=== PATIENT | female | born 1975 | race Caucasian/White ===

== ENCOUNTER 2021-08-07 01:18 | Day surgery (SDC) | payer OTHER, SELFPAY ==
[2021-07-30 14:00] VITALS: BMI 32.3
[2021-08-07 11:19] VITALS: BP 159/108; PULSE 106; RESP 18; TEMP 36.6; O2SAT 100
[2021-08-07] MEDS: LACTATED RINGERS 1,000 ML 150 ML IV CONT (11:25)
--- NOTE | 2021-08-07 12:04 | WPDANESEPPF ---
Anes - Initial Pre Proc Eval Procedure: Operation Date: 08/07/21 12:30 Proposed Procedures p Esophagogastroduodenoscopy & Colonoscopy - Ezekiel Castro MD Date/Time: 08/07/21 12:04 Surgeon: Ezekiel Castro MD Pre Op Diagnosis: abdominal pain Patient Data Age: 46 Gender: F Height: 1.65 m Weight: 85.1 kg Last Vital Signs Temp 36.6 C 08/07/21 11:19 Pulse 106 H 08/07/21 11:19 Resp 18 08/07/21 11:19 BP 159/108 H 08/07/21 11:19 Pulse Ox 100 08/07/21 11:19 Allergies Allergy/AdvReac Type Severity Reaction Status Date / Time No Known Allergies Allergy Verified 08/07/21 11:18 Home Medications Medication Instructions Recorded Confirmed Type cholecalciferol (vitamin D3) 125 125 mcg PO DAILY #30 cap 06/21/21 07/30/21 Rx mcg (5,000 unit) capsule clonidine HCl 0.3 mg tablet 0.3 mg PO DAILY #30 tablet 06/21/21 07/30/21 Rx mupirocin 2 % topical ointment 1 applic TOPICAL TID #22 g 06/21/21 07/30/21 Rx ondansetron HCl 4 mg tablet 4 mg PO Q8H PRN #30 tablet 06/21/21 07/30/21 Rx propranolol 80 mg tablet 80 mg PO Q12H #60 tablet 06/21/21 07/30/21 Rx venlafaxine 37.5 mg 37.5 mg PO DAILY #30 cap 06/21/21 07/30/21 Rx capsule,extended release 24 hr pantoprazole [Protonix] 40 mg PO QAM 07/30/21 07/30/21 History Patient hx anesthesia problems: none Family hx anesthesia problems: none Results Review: All pre-operative results and documents have been reviewed as part of the pre-operative evaluation. [facility] Past Medical History Medical History Bipolar 2 disorder BMI 31.0-31.9,adult Diffuse abdominal pain Hot flashes Hypertension Insomnia Low vitamin D level Schizophrenia Tremors of nervous system Surgical History Surgical History History of History of hysterectomy Family History Family History Other ADHD Alcohol abuse Allergies Anxiety Diabetes mellitus Hyperlipidemia Hypertension Liver disease Lung cancer Social History Social History Smoking packs per day: 1 Smoking cigarettes per day: 20.0 Smoking status: Current every day smoker Tobacco type: cigarettes Alcohol intake: former Substance use: current Substance use type: marijuana Anes - Eval Final PreProcedure Day of Procedure 08/07/21 12:04 Patient weight: obese Heart: regular rate and rhythm Lungs: decreased breath sounds Airway: Mallampati scale class II Neurological: alert and oriented Last oral intake: >/= 8 hours ASA classification: III Emergent: no Anesthetic plan: proceed Anesthesia type and monitoring: general GIVS and standard monitoring Results Review: All pre-operative results and documents have been reviewed as part of the pre-operative evaluation. Informed Consent: The patient's anesthetic plan and its attendant risks and benefits were discussed with the patient/family/POA. Questions were solicited and answers provided to the satisfaction of the patient/family/POA.
--- NOTE | 2021-08-07 12:28 | PM.HPGS ---
History of Present Illness History of Present Illness Consent: Risks, benefits, and alternatives have been discussed and questions answered. Patient agrees to proceed with procedure. Chief complaint: abdominal pain Narrative: Jose Rafael Barnes is a 46 year old female with intermittent abdominal pain, cholecystectomy did not make a difference. She had colonoscopy but over 10 years ago. Review of Systems Constitutional: Constitutional: Denies headache(s) and Denies weakness Eyes: Eyes: Denies blurry vision ENT: Reports Normal hearing present, Denies headache(s) and Denies neck pain Cardiovascular: Cardiovascular: Denies chest pain and Denies dyspnea Respiratory: Respiratory: Denies dyspnea Gastrointestinal: Gastrointestinal: Reports no additional gastrointestinal complaints Genitourinary: Genitourinary: Denies dysuria Musculoskeletal: Musculoskeletal: Denies neck pain Integumentary/Breasts: Skin/Breast: Denies dry skin Neurologic: Reports Normal hearing present, Denies headache(s) and Denies weakness Psychiatric: Psychiatric: Denies anxiety Endocrine: Endocrine: Denies change in body appearance Hematologic/Lymphatic: Hematologic/Lymphatic: Denies easy bleeding Allergic/Immunologic: Allergic/Immunologic: Denies urticaria PMFSH Past Medical History Medical History (Updated 08/07/21 @ 12:28 by Ezekiel Castro MD) Bipolar 2 disorder BMI 31.0-31.9,adult Colon cancer screening Diffuse abdominal pain Hot flashes Hypertension Insomnia Low vitamin D level Schizophrenia Tremors of nervous system Surgical History Surgical History History of History of hysterectomy Family History Family History Other ADHD Alcohol abuse Allergies Anxiety Diabetes mellitus Hyperlipidemia Hypertension Liver disease Lung cancer Social History Social History Smoking packs per day: 1 Smoking cigarettes per day: 20.0 Smoking status: Current every day smoker Tobacco type: cigarettes Alcohol intake: former Substance use: current Substance use type: marijuana Meds Home Medications and Allergies Home Medications Medication Instructions Recorded Confirmed Type cholecalciferol (vitamin D3) 125 125 mcg PO DAILY #30 cap 06/21/21 07/30/21 Rx mcg (5,000 unit) capsule clonidine HCl 0.3 mg tablet 0.3 mg PO DAILY #30 tablet 06/21/21 07/30/21 Rx mupirocin 2 % topical ointment 1 applic TOPICAL TID #22 g 06/21/21 07/30/21 Rx ondansetron HCl 4 mg tablet 4 mg PO Q8H PRN #30 tablet 06/21/21 07/30/21 Rx propranolol 80 mg tablet 80 mg PO Q12H #60 tablet 06/21/21 07/30/21 Rx venlafaxine 37.5 mg 37.5 mg PO DAILY #30 cap 06/21/21 07/30/21 Rx capsule,extended release 24 hr pantoprazole [Protonix] 40 mg PO QAM 07/30/21 07/30/21 History Allergies Allergy/AdvReac Type Severity Reaction Status Date / Time No Known Allergies Allergy Verified 08/07/21 11:18 Vital Signs Vital Signs - 24 hr 08/07/21 11:19 Temperature 97.9 F Pulse Rate 106 H Respiratory Rate 18 Blood Pressure 159/108 H Pulse Oximetry 100 Exam Const: General: comfortable and no acute distress HENMT: General nose exam: Normal nares present Eyes: General: appearance normal, both eyes and all related structures Neck: Neck: no JVD Resp: Auscultation: clear to auscultation bilaterally Cardio: Rate: regular rate Rhythm: regular rhythm GI: Inspection: non-distended GI Palp: Yes Soft to palpation Skin: General skin exam: normal color Neuro: General: gait normal Speech: normal speech Extrem: General: normal to inspection Psych: Mental Status: mental status grossly normal Assessment and Plan Assessment and plan (1) Diffuse abdominal pain: Code(s): R10.84 - Generalized abdominal pain Status: Acute
--- NOTE | 2021-08-07 13:01 | SUR.OPER ---
EGD started at 1231 and ended at 1236. Colonoscopy started at 1241 and ended at 1258.
[2021-08-07 13:02] VITALS: BP 119/77; PULSE 98; RESP 18; O2SAT 100
[2021-08-07 13:12] VITALS: BP 143/90; PULSE 85; RESP 19; O2SAT 100
[2021-08-07 13:22] VITALS: BP 154/79; PULSE 78; RESP 18; O2SAT 100
== END 2021-08-07 13:33 | disposition home or self-care (01) ==
PROVIDERS: PCP Family Medicine; Visit Provider Internal Medicine Gastroenterology
PROC: 0DJ08ZZ Inspection of Upper Intestinal Tract, Via Natural or Artificial Opening Endoscopic (ICD-10-PCS; CPT 43235; principal; 2021-08-07 12:30)
DX: Z12.11 Encounter for screening for malignant neoplasm of colon (principal); R10.84 Generalized abdominal pain; D12.5 Benign neoplasm of sigmoid colon; D12.2 Benign neoplasm of ascending colon; D17.5 Benign lipomatous neoplasm of intra-abdominal organs; D12.3 Benign neoplasm of transverse colon; K29.50 Unspecified chronic gastritis without bleeding; B96.81 Helicobacter pylori [H. pylori] as the cause of diseases classified elsewhere; K64.8 Other hemorrhoids; I10 Essential (primary) hypertension; E55.9 Vitamin D deficiency, unspecified; G47.00 Insomnia, unspecified; F31.9 Bipolar disorder, unspecified; F20.9 Schizophrenia, unspecified; F17.210 Nicotine dependence, cigarettes, uncomplicated
CPT/HCPCS: 45385; 43239; 88305; 88342; J2704; J7120

== ENCOUNTER 2021-08-26 18:34 | Emergency (ER) | payer OTHER, SELFPAY ==
[2021-08-26 19:05] VITALS: BP 151/100; PULSE 75; RESP 16; TEMP 35.9; O2SAT 100
== END 2021-08-26 19:30 | disposition left against medical advice (07) ==
LOC: ANHED 19:54
PROVIDERS: PCP Family Medicine
DX: R29.6 Repeated falls (principal)
CPT/HCPCS: 99199

== ENCOUNTER 2021-09-09 13:19 | Outpatient (CLI) | payer OTHER, SELFPAY ==
--- NOTE | ~2021-09-09 | MR_ITS ---
EXAMINATION: MR brain/brain stem wo con DATE: 09/09/2021 13:58 INDICATION: Frequent falls. Unspecified injury of the head. TECHNIQUE: Magnetic resonance imaging (MRI) of the brain and brainstem was performed without intraven ous contrast. Sequences included sagittal and axial T1-weighted SE, axial diffusion-weighted FS SE, a xial T2*-weighted GRE, axial T2-weighted FLAIR, and axial T2-weighted FSE. Apparent diffusion coeffic ient (ADC) maps were created. COMPARISON: None. FINDINGS: There are no areas of restricted diffusion to suggest acute infarction. No intracranial hemorrhage or abnormal intracranial mass lesion. A couple tiny foci of nonspecific increased white matter T2 signa l in the bilateral frontal lobes which is within normal limits for age. There are no intraparenchymal signal abnormalities seen on the other pulse sequences. The ventricles are symmetric and normal in s ize. There are no abnormal extra-axial fluid collections. Flow voids are seen in the cerebral arterie s on the T2-weighted sequences consistent with their expected patency. Mucous retention cyst and othe rwise mild mucosal thickening in the right maxillary sinus. Additional mild mucosal thickening the bi lateral frontal sinuses and more prominent mucosal thickening the bilateral ethmoid sinuses. Visualiz ed orbits and soft tissues are unremarkable. IMPRESSION: 1. A couple tiny foci of nonspecific white matter T2 hyperintensity which is within normal limits for age. Otherwise normal brain. 2. Prominent sinus disease. Reviewed, dictated and finalized at location A. IMPRESSION: 1. A couple tiny foci of nonspecific white matter T2 hyperintensity which is wi thin normal limits for age. Otherwise normal brain. 2. Prominent sinus disease.
== END 2021-09-09 13:20 | disposition home or self-care (01) ==
PROVIDERS: PCP Family Medicine; Visit Provider Family Medicine
DX: S09.90XA Unspecified injury of head, initial encounter (principal); X58.XXXA Exposure to other specified factors, initial encounter; R93.0 Abnormal findings on diagnostic imaging of skull and head, not elsewhere classified
CPT/HCPCS: 70551

== ENCOUNTER 2021-12-31 14:00 | Outpatient (CLI) | payer BC, SELFPAY ==
--- NOTE | ~2021-12-31 | CT_ITS ---
EXAMINATION: CT sinus wo con DATE: 12/31/2021 14:19 INDICATION: Chronic sinusitis TECHNIQUE: Computed tomography (CT) of the paranasal sinuses was performed without contrast. Iterativ e reconstruction technique was employed. Exam dose: 352.32 mGy-cm total exam DLP. COMPARISON: None FINDINGS: There is mild leftward bowing of the nasal septum. Mild intralamellar cell of right middle nasal turbinate. More prominent interlamellar cell of left mi ddle nasal turbinate. Bilateral nasal antral windows with resection of the uncinate processes. There is a polyp or mucous retention cyst in the lower aspect of each maxillary sinus, larger on the right, measuring up 1.5 cm. Minimal focal mucosal periosteal thickening of the maxillary sinuses. There is patchy opacification of the ethmoid air cells. The frontal and sphenoid sinuses are well-dev eloped and aerated. The mastoid air cells are normally developed and aerated bilaterally. Minimal and inner ear apparatus appear normal bilaterally. IMPRESSION: Mild leftward bowing of nasal septum Interlamellar cell of middle nasal turbinates, more prominent on the left Status post bilateral nasal antral windows Polyp or mucous retention cyst at lower maxillary sinuses, larger on right Patchy opacification of ethmoid air cells Reviewed, dictated and finalized at Location [facility]. Reviewed, dictated and finalized at location B.
== END 2021-12-31 14:01 | disposition home or self-care (01) ==
PROVIDERS: PCP Family Medicine; Visit Provider Otolaryngology
DX: J32.9 Chronic sinusitis, unspecified (principal); J34.2 Deviated nasal septum; J34.3 Hypertrophy of nasal turbinates; R09.81 Nasal congestion; R09.82 Postnasal drip; R44.8 Other symptoms and signs involving general sensations and perceptions; R51.9 Headache, unspecified
CPT/HCPCS: 70486

== ENCOUNTER 2022-01-29 14:22 | Outpatient (CLI) | payer BC, SELFPAY ==
--- NOTE | 2022-01-29 14:30 | ECG_ITS ---
Measurements Intervals [place] Rate: 91 P: 59 NM: 140 QRS: 42 QRSD: 86 T: 26 QT: 354 QTc: 437 Interpretive Statements SINUS RHYTHM RSR' IN V1 OR V2, PROBABLY NORMAL VARIANT BASELINE ARTIFACT- I, II, III, AVR, AVL, AVF BORDERLINE ECG NO PREVIOUS ECG AVAILABLE FOR COMPARISON Electronically Signed On 01-29-2022 15:01:37 CDT by Abe Ewing D.O.
== END 2022-01-29 14:23 | disposition home or self-care (01) ==
LOC: ANHSURGERY 14:25
PROVIDERS: PCP Family Medicine; Visit Provider Otolaryngology
DX: F17.200 Nicotine dependence, unspecified, uncomplicated (principal); Z01.818 Encounter for other preprocedural examination; R94.31 Abnormal electrocardiogram [ECG] [EKG]
CPT/HCPCS: 93005

== ENCOUNTER 2022-01-31 01:49 | Day surgery (SDC) | payer BC, SELFPAY ==
[2022-01-28 14:43] VITALS: BMI 32.8
--- NOTE | 2022-01-28 14:45 | SUR.PREOP ---
Report to the Outpatient Waiting Room, entrance under the green pavilion located off [facility], at time 0630_on date 01/31/22_. OR Time: __0830_. Time changes happen often and if your time is changed the preop area will call you the afternoon before. - You and your visitor will be asked to self-screen and do not enter if you have any COVID symptoms. - Only one visitor and NO children visitors are allowed at this time. - The patient visitor is requested to leave or wait in car when not with patient due to restrictions. - A mask is required within the hospital. Patients may have clear liquids (water, carbonated beverages, clear teas, apple juice) until 3 hours prior to surgery with a maximum of 20 ounces. - No food from midnight until time of surgery - Infants may have breast milk until 4 hours before surgery, infant formula 6 hours prior to surgery. - Children will be allowed to drink immediately following surgery. If applicable, please bring a bottle or sippy cup to assist with drinking. Juice, water, soda, and popsicles are readily available. For infants on formula, please bring formula the day of surgery. Pacifiers are allowed. Take the following medications with a SIP of water the morning of surgery: _propanolol Medications to discontinue per physician __vitamin Date to take last dose___01/28/22 Please no make-up, nail divehi, hairspray, perfume, deodorant, or body powder the day of surgery. No jewelry (including any body piercings) or valuables the day of surgery, leave them at home. Please take a shower or bath the night before, or the morning of, surgery with an antibacterial soap. Wear comfortable, loose fitting clothing. Children are encouraged to wear pajamas. - Jewelry must be removed prior to entering the operating room. Rings and piercings that are not removed may be cut off. - The hospital will not accept responsibility for valuables. - Please leave all valuables, including medications, at home the day of surgery. If you are going home after surgery, a licensed class a truck driver must drive you home. - NO public transportation without another adult. - We recommend that an adult stay with you for 24 hours following discharge. - We also recommend that you do not drive, make important decision, drink alcoholic beverages, or take any drugs that were not prescribed by your health care provider for at least 24 hours after your discharge time. For Pediatric surgeries, we recommend two adults accompany the child home (only one inside the building at this time). Follow any additional instructions given to you from your surgeon. If you or anyone in your household have experienced Covid symptoms in the past week, please notify your surgeon or the nurse liaison at the phone number below for possible testing. Telephone instructions given to _nicho euceda and asked if any additional questions and then verbalized understanding. Patient advised to call surgeon office or pre surgery nurse liaison [phone] if any additional questions.
--- NOTE | 2022-01-30 08:00 | PM.IMHP ---
H&P: HPI History of Present Illness Date/Time: 01/30/22 08:00 Chief Complaint: nasal obstruction nasal congestion turbinate hypertrophy septal deviation panda bullosa chronic sinusitis recurrent sinusitis Narrative: planned surgical procedure Review of Systems Review of Systems: All systems reviewed & are unremarkable except as noted in HPI and below [facility] Past Medical History Medical History (Updated 01/30/22 @ 08:02 by Herminio Calderon MD) Bipolar 2 disorder BMI 31.0-31.9,adult BMI 32.0-32.9,adult BMI greater than 30 Changing skin lesion Colon cancer screening Diffuse abdominal pain Head trauma Helicobacter positive gastritis Hot flashes Hypertension Insomnia Irritable bowel syndrome with constipation Low vitamin D level Open comedone Right shoulder pain Schizophrenia Tremors of nervous system Surgical History Surgical History History of History of hysterectomy Family History Family History Grandparent Alcohol abuse Father Cancer Mother Diabetes mellitus Hypertension Depression Thyroid disorder Daughter Thyroid disorder Other ADHD Allergies Anxiety Hyperlipidemia Liver disease Lung cancer Social History Social History Smoking packs per day: 1 Smoking cigarettes per day: 20.0 Smoking status: Current some day smoker Tobacco type: cigarettes Additional smoking assessment comments: 1 ppd x 30 years Alcohol intake: former Substance use: current Substance use type: marijuana Other substance usage details: smoking 2x daily Spiritual care concerns: No Meds Home Medications and Allergies Home Medications Medication Instructions Recorded Confirmed Type pantoprazole 40 mg tablet,delayed 40 mg PO QAM #90 tabs 10/30/21 01/28/22 Rx release (Protonix) cholecalciferol (vitamin D3) 125 125 mcg PO DAILY #30 caps 12/30/21 01/28/22 Rx mcg (5,000 unit) capsule olanzapine 5 mg tablet 5 mg PO QHS #30 tabs 12/30/21 01/28/22 Rx ondansetron HCl 4 mg tablet 4 mg PO Q8H PRN nausea and 12/30/21 01/28/22 Rx vomiting #30 tabs propranolol 80 mg tablet 80 mg PO Q12H #60 tabs 12/30/21 01/28/22 Rx zaleplon 10 mg capsule 20 mg PO QHS PRN sleep #60 caps 12/30/21 01/28/22 Rx linaclotide 72 mcg capsule 72 mcg PO DAILY #30 caps 01/02/22 01/28/22 Rx (Linzess) Allergies Allergy/AdvReac Type Severity Reaction Status Date / Time No Known Allergies Allergy Verified 01/28/22 14:20 Exam Narrative: septal deviation turbinate I Assessment and Plan Assessment and plan (1) Nasal congestion: Code(s): R09.81 - Nasal congestion Status: Acute Assessment and Plan: OR for image guided endoscopic bilateral maxillary antrostomies without tissue removal, total ethmoidectomies, sphenoidotomies, left panda bullosa resection, endoscopic assisted septoplasty, inferior turbinate submucosal reduction outfracture, risks discussed including blindness change in vision CSF leak brain damage brain septal perforation failure to resolve symptoms bleeding need for splint placement need for postoperative pain medication antibiotics constipation damage to any structure involvement surgery damage to any structure involved during the induction and or maintenance of anesthesia. Patient voiced understanding of these risks and agreed. (2) Chronic sinusitis: Qualifiers: Sinusitis location: unspecified location Qualified Code(s): J32.9 - Chronic sinusitis, unspecified Code(s): J32.9 - Chronic sinusitis, unspecified Status: Acute (3) Facial pressure: Code(s): R44.8 - Other symptoms and signs involving general sensations and perceptions Status: Acute (4) Facial pain: Code(s): R51.9 - Headache, unspecified Status: Acute (5) Ear pre
[2022-01-31] VITALS (12 sets, daily range): BP systolic 107–143; BP diastolic 67–96; PULSE 70–88; RESP 13–20; TEMP 36.7; O2SAT 93–100
--- NOTE | 2022-01-31 07:12 | WPDHPUPDATE1 ---
History and Physical Update Update Date/Time: 01/31/22 07:12 History and Physical has been reviewed, including an updated exam of the patient. There are NO changes in the patient's condition. Risks, benefits, and alternatives have been discussed and questions answered. Patient agrees to proceed with procedure.
--- NOTE | 2022-01-31 07:12 | WPDANESEPPF ---
Anes - Initial Pre Proc Eval Procedure: Operation Date: 01/31/22 08:30 Proposed Procedures p Image Guided Bilateral Maxillary Antrostomy without Tissue Removal, Total Ethmoidectomy, Bilateral Sphenoidotomies, Left Resection Latha Bullosa, Bilateral Inferior Turbinectomy with Outfracture - Herminio Calderon MD s Endoscopic Septoplasty - Herminio Calderon MD Date/Time: 01/31/22 07:12 Surgeon: Herminio Calderon MD Pre Op Diagnosis: Chronic Sinusitis Patient Data Age: 46 Gender: F Height: 1.65 m Weight: 89.54 kg Allergies Allergy/AdvReac Type Severity Reaction Status Date / Time No Known Allergies Allergy Verified 01/30/22 14:50 Home Medications Medication Instructions Recorded Confirmed Type cholecalciferol (vitamin D3) 125 125 mcg PO DAILY #30 caps 12/30/21 01/30/22 Rx mcg (5,000 unit) capsule olanzapine 5 mg tablet 5 mg PO QHS #30 tabs 12/30/21 01/30/22 Rx ondansetron HCl 4 mg tablet 4 mg PO Q8H PRN nausea and 12/30/21 01/30/22 Rx vomiting #30 tabs propranolol 80 mg tablet 80 mg PO Q12H #60 tabs 12/30/21 01/30/22 Rx zaleplon 10 mg capsule 20 mg PO QHS PRN sleep #60 caps 12/30/21 01/30/22 Rx pantoprazole 40 mg tablet,delayed 40 mg PO QAM #90 tabs 01/30/22 01/30/22 Rx release (Protonix) Patient hx anesthesia problems: none Family hx anesthesia problems: none Results Review: All pre-operative results and documents have been reviewed as part of the pre-operative evaluation. [facility] Past Medical History Medical History Bipolar 2 disorder BMI 31.0-31.9,adult BMI 32.0-32.9,adult BMI greater than 30 Changing skin lesion Colon cancer screening Diffuse abdominal pain Head trauma Helicobacter positive gastritis Hot flashes Hypertension Insomnia Irritable bowel syndrome with constipation Low vitamin D level Open comedone Right shoulder pain Schizophrenia Tremors of nervous system Surgical History Surgical History History of History of hysterectomy Family History Family History Grandparent Alcohol abuse Father Cancer Mother Diabetes mellitus Hypertension Depression Thyroid disorder Daughter Thyroid disorder Other ADHD Allergies Anxiety Hyperlipidemia Liver disease Lung cancer Social History Social History Smoking packs per day: 1 Smoking cigarettes per day: 20.0 Smoking status: Current some day smoker Tobacco type: cigarettes Additional smoking assessment comments: 1 ppd x 30 years Alcohol intake: former Substance use: current Substance use type: marijuana Other substance usage details: smoking 2x daily Living arrangements: with family Spiritual care concerns: No Anes - Eval Final PreProcedure Day of Procedure 01/31/22 07:12 Patient weight: obese Heart: regular rate and rhythm Lungs: decreased breath sounds Airway: Mallampati scale class III Neurological: alert and oriented Last oral intake: >/= 8 hours ASA classification: III Anesthetic plan: proceed Anesthesia type and monitoring: general ETT and standard monitoring Results Review: All pre-operative results and documents have been reviewed as part of the pre-operative evaluation. Informed Consent: The patient's anesthetic plan and its attendant risks and benefits were discussed with the patient/family/POA. Questions were solicited and answers provided to the satisfaction of the patient/family/POA.
[2022-01-31] MEDS: LACTATED RINGERS 1,000 ML 30 ML IV CONT ×2 (07:30→10:59)
[2022-01-31] MEDS: ACETAMINOPHEN 500 MG TABLET 1000 MG PO (07:30)
[2022-01-31] MEDS: OXYMETAZOLINE HCL 0.05% NAS 15 ML BTL (*BKC) 1 SPRAY NASAL (07:30)
[2022-01-31] MEDS: ceFAZolin 2 GM/D5W 50 ML 2 GM/50 ML BAG IVPB (08:22)
[2022-01-31] MEDS: LIDO 1%/EPINEPHRINE 1:100,000 10 ML VIAL 2 ML INFILTRATE (08:35)
[2022-01-31] MEDS: fentaNYL CITRATE INJ (*CRX) 100 MCG/2 ML VIAL 25 MCG IV PUSH ×6 (11:25→12:19)
--- NOTE | 2022-01-31 11:46 | W.PM.PROC2 ---
Procedure Note - Detailed Date of Procedure 01/31/22 Pre-op Diagnosis Chronic Sinusitis, nasal polyps, panda bullosa, nasal obstruction, nasal congestion, turbinate hypertrophy Post-op Diagnosis Same Procedure Performed Bilateral image guided endoscopic total ethmoidectomies revision maxillary antrostomies sphenoidotomies all without tissue removal left panda bullosa resection endoscopic assisted septoplasty inferior turbinate reduction with outfracture Surgeon Herminio Calderon MD Anesthesia General Indications See above Findings Left caudal septal deviation corrected turbinate hypertrophy well reduced no perforations of polypoid disease tissue within all of the aforementioned sinuses maxillary antrostomies widened total ethmoids taken to skull base orbit septum no CSF leak no orbital injury sphenoid opened all the way down to their dependent areas overall excellent surgery minimal blood loss 40-50 cc Description of Procedure Patient identified consent verified. Patient brought operating. Time-out performed. General anesthesia induced endotracheal tube secured. Image guidance initiated confirmed. Patient prepped draped Afrin-soaked pledgets placed allowed to sit for 5 minutes then removed. Second time-out performed. 50 cc 1% local 1 100,000 parts epinephrine injected to the left panda the septum inferior turbinates. Inferior turbinates reduced submucosally with 2 mm turbinate blade bilaterally and then outfractured. [place] incision made anterior left septum left nasal septal flap elevated with 7 [place] suction crossed over the osteotome osteotome utilized to remove the bent septum septum was closed with [place] incision closed with 5 0 fast gut. Since the septal dissection was minimal was sutured with a quilting 4-0 fast or 4-0 plain gut suture. At this point the turbinates were done bilaterally the septum was done. Left panda incised inferiorly with a sickle blade deviated panda excess panda with microdebrider is straight through cut lateral aspect. Straight through cut utilized to widen the maxillary antrostomies double ball tip probe utilized to connect the natural os is. Microdebrider and Kerr[place] utilized to perform total ethmoidectomies bilaterally. Sphenoid was located with image guidance, to that point, image guidance utilized throughout the case for the sphenoid for the sinus portion. Micro debrider Kerr[place] utilized performed total ethmoidectomies all the way to skull base all the way to the back of the orbit lateral to the orbit medial to the septum. Sphenoid located with image guidance widened using 1 Kerrison 3 Kerrison and sphenoid punch. At this point the frontal outflow readily visible maxillary antrostomies were wide open ethmoid air cells were now. Afrin-soaked pledgets were placed for 5 minutes to sit. There was no active bleeding. No pack was placed bilaterally to stent the middle turbinates which were somewhat destabilized. I performed all dictated portions of procedure. Blood loss 50 cc. No complications. Care the patient given Anesthesiology Estimated Blood Loss -50.0 Drains No Packing Yes (Deandre) Pathology None sent Complications No immediate complications Condition Stable Disposition PACU
[2022-01-31] MEDS: oxyCODONE HCL (*CRX) 5 MG TAB IR PO (12:42)
== END 2022-01-31 13:20 | disposition home or self-care (01) ==
PROVIDERS: PCP Family Medicine; Visit Provider Otolaryngology
PROC: (CPT 31256; principal; 2022-01-31 08:30)
PROC: (CPT 30520; 2022-01-31 08:30)
DX: J32.9 Chronic sinusitis, unspecified (principal); R09.81 Nasal congestion; R44.8 Other symptoms and signs involving general sensations and perceptions; R51.9 Headache, unspecified; H93.8X9 Other specified disorders of ear, unspecified ear; R09.82 Postnasal drip; J34.3 Hypertrophy of nasal turbinates; J34.2 Deviated nasal septum; J34.89 Other specified disorders of nose and nasal sinuses; F17.210 Nicotine dependence, cigarettes, uncomplicated
CPT/HCPCS: 31256; 30520; 30140; 31257; 31240; 61782; A9270; J0330; J0690; J1100; J2250; J2370; J2405; J2704; J3010; J7120

== ENCOUNTER 2022-07-23 18:45 | Emergency (ER) | payer BC, SELFPAY ==
--- NOTE | ~2022-07-23 | CT_ITS ---
EXAMINATION: CT abdomen pelvis wo con DATE: 07/24/2022 00:11 INDICATION: left flank pain TECHNIQUE: Computed tomography (CT) of the abdomen and pelvis was performed without intravenous contr ast. Automated exposure control and iterative reconstruction technique were employed. The dose-length product was 524.65 mGy-cm. COMPARISON: CT renal 09/27/2005. FINDINGS: Lower thorax: Minimal bibasilar atelectasis. Liver: Normal. Biliary/Gallbladder: Gallbladder is absent. No bile duct dilation. Pancreas: No mass or duct dilation. Spleen: Normal. Adrenals:No mass. Kidneys: Punctate left midpole nonobstructing calcification. No suspicious mass. No hydronephrosis. GI tract: No small or large bowel dilation. Normal appendix. Mesentery/Peritoneum: No ascites, mass, or free air. Retroperitoneum: No mass. Atherosclerotic abdominal aortic and/or arterial calcifications. Pelvis: Moderately distended urinary bladder. Punctate calcification in the dependent urinary bladder , may represent a recently passed stone. No wall thickening. Surgically absent uterus. Normal bilater al ovaries.. Soft Tissues: Small uncomplicated fat-containing umbilical and infraumbilical ventral abdominal wall hernias Bones: No acute osseous finding. IMPRESSION: Punctate calcification in the dependent bladder lumen, may represent a recently passed stone. No acut e abdominopelvic process detected. Specifically there is no CT evidence of obstructive uropathy or di verticulitis. Reviewed, dictated and finalized at location K. IMPRESSION: Punctate calcification in the dependent bladder lumen, may represent a recently passed stone. No acute abdominopelvic process detected. Specifically there is no CT evidence of obstructive uropathy or diverticulitis.
[2022-07-23 19:31] VITALS: BP 168/96; PULSE 96; RESP 18; TEMP 36.9; O2SAT 99
[2022-07-23 19:36] VITALS: BP 135/91; PULSE 86; RESP 20; O2SAT 97
[2022-07-23 20:21] LABS: Appearance Urine Cloudy (Clear); Bacteria Urine 4+ /hpf; Bilirubin Urine Negative (Negative); Blood Urine Negative (Negative); Color Urine Yellow (Yellow); Glucose Urine UA Negative (Negative); Hyaline Casts Urine Present /lpf; Ketones Urine Negative (Negative); Leukocyte Esterase Ur Trace LEU/UL (Negative); Nitrate Urine Positive (Negative); Non Pathogenic Casts 0-2; Protein Urine Negative (Negative); Specific Grav Ur 1.006 (1.001-1.035); Squamous Epithelial Cell Urine Moderate /hpf (Few); Urobilinogen Urine 0.2 mg/dL (<2.0); pH Urine 7.5 (5.0-9.0)
[2022-07-23 20:26] LABS: Add Urine Microscopic? YES
[2022-07-23 21:19] LABS: Basophils Percent Auto 0.3 % (0.2-1.2); Eosinophils Absolute Auto 0.1 K/mm3 (0-0.3); Eosinophils Percent Auto 0.9 % (0-4.4); Hematocrit 45.3 % (37.0-47.0); Hemoglobin 15.1 g/dL (12.0-15.0); Immature Granulocyte Absolute 0.05 K/mm3 (0.00-0.031); Immature Granulocyte Percent A 0.5 % (0-0.5); Lymphocytes Absolute Auto 4.24 K/mm3 (0.9-3.2); Mean Corpuscular HGB Conc 33.3 g/dl (32-36); Mean Corpuscular Hemoglobin 31.1 pg (26-34); Mean Corpuscular Volume 93.2 fl (80-100); Mean Platelet Volume 9.4 fl (7.4-10.4); Monocytes Absolute Auto 0.6 K/mm3 (0.1-0.6); Monocytes Percent Auto 5.5 % (2.6-8.5); Neutrophils Absolute Auto 5.6 K/mm3 (1.3-6.7); Neutrophils Percent Auto 52.8 % (45.5-73.1); Platelet Count Result 299 k/mm3 (150-375); Red Blood Count 4.86 M/mm3 (4.2-5.4); Red Cell Distribution Width 12.6 % (11.5-14.5); White Blood Count 10.6 K/mm3 (4.5-10.0)
[2022-07-23 21:29] LABS: Alanine Aminotransferase 29 U/L (6-35); Albumin Level 4.7 g/dL (3.5-5.1); Alkaline Phosphatase 95 U/L (38-126); Anion Gap 6 mmol/L (8-16); Aspartate Amino Transferase 26 U/L (14-36); Bilirubin,Total 0.5 mg/dL (0.2-1.3); Blood Urea Nitrogen 8 mg/dL (7-17); Carbon Dioxide 32 mmol/L (22-30); Chloride 103 mmol/L (98-107); Estimated CRCL calculation 100 ml/min; Estimated Glomerular Filt Rate > 60; Glucose 98 mg/dL (65-110); Potassium 3.7 mmol/L (3.4-5.0); Sodium 141 mmol/L (137-145)
--- NOTE | 2022-07-23 23:29 | ED.ABDPAIN ---
HPI - Abdominal Pain General Chief Complaint: Abdominal Pain <JAMESON Shelton Last Filed: 07/24/22 03:34> Stated Complaint: left kidney pain - hx of stones <JAMESON Shelton Last Filed: 07/24/22 03:34> Time Seen by Provider: 07/23/22 22:44 <Elias Trinidad PA-C - Last Filed: 07/24/22 03:34> Source: patient <JAMESON Shelton Last Filed: 07/24/22 03:34> Mode of arrival: ambulatory <JAMESON Shelton Last Filed: 07/24/22 03:34> Limitations: no limitations <JAMESON Shelton Last Filed: 07/24/22 03:34> History of Present Illness HPI narrative: This is a 47-year-old female who presents with left flank pain starting this morning. She has a long history of kidney stones and feels like her symptoms are similar today. She reports the pain is mainly in the left flank and radiates down into the left side of the abdomen and into the groin. Does report nausea. Denies vomiting. She reports urinary frequency but unable to urinate a full stream. Denies hematuria. <JAMESON Shelton Last Filed: 07/24/22 03:34> Related Data Allergies/Adverse Reactions: Allergies Allergy/AdvReac Type Severity Reaction Status Date / Time No Known Allergies Allergy Verified 07/23/22 18:46 <JAMESON Shelton Last Filed: 07/24/22 03:34> Review of Systems Review of Systems: CONSTITUTIONAL: Denies fever, chills, or sweats. EYES: Denies visual changes, redness, or discharge. ENT: Denies rhinorrhea, congestion, sore throat, or otalgia. CARDIOVASCULAR: Denies chest pain, palpitations, or edema. RESPIRATORY: Denies cough or dyspnea. GASTROINTESTINAL: Endorses left flank pain radiating into the left abdomen. Endorses nausea denies other abdominal pain, vomiting, or diarrhea. GENITOURINARY: Denies dysuria or hematuria. SKIN: Denies rash or itching. MUSCULOSKELETAL: Denies back pain, joint pain, or myalgia. NEUROLOGIC: Denies headache, numbness, dizziness, or weakness. PSYCHIATRIC: Denies anxiety or depression. <Elias Trinidad PA-C - Last Filed: 07/24/22 03:34> [facility] Past Medical History Medical History: Medical History Bipolar 2 disorder BMI 31.0-31.9,adult BMI 32.0-32.9,adult BMI 34.0-34.9,adult BMI greater than 30 Bronchitis Changing skin lesion Colon cancer screening Diffuse abdominal pain Head trauma Helicobacter positive gastritis Hot flashes Hypertension Insomnia Irritable bowel syndrome with constipation Low vitamin D level Open comedone Right shoulder pain Schizophrenia Tremors of nervous system <JAMESON Shelton Last Filed: 07/24/22 03:34> Surgical History Surgical History: Surgical History History of History of hysterectomy <Elias Trinidad PA-C - Last Filed: 07/24/22 03:34> Family History Family History: Family History Grandparent Alcohol abuse Father Cancer Mother Diabetes mellitus Hypertension Depression Thyroid disorder Daughter Thyroid disorder Other ADHD Allergies Anxiety Hyperlipidemia Liver disease Lung cancer <JAMESON Sehlton Last Filed: 07/24/22 03:34> Social History Social History: Social History (Updated 07/16/22 @ 11:40 by LOI Cabrera) Smoking packs per day: 1 Smoking cigarettes per day: 20.0 Smoking status: Current some day smoker Tobacco type: cigarettes Additional smoking assessment comments: 1 ppd x 30 years Alcohol intake: former Substance use: current Substance use type: marijuana Other substance usage details: smoking 2x daily Lack of Transportation: No Lack of Food: Never True Current Housing: I Have Housing Concerned About Future Housing: No Difficulty Paying Gas/Electric Bills: No Difficulty Paying for Meds: YES Currently Unemployed: No Education: High Scho
[2022-07-23] MEDS: fentaNYL CITRATE INJ (*CRX) 100 MCG/2 ML VIAL 50 MCG IV PUSH (23:42)
[2022-07-23] MEDS: ONDANSETRON INJ 4 MG/2 ML VIAL IV PUSH (23:43)
[2022-07-23] MEDS: SODIUM CHLORIDE 0.9% IV 1,000 ML 999 ML IV CONT (23:43)
[2022-07-24] MEDS: fentaNYL CITRATE INJ (*CRX) 100 MCG/2 ML VIAL 50 MCG IV PUSH (00:52)
[2022-07-24 01:35] VITALS: BP 127/85; PULSE 76; RESP 17; O2SAT 98
== END 2022-07-24 01:48 | disposition home or self-care (01) ==
PROVIDERS: Preventive Medicine Aerospace Medicine; Emergency Provider Physician Assistant; PCP Family Medicine
DX: N20.0 Calculus of kidney (principal); F17.210 Nicotine dependence, cigarettes, uncomplicated; F31.81 Bipolar II disorder; I10 Essential (primary) hypertension; F20.9 Schizophrenia, unspecified
CPT/HCPCS: 36415; 74176; 80053; 81001; 85025; 87077; 87086; 87186; 96361; 96374; 96375; 96376; 99284; J2405; J3010; J7030

== ENCOUNTER 2022-08-26 12:33 | Outpatient (CLI) | payer BC, SELFPAY ==
--- NOTE | ~2022-08-26 | XR_ITS ---
EXAMINATION: XR abdomen/kub 1V INDICATION: Microscopic hematuria TECHNIQUE: Supine views of the abdomen were obtained on 2 radiographs. COMPARISON: CT, 07/23/2022 FINDINGS: No urolithiasis is identified. The known left kidney stone is obscured by bowel contents. T here are phleboliths of the pelvis. The visualized lung bases are clear. Cholecystectomy clips are no manju. There is mild osteoarthritis of the hips. IMPRESSION: 1. No urolithiasis identified. Reviewed, dictated and finalized at location L.
== END 2022-08-26 12:34 | disposition home or self-care (01) ==
PROVIDERS: PCP Family Medicine; Visit Provider Physician Assistant Medical
DX: R31.21 Asymptomatic microscopic hematuria (principal); Z87.442 Personal history of urinary calculi
CPT/HCPCS: 74018

== ENCOUNTER 2023-01-27 14:11 | Outpatient (CLI) | payer BC, SELFPAY ==
--- NOTE | ~2023-01-27 | CT_ITS ---
EXAMINATION: CT abdomen pelvis wo/w con DATE: 01/27/2023 14:59 INDICATION: Gross hematuria TECHNIQUE: Computed tomography (CT) of the abdomen and pelvis was performed without and with 1 30 cc Omnipaque 350 intravenous contrast. The dose-length product was 2871.10 mGy-cm. Automated exposure co ntrol and iterative reconstruction technique were employed. COMPARISON: CT dated 07/23/2022. FINDINGS: There are fissural nodules on the right, largest measuring 9 x 6 mm. There is emphysema. Th ere is dependent atelectasis. No endobronchial lesions aren't size is normal. No significant pleural or pericardial effusion. There is a 3 mm nonobstructing left renal stone. There is a subcutaneous cys t measuring 2.2 cm in the left gluteal region, likely sebaceous cysts. Fatty infiltration of the liver. The spleen, pancreas, adrenal glands and kidneys are unremarkable. N onobstructive bowel pattern. No significant vascular abnormality. No lymphadenopathy. Ureters are nor mal in course and caliber. Bladder is unremarkable. Moderate lumbar spondylosis. IMPRESSION: 1. Nonobstructing 3 mm left renal stone. 2: Right fissural nodules measuring up to 8 mm. Recommend follow-up low dose CT chest in 12 months. Reviewed, dictated and finalized at location B.
--- NOTE | ~2023-01-27 | XR_ITS ---
EXAMINATION: XR abdomen/kub 1V DATE: 01/27/2023 14:38 INDICATION: Gross hematuria. TECHNIQUE: A supine view of the abdomen on 2 radiographs was obtained. COMPARISON: CT abdomen and pelvis 01/27/2023 FINDINGS: There are no dilated loops of bowel. Surgical clips in the right upper quadrant are likely from cholecystectomy. The kidneys are obscured by bowel. There are phleboliths in the pelvis. IMPRESSION: 1. No visible urolithiasis. Reviewed, dictated and finalized at location E. IMPRESSION: 1. No visible urolithiasis.
[2023-01-27 14:45] LABS: Estimated Glomerular Filt Rate > 60
== END 2023-01-27 14:12 | disposition home or self-care (01) ==
PROVIDERS: PCP Family Medicine; Visit Provider Nurse Practitioner Adult Health
DX: R31.0 Gross hematuria (principal); N20.0 Calculus of kidney
CPT/HCPCS: 74018; 74178; Q9967

== ENCOUNTER → 2023-02-16 14:24 | Outpatient (REF) | payer BC, SELFPAY | LOC: ANHLAB 14:24 | PROVIDERS: PCP Family Medicine; Visit Provider Plastic Surgery | DX: L72.0 Epidermal cyst (principal) | CPT/HCPCS: 88305 ==

== ENCOUNTER 2023-02-21 10:52 | Outpatient (CLI) | payer BC, SELFPAY ==
--- NOTE | ~2023-02-21 | CT_ITS ---
EXAMINATION: CT sinus wo con DATE: 02/21/2023 11:18 INDICATION: Chronic sinusitis TECHNIQUE: Computed tomography (CT) of the paranasal sinuses was performed without intravenous contra st. The dose-length product was 340.69 mGy-cm. Automated exposure control and iterative reconstruction technique were employed. COMPARISON: CT dated 12/31/2021 FINDINGS: There is mucosal thickening of the frontal, ethmoid, sphenoid and maxillary sinuses. There are surgical changes bilaterally consistent with previous resection of the ostiomeatal units. No sign ificant nasal septal deviation. There is a mucous retention cyst of the right maxillary sinus. IMPRESSION: 1. Moderate pansinusitis. Reviewed, dictated and finalized at location A. IMPRESSION: 1. Moderate pansinusitis.
== END 2023-02-21 10:53 | disposition home or self-care (01) ==
LOC: ANHIMG 10:55
PROVIDERS: PCP Family Medicine; Visit Provider Otolaryngology
DX: J32.4 Chronic pansinusitis (principal)
CPT/HCPCS: 70486

== ENCOUNTER 2023-04-21 00:46 | Day surgery (SDC) | payer BC, SELFPAY ==
--- NOTE | 2023-04-20 07:52 | PM.IMHP ---
H&P: HPI History of Present Illness Date/Time: 04/20/23 07:52 Chief Complaint: Chronic sinusitis recurrent sinusitis Narrative: planned surgical procedure Review of Systems Review of Systems: All systems reviewed & are unremarkable except as noted in HPI and below [facility] Past Medical History Medical History Bipolar 2 disorder BMI 31.0-31.9,adult BMI 32.0-32.9,adult BMI 34.0-34.9,adult BMI 36.0-36.9,adult BMI greater than 30 Bronchitis Changing skin lesion Colon cancer screening Diffuse abdominal pain Gastroesophageal reflux disease Head trauma Helicobacter positive gastritis Hot flashes Hypertension Insomnia Irritable bowel syndrome with constipation Low vitamin D level Open comedone Right shoulder pain Schizophrenia Tremors of nervous system Surgical History Surgical History History of History of hysterectomy Family History Family History Grandparent Alcohol abuse Father Cancer Mother Diabetes mellitus Hypertension Depression Thyroid disorder Daughter Thyroid disorder Sibling GERD (gastroesophageal reflux disease) Other ADHD Allergies Anxiety Hyperlipidemia Liver disease Lung cancer Social History Social History (Updated 02/16/23 @ 14:04 by Pennie Corey MA) Smoking packs per day: 1 Smoking cigarettes per day: 20.0 Smoking status: Current every day smoker Tobacco type: cigarettes Second hand tobacco smoke exposure: Yes Additional smoking assessment comments: 1 ppd x 30 years Alcohol intake: former Substance use: current Substance use type: marijuana Other substance usage details: smoking 2x daily Lack of Transportation: No Lack of Food: Never True Current Housing: I Have Housing Concerned About Future Housing: No Difficulty Paying Gas/Electric Bills: No Difficulty Paying for Meds: No Currently Unemployed: No Education: High School Diploma/GED Difficulty w/ Childcare or Family Care: No Living arrangements: with family Occupation/Education: occupation 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 Gender identity (if verbalized by the patient): Female Spiritual care concerns: No Meds Home Medications and Allergies Home Medications Medication Instructions Recorded Confirmed Type albuterol sulfate 90 mcg/actuation 2 inh inhalation Q6H PRN shortness 02/20/22 02/16/23 Rx aerosol inhaler of breath or wheezing #8.5 grams fluticasone propionate 50 1 - 2 spray intranasal BID #16 mL 04/07/22 02/16/23 Rx mcg/actuation nasal spray,suspension (Flonase Allergy Relief) mupirocin 2 % topical ointment 1 applic topical BID #22 grams 07/16/22 02/16/23 Rx cholecalciferol (vitamin D3) 125 125 mcg PO DAILY #30 caps 11/25/22 02/16/23 Rx mcg (5,000 unit) capsule ondansetron HCl 4 mg tablet 4 mg PO Q8H PRN nausea and 01/25/23 02/16/23 Rx vomiting #30 tabs pantoprazole 40 mg tablet,delayed 40 mg PO QAM #90 tabs 02/24/23 Rx release (Protonix) propranolol 80 mg tablet 80 mg PO Q12H #60 tabs 02/24/23 Rx clindamycin HCl 300 mg capsule 300 mg PO Q8H #21 caps 03/25/23 Rx alprazolam 0.5 mg tablet 0.5 mg PO BID PRN anxiety #60 tabs 03/27/23 Rx bupropion HCl 150 mg 24 hr tablet, 150 mg PO QAM #90 tabs 03/27/23 Rx extended release zolpidem 5 mg tablet (Ambien) 5 mg PO QHS PRN insomnia #30 tabs 03/27/23 Rx benzonatate 100 mg capsule 100 mg PO TID PRN cough #30 caps 03/31/23 Rx doxycycline hyclate 100 mg capsule 100 mg PO Q12H 14 days #28 caps 04/15/23 04/15/23 Rx prednisone 5 mg tablet 5 mg PO .daily #14 tabs 04/15/23 04/15/23 Rx Allergies Allergy/AdvReac Type Severity Reaction Status Date / Time No Known Allergies Allergy Verified 02/25/23 13:20 Exam Narrative: chronic appearing sinuses
[2023-04-20 09:15] VITALS: BMI 38.2
--- NOTE | 2023-04-20 09:21 | PC.NURSE ---
Report to the Outpatient Waiting Room, entrance under the green pavilion located off [facility], at time 0600 on date 04/21/23. Planned Procedure Time: 0730. Time changes happen often and if your time is changed the preop area will call you the afternoon before. - You and your visitor will be asked to self-screen and do not enter if you have any COVID symptoms. - A mask is optional within the hospital at this time. Patients may have clear liquids (water, carbonated beverages, clear teas, apple juice) until 3 hours prior to surgery with a maximum of 20 ounces. - No food from midnight until time of surgery Take the following medications with a SIP of water the morning of surgery: BUPROPION, DOXYCYCLINE, PREDNISONE, PROPRANOLOL, INHALER & XANAX IF NEEDED DO NOT STOP ANY OF YOUR OTHER PRESCRIPTION MEDICATIONS PRIOR TO SURGERY ?EXCEPT THE FOLLOWING Medications to discontinue per physician: VITAMINS Date to take last dose: NO MORE UNTIL AFTER SURGERY Please no make-up, nail tamazight, hairspray, perfume, deodorant, or body powder the day of surgery. No jewelry (including any body piercings) or valuables the day of surgery, leave them at home. Please take a shower or bath the night before, or the morning of, surgery with an antibacterial soap. Wear comfortable, loose fitting clothing. - Jewelry must be removed prior to entering the operating room. Rings and piercings that are not removed may be cut off. - The hospital will not accept responsibility for valuables. - Please leave all valuables, including medications, at home the day of surgery. If you are going home after surgery, a licensed cart driver must drive you home. - NO public transportation without another adult if you receive anesthesia. - We recommend that an adult stay with you for 24 hours following discharge. - We also recommend that you do not drive, make important decision, drink alcoholic beverages, or take any drugs that were not prescribed by your health care provider for at least 24 hours after your discharge time. Follow any additional instructions given to you from your surgeon. If you or anyone in your household have experienced Covid symptoms in the past week, please notify your surgeon or the nurse liaison at the phone number below for possible testing. Telephone instructions given to PT - PUMA MCCLURE and asked if any additional questions and then verbalized understanding. Patient advised to call surgeon office or pre surgery nurse liaison [phone] if any additional questions.
[2023-04-21] VITALS (8 sets, daily range): BP systolic 129–153; BP diastolic 82–90; PULSE 69–93; RESP 12–23; TEMP 36.1–37.4; O2SAT 92–100
--- NOTE | 2023-04-21 06:21 | ECG_ITS ---
Measurements Intervals [place] Rate: 68 P: 53 KS: 166 QRS: 50 QRSD: 78 T: 35 QT: 401 QTc: 429 Interpretive Statements SINUS RHYTHM COMPARED TO ECG 01/29/2022 14:49:27 NO SIGNIFICANT CHANGES Electronically Signed On 04-21-2023 13:36:30 [employer]YSTER FLOATER by Sarbjit Tao M.D.
[2023-04-21] MEDS: ACETAMINOPHEN 500 MG TABLET 1000 MG PO (06:46)
--- NOTE | 2023-04-21 06:59 | WPDANESEPPF ---
Anes - Initial Pre Proc Eval Procedure: Operation Date: 04/21/23 07:30 Proposed Procedures p Image Guided Endoscopic Left Sided Frontal Sinusotomy, Left Sided Sphenoidotomy, Right Sided Maxillary Antrostomy, Right Sided Total Ethmoidectomy, Right Sided Sphenoidotomy, - Herminio Calderon MD s Possible Septoplasty - Herminio Calderon MD Date/Time: 04/21/23 06:59 Surgeon: Herminio Calderon MD Pre Op Diagnosis: recurrent chronic sinusistis Patient Data Age: 48 Gender: F Height: 1.65 m Weight: 104.35 kg Allergies Allergy/AdvReac Type Severity Reaction Status Date / Time No Known Allergies Allergy Verified 04/20/23 09:13 Home Medications Medication Instructions Recorded Confirmed Type albuterol sulfate 90 mcg/actuation 2 inh inhalation Q6H PRN shortness 02/20/22 04/20/23 Rx aerosol inhaler of breath or wheezing #8.5 grams cholecalciferol (vitamin D3) 125 125 mcg PO DAILY #30 caps 11/25/22 04/21/23 Rx mcg (5,000 unit) capsule ondansetron HCl 4 mg tablet 4 mg PO Q8H PRN nausea and 01/25/23 04/21/23 Rx vomiting #30 tabs pantoprazole 40 mg tablet,delayed 40 mg PO QAM #90 tabs 02/24/23 04/21/23 Rx release (Protonix) propranolol 80 mg tablet 80 mg PO Q12H #60 tabs 02/24/23 04/21/23 Rx alprazolam 0.5 mg tablet 0.5 mg PO BID PRN anxiety #60 tabs 03/27/23 04/21/23 Rx bupropion HCl 150 mg 24 hr tablet, 150 mg PO QAM #90 tabs 03/27/23 04/21/23 Rx extended release zolpidem 5 mg tablet (Ambien) 5 mg PO QHS PRN insomnia #30 tabs 03/27/23 04/21/23 Rx doxycycline hyclate 100 mg capsule 100 mg PO Q12H 14 days #28 caps 04/15/23 04/15/23 Rx prednisone 5 mg tablet 5 mg PO .daily #14 tabs 04/15/23 04/15/23 Rx Laboratory Tests 04/21/23 06:36 PT Pending INR Pending APTT Pending Sodium Pending Potassium Pending Chloride Pending Carbon Dioxide Pending Anion Gap Pending BUN Pending Creatinine Pending Estim Creat Clear Calc Pending Estimated GFR Pending Glucose Pending Calcium Pending Patient hx anesthesia problems: none Family hx anesthesia problems: none Results Review: All pre-operative results and documents have been reviewed as part of the pre-operative evaluation. [facility] Past Medical History Medical History Bipolar 2 disorder BMI 31.0-31.9,adult BMI 32.0-32.9,adult BMI 34.0-34.9,adult BMI 36.0-36.9,adult BMI greater than 30 Bronchitis Changing skin lesion Colon cancer screening Diffuse abdominal pain Gastroesophageal reflux disease Head trauma Helicobacter positive gastritis Hot flashes Hypertension Insomnia Irritable bowel syndrome with constipation Low vitamin D level Open comedone Right shoulder pain Schizophrenia Tremors of nervous system Surgical History Surgical History History of History of hysterectomy Family History Family History Grandparent Alcohol abuse Father Cancer Mother Diabetes mellitus Hypertension Depression Thyroid disorder Daughter Thyroid disorder Sibling GERD (gastroesophageal reflux disease) Other ADHD Allergies Anxiety Hyperlipidemia Liver disease Lung cancer Social History Social History Smoking packs per day: 1 Smoking cigarettes per day: 20.0 Years smoked: 30 Smoking pack-years: 30.00 Smoking status: Current every day smoker Tobacco type: cigarettes Second hand tobacco smoke exposure: Yes Additional smoking assessment comments: 1 ppd x 30 years Alcohol intake: never Substance use: current Substance use type: marijuana Other substance usage details: smoking 2x daily Lack of Transportation: No Lack of Food: Never True Current Housing: I Have Housing Concerned About Futur
[2023-04-21 07:04] LABS: Anion Gap 10 mmol/L (8-16); Blood Urea Nitrogen 7 mg/dL (7-17); Calcium 8.8 mg/dL (8.4-10.2); Carbon Dioxide 23 mmol/L (22-30); Chloride 105 mmol/L (98-107); Estimated CRCL calculation 102 ml/min; Estimated Glomerular Filt Rate > 60; Glucose 114 mg/dL (65-110); Potassium 3.9 mmol/L (3.4-5.0); Sodium 138 mmol/L (137-145)
[2023-04-21] MEDS: LACTATED RINGERS 1,000 ML 30 ML IV CONT ×2 (07:10→09:33)
--- NOTE | 2023-04-21 07:18 | WPDHPUPDATE1 ---
History and Physical Update Update Date/Time: 04/21/23 07:18 History and Physical has been reviewed, including an updated exam of the patient. There are NO changes in the patient's condition. Risks, benefits, and alternatives have been discussed and questions answered. Patient agrees to proceed with procedure. Other than possible septoplasty.
[2023-04-21 07:21] LABS: INR 0.9; Prothrombin Time 12.7 Seconds (11.1-14.7)
[2023-04-21 07:23] LABS: Partial Thromboplastin Time 31.2 SECONDS (22.3-36.8)
[2023-04-21] MEDS: ceFAZolin 2 GM/D5W 50 ML 2 GM/50 ML BAG IVPB (07:40)
[2023-04-21] MEDS: OXYMETAZOLINE HCL 0.05% NAS 15 ML BTL (*BKC) 1 SPRAY NASAL (07:58)
[2023-04-21] MEDS: LIDO 1%/EPINEPHRINE 1:100,000 20 ML VIAL 10 ML INFILTRATE (08:52)
[2023-04-21] MEDS: MUPIROCIN 2% OINT 22 GM TUBE 1 APPLIC TOPICAL (09:28)
[2023-04-21] MEDS: fentaNYL CITRATE INJ (*CRX) 100 MCG/2 ML VIAL 25 MCG IV PUSH ×4 (09:44→10:17)
--- NOTE | 2023-04-21 09:51 | P.OP_ITS ---
Procedure Note - Detailed Date of Procedure 04/21/23 Pre-op Diagnosis recurrent chronic sinusistis Post-op Diagnosis Same Procedure Performed image guided endoscopic right-sided middle turbinectomy maxillary antrostomy sphenoidotomy left-sided image guided endoscopic maxillary antrostomy frontal sinusotomy sphenoidotomy. Surgeon Herminio Calderon MD Anesthesia General Indications Recurrent chronic sinusitis Findings diseased polypoid tissue really polypoid right middle turbinate obstructing the maxillary outflow maxillary antrostomy as well as sphenoidotomy. Because of this right middle turbs performed. The left maxillary antrostomy had tearing it when I was suctioning necessitating revision maxillary antrostomy on the. Description of Procedure Patient identified consent verified prep. Patient brought OR. Time-out performed general anesthesia induced endotracheal tube secured airway. Patient prepped reposition procedure confirmed 2nd time-out performed image guidance initiating confirmed. Afrin-soaked pledgets for 5 minutes then removed. Left- sided middle turbinate medialized. Maxillary antrostomy was attempting to suction out there was a tear in scar tissue in the posterior region of it I read the performed a revision left-sided maxillary antrostomy to make sure was in good continuity not scarred on any further. The natural outflow tract to connect the maxillary antrostomy. No ethmoid air cells remained. Sphenoidotomy performed with sphenoid punch and Kerrison. Posterior septal artery was cauterized to ensure no bleeding postoperatively. Frontal sinusotomy performed with image guidance will all the all this is performed. Frontal sinusotomy performed with 70 degree scope cobra Hosemann. Much wider frontal sinus frontal sinus outflow following procedure. Right-sided maxillary antrostomy was viewed middle turbinate is completely obstructing the maxillary antrostomy as well as sphenoid os. Middle turbinectomy performed after the injection of 3 cc 1% lidocaine 1 1000 parts epinephrine the middle turbinate stalk. A straight through cut utilized to remove it stalk was cauterized with Bovie suction electrocautery setting of 15. Maxillary antrostomy performed hemorrhage guidance on the right side a straight through cut backbiter microdebrider. Look much better afterwards. Sphenoidotomy performed with sphenoid punch Kerrison posterior septal cauterized as well. Patient tolerated procedure well total blood loss about 35 cc. No complications. Condition given Anesthesiology. No pack was placed on the left side. Operative site was copiously irrigated with sterile normal saline. I performed all dictated portions of procedure Estimated Blood Loss 35 Drains No Packing Yes Pathology None sent Complications No immediate complications Condition Stable Disposition PACU [facility] Billing Surgery - Charge Forward: Surgery Billing
[2023-04-21] MEDS: oxyCODONE HCL (*CRX) 5 MG TAB IR PO (10:38)
== END 2023-04-21 11:31 | disposition home or self-care (01) ==
PROVIDERS: Anesthesiology; PCP Family Medicine; Visit Provider Otolaryngology
PROC: (CPT 31256; principal; 2023-04-21 07:30)
DX: J32.9 Chronic sinusitis, unspecified (principal); J33.8 Other polyp of sinus; I10 Essential (primary) hypertension; F20.9 Schizophrenia, unspecified; K21.9 Gastro-esophageal reflux disease without esophagitis; G47.00 Insomnia, unspecified; K58.1 Irritable bowel syndrome with constipation; F31.9 Bipolar disorder, unspecified; F17.210 Nicotine dependence, cigarettes, uncomplicated; F12.90 Cannabis use, unspecified, uncomplicated; Z79.51 Long term (current) use of inhaled steroids; E66.9 Obesity, unspecified; Z68.37 Body mass index [BMI] 37.0-37.9, adult
CPT/HCPCS: 31256; 31287; 31276; 61782; 36415; 80048; 85610; 85730; 93005; A9270; J0690; J1100; J1170; J2250; J2405; J2704; J3010; J7120

== ENCOUNTER 2023-07-10 00:24 | Day surgery (SDC) | payer BC, SELFPAY ==
--- NOTE | 2023-07-05 17:24 | PM.IMHP ---
H&P: HPI History of Present Illness Date/Time: 07/05/23 17:24 Chief Complaint: stress incontinence Narrative: bothersome stress incontinence. Documented on urodynamics. Desires surgical correction Review of Systems Review of Systems: All systems reviewed & are unremarkable except as noted in HPI and below PMFSH Past Medical History Medical History Bipolar 2 disorder BMI 31.0-31.9,adult BMI 32.0-32.9,adult BMI 34.0-34.9,adult BMI 35.0-35.9,adult BMI 36.0-36.9,adult BMI 37.0-37.9, adult BMI greater than 30 Bronchitis Changing skin lesion Colon cancer screening Difficult bowel movements Diffuse abdominal pain Gastroesophageal reflux disease Head trauma Helicobacter positive gastritis Hot flashes Hypertension Insomnia Irritable bowel syndrome with constipation Low vitamin D level Open comedone Right shoulder pain Schizophrenia Stress incontinence Tremors of nervous system Surgical History Surgical History History of History of hysterectomy Hx of sinus surgery Family History Family History Grandparent Alcohol abuse Father Cancer Mother Diabetes mellitus Hypertension Depression Thyroid disorder Cirrhosis Daughter Thyroid disorder Sibling No problems noted. Other ADHD Allergies Anxiety Hyperlipidemia Liver disease Lung cancer Social History Social History Smoking packs per day: 1 Smoking cigarettes per day: 20.0 Years smoked: 30 Smoking pack-years: 30.00 Smoking status: Current every day smoker Tobacco type: cigarettes Second hand tobacco smoke exposure: Yes Additional smoking assessment comments: 1 ppd x 30 years Alcohol intake: never Substance use: current Substance use type: marijuana Other substance usage details: smoking 2x daily Do You Feel Safe in your Home?: Yes Lack of Transportation: No Lack of Food: Never True Current Housing: I Have Housing Concerned About Future Housing: No Difficulty Paying Gas/Electric Bills: No Difficulty Paying for Meds: No Currently Unemployed: No Education: High School Diploma/GED Difficulty w/ Childcare or Family Care: No Living arrangements: with family Occupation/Education: occupation 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 Gender identity (if verbalized by the patient): Female Spiritual care concerns: No Meds Home Medications and Allergies Home Medications Medication Instructions Recorded Confirmed Type albuterol sulfate 90 mcg/actuation 2 inh inhalation Q6H PRN shortness 02/20/22 07/02/23 Rx aerosol inhaler of breath or wheezing #8.5 grams bupropion HCl 150 mg 24 hr tablet, 150 mg PO QAM #90 tabs 03/27/23 07/02/23 Rx extended release cholecalciferol (vitamin D3) 125 125 mcg PO DAILY #90 caps 04/25/23 07/02/23 Rx mcg (5,000 unit) capsule ondansetron HCl 4 mg tablet 4 mg PO Q8H PRN nausea and 04/25/23 07/02/23 Rx vomiting #30 tabs pantoprazole 40 mg tablet,delayed 40 mg PO QAM #90 tabs 04/25/23 07/02/23 Rx release (Protonix) propranolol 80 mg tablet 80 mg PO Q12H #60 tabs 05/27/23 07/02/23 Rx alprazolam 0.5 mg tablet 0.5 mg PO BID PRN anxiety #60 tabs 06/29/23 07/02/23 Rx zolpidem 5 mg tablet (Ambien) 5 mg PO QHS PRN insomnia #30 tabs 06/29/23 07/02/23 Rx cefdinir 300 mg capsule 300 mg PO Q12H 7 days #14 caps 07/02/23 07/02/23 Rx valacyclovir 1 gram tablet 2,000 mg PO Q12H #4 tabs 07/02/23 07/02/23 Rx (Valtrex) Allergies Allergy/AdvReac Type Severity Reaction Status Date / Time No Known Allergies Allergy Verified 07/02/23 12:52 Exam Narrative: no acute distress normal breathing urethral mobility on exam Assessment and Plan Assessment and plan (1) Stress in
[2023-07-08 12:16] VITALS: BMI 37.0
--- NOTE | 2023-07-08 12:16 | PC.NURSE ---
Report to the Outpatient Waiting Room, entrance under the green pavilion located off [facility], at time 0800 on date 07/10/23. Planned Procedure Time: 1000. Time changes happen often and if your time is changed the preop area will call you the afternoon before. - You and your visitor will be asked to self-screen and do not enter if you have any COVID symptoms. - A mask is optional within the hospital at this time. Patients may have clear liquids (water, carbonated beverages, clear teas, apple juice) until 3 hours prior to surgery with a maximum of 20 ounces. - No food from midnight until time of surgery Take the following medications with a SIP of water the morning of surgery: ALPRAZOLAM IF NEEDED, ANTIBIOTIC, BUPROPION, PROPRANOLOL DO NOT STOP ANY OF YOUR OTHER PRESCRIPTION MEDICATIONS PRIOR TO SURGERY ?EXCEPT THE FOLLOWING Medications to discontinue per physician: VITAMINS Date to take last dose: NO MORE UNTIL AFTER SURGERY Please no make-up, nail iranian, hairspray, perfume, deodorant, or body powder the day of surgery. No jewelry (including any body piercings) or valuables the day of surgery, leave them at home. Please take a shower or bath the night before, or the morning of, surgery with an antibacterial soap. Wear comfortable, loose fitting clothing. - Jewelry must be removed prior to entering the operating room. Rings and piercings that are not removed may be cut off. - The hospital will not accept responsibility for valuables. - Please leave all valuables, including medications, at home the day of surgery. If you are going home after surgery, a licensed local company tanker driver must drive you home. - NO public transportation without another adult if you receive anesthesia. - We recommend that an adult stay with you for 24 hours following discharge. - We also recommend that you do not drive, make important decision, drink alcoholic beverages, or take any drugs that were not prescribed by your health care provider for at least 24 hours after your discharge time. Follow any additional instructions given to you from your surgeon. If you or anyone in your household have experienced Covid symptoms in the past week, please notify your surgeon or the nurse liaison at the phone number below for possible testing. Telephone instructions given to PT - PUMA MCCLURE and asked if any additional questions and then verbalized understanding. Patient advised to call surgeon office or pre surgery nurse liaison [phone] if any additional questions.
--- NOTE | 2023-07-09 12:55 | WPDANESEPPF ---
Anes - Initial Pre Proc Eval Procedure: Operation Date: 07/10/23 10:00 Proposed Procedures p Urethral Sling - Dank Swift MD Date/Time: 07/09/23 12:55 Surgeon: Dank Swift MD Pre Op Diagnosis: stress incontinence Patient Data Age: 48 Gender: F Height: 1.65 m Weight: 101 kg Allergies Allergy/AdvReac Type Severity Reaction Status Date / Time No Known Allergies Allergy Verified 07/08/23 12:14 Home Medications Medication Instructions Recorded Confirmed Type albuterol sulfate 90 mcg/actuation 2 inh inhalation Q6H PRN shortness 02/20/22 07/08/23 Rx aerosol inhaler of breath or wheezing #8.5 grams bupropion HCl 150 mg 24 hr tablet, 150 mg PO QAM #90 tabs 03/27/23 07/08/23 Rx extended release cholecalciferol (vitamin D3) 125 125 mcg PO DAILY #90 caps 04/25/23 07/08/23 Rx mcg (5,000 unit) capsule ondansetron HCl 4 mg tablet 4 mg PO Q8H PRN nausea and 04/25/23 07/08/23 Rx vomiting #30 tabs pantoprazole 40 mg tablet,delayed 40 mg PO QAM #90 tabs 04/25/23 07/08/23 Rx release (Protonix) propranolol 80 mg tablet 80 mg PO Q12H #60 tabs 05/27/23 07/08/23 Rx alprazolam 0.5 mg tablet 0.5 mg PO BID PRN anxiety #60 tabs 06/29/23 07/08/23 Rx zolpidem 5 mg tablet (Ambien) 5 mg PO QHS PRN insomnia #30 tabs 06/29/23 07/08/23 Rx Patient hx anesthesia problems: none Family hx anesthesia problems: none Results Review: All pre-operative results and documents have been reviewed as part of the pre-operative evaluation. [facility] Past Medical History Medical History (Updated 07/10/23 @ 08:42 by Ramy Schulz DO) Bipolar 2 disorder Bronchitis Changing skin lesion Colon cancer screening Difficult bowel movements Diffuse abdominal pain Gastroesophageal reflux disease Head trauma Helicobacter positive gastritis Hot flashes Hypertension Insomnia Irritable bowel syndrome with constipation Low vitamin D level Open comedone Right shoulder pain Schizophrenia Stress incontinence Tremors of nervous system Surgical History Surgical History History of History of hysterectomy Hx of sinus surgery Family History Family History Grandparent Alcohol abuse Father Cancer Mother Diabetes mellitus Hypertension Depression Thyroid disorder Cirrhosis Daughter Thyroid disorder Sibling No problems noted. Other ADHD Allergies Anxiety Hyperlipidemia Liver disease Lung cancer Social History Social History Smoking packs per day: 1 Smoking cigarettes per day: 20.0 Years smoked: 30 Smoking pack-years: 30.00 Smoking status: Current every day smoker Tobacco type: cigarettes Second hand tobacco smoke exposure: Yes Additional smoking assessment comments: 1 ppd x 30 years Alcohol intake: never Substance use: current Substance use type: marijuana Other substance usage details: smoking 2x daily Do You Feel Safe in your Home?: Yes Lack of Transportation: No Lack of Food: Never True Current Housing: I Have Housing Concerned About Future Housing: No Difficulty Paying Gas/Electric Bills: No Difficulty Paying for Meds: No Currently Unemployed: No Education: High School Diploma/GED Difficulty w/ Childcare or Family Care: No Living arrangements: with family Occupation/Education: occupation 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
--- NOTE | 2023-07-10 04:37 | WPDHPUPDATE1 ---
History and Physical Update Update Date/Time: 07/10/23 04:37 History and Physical has been reviewed, including an updated exam of the patient. There are NO changes in the patient's condition. Risks, benefits, and alternatives have been discussed and questions answered. Patient agrees to proceed with procedure.
[2023-07-10] MEDS: LACTATED RINGERS 1,000 ML 30 ML IV CONT (08:30)
[2023-07-10 08:40] VITALS: BP 160/95; PULSE 85; RESP 16; TEMP 36.3; O2SAT 99
[2023-07-10 09:02] LABS: INR 0.9; Partial Thromboplastin Time 27.4 SECONDS (22.3-36.8)
[2023-07-10 09:04] LABS: Anion Gap 8 mmol/L (8-16); Blood Urea Nitrogen 14 mg/dL (7-17); Carbon Dioxide 25 mmol/L (22-30); Chloride 108 mmol/L (98-107); Estimated CRCL calculation 88 ml/min; Estimated Glomerular Filt Rate > 60; Glucose 131 mg/dL (65-110); Potassium 3.8 mmol/L (3.4-5.0); Sodium 141 mmol/L (137-145)
[2023-07-10] MEDS: FAMOTIDINE 20 MG/2 ML VIAL IV PUSH (09:05)
[2023-07-10] MEDS: ceFAZolin 2 GM/D5W 50 ML 2 GM/50 ML BAG IVPB (09:30)
[2023-07-10] MEDS: BUPIVACAINE/EPINEPHRINE 0.5% 10 ML VIAL INFILTRATE (09:56)
--- NOTE | 2023-07-10 10:01 | P.OP_ITS ---
Procedure Note - Detailed Date of Procedure 07/10/23 Pre-op Diagnosis stress incontinence Post-op Diagnosis Same Procedure Performed mid urethral sling cystoscopy Surgeon Dank Swift MD Anesthesia MAC and Local Indications This is a female with confirm stress urinary incontinence. She desires surgical correction. She understands the risks of bleeding, infection, injury to the urinary tract, vaginal mesh extrusion, urinary tract mesh erosion, obstructive voiding requiring a secondary procedure, hip and leg pain, dyspareunia, inability to improve overactive bladder symptoms. She agrees to proceed. Description of Procedure She was correctly identified. Informed consent obtained. She was brought the operating room. She was given appropriate anesthesia. She was given appropriate perioperative antibiotics. A time-out performed. I marked out the site of the inner thigh incisions. I anesthetized the skin and made those incisions. I anesthetized the anterior vaginal wall over the mid urethra. I made a 1 cm incision. I dissected out laterally taking great care not to injure the refilled vaginal wall. I passed the helical trocars. First on the left. Then on the right. I did this from the thigh incision towards the vaginal incis ion. The sling was connected to the trocars and brought out through the thigh incision. I tensioned the sling appropriately. I cut and the plastic sheaths. I then closed the incision with 2 0 Vicryl. On cystoscopy there is no tumors or surgical artifact. There was no surgical artifact in the urethra. I cut the excess sling material. Close incisions with glue. She was awakened and transferred to the PACU in stable condition. Implants Urethral sling Estimated Blood Loss 40 Drains No Packing No Pathology None sent Complications No immediate complications Condition Stable Disposition PACU
[2023-07-10 10:04] VITALS: BP 99/67; PULSE 86; RESP 16; O2SAT 100
[2023-07-10] MEDS: oxyCODONE HCL (*CRX) 5 MG TAB IR PO (10:27)
[2023-07-10 10:30] VITALS: BP 123/76; PULSE 78; RESP 20
[2023-07-10 10:45] VITALS: BP 126/80; PULSE 75; RESP 20
== END 2023-07-10 10:54 | disposition home or self-care (01) ==
PROVIDERS: Anesthesiology; PCP Family Medicine; Visit Provider Urology
PROC: (CPT 57288; principal; 2023-07-10 10:00)
DX: N39.3 Stress incontinence (female) (male) (principal); F31.81 Bipolar II disorder; K21.9 Gastro-esophageal reflux disease without esophagitis; I10 Essential (primary) hypertension; E55.9 Vitamin D deficiency, unspecified; F20.9 Schizophrenia, unspecified; F17.210 Nicotine dependence, cigarettes, uncomplicated; F12.90 Cannabis use, unspecified, uncomplicated; E66.9 Obesity, unspecified; Z68.36 Body mass index [BMI] 36.0-36.9, adult; Z79.51 Long term (current) use of inhaled steroids
CPT/HCPCS: 57288; 36415; 80048; 85610; 85730; A9270; C1771; J0690; J1100; J2250; J2405; J2704; J3010; J7030; J7120

== ENCOUNTER 2023-11-20 10:06 | Outpatient (CLI) | payer BC, SELFPAY ==
--- NOTE | ~2023-11-20 | XR_ITS ---
XR abdomen/kub 1V Ordering provider: CELI Goyal History: . HEMATURIA, REOCCURRING KIDNEY STONES . Comparison: January 27, 2023 FINDINGS: BOWEL: Nonobstructive bowel gas pattern. ORGANOMEGALY: Hepatomegaly. SIGNIFICANT PATHOLOGIC CALCIFICATIONS: None. OTHER: Degenerative changes of the spine. No free air is seen under the diaphragm. IMPRESSION: NO ACUTE ABDOMINAL FINDINGS. Reviewed, dictated and finalized at location A.
== END 2023-11-20 10:07 | disposition home or self-care (01) ==
PROVIDERS: PCP Family Medicine; Visit Provider Nurse Practitioner Family
DX: R10.9 Unspecified abdominal pain (principal)
CPT/HCPCS: 74018

== ENCOUNTER 2023-12-25 12:39 | Outpatient (CLI) | payer BC, SELFPAY ==
--- NOTE | ~2023-12-25 | CT_ITS ---
EXAMINATION: CT abdomen pelvis wo con DATE: 12/25/2023 12:57 INDICATION: Unspecified abdominal pain. Flank pain and hematuria. TECHNIQUE: Computed tomography (CT) of the abdomen and pelvis was performed without intravenous contr ast. Automated exposure control and iterative reconstruction technique were employed. The dose-length product was 978.93 mGy-cm. COMPARISON: 01/27/2023 FINDINGS: Mild emphysema. Heart size is normal. No pericardial or pleural effusion. Cholecystectomy clips in th e gallbladder fossa. Diffuse hepatic steatosis with more focal hepatic steatosis along the gallbladde r fossa. Spleen, pancreas and bilateral adrenal glands are normal. 2 mm stone at the interpolar regio n of the left kidney. No other urolithiasis in the right kidney or along the bilateral ureters. No hy dronephrosis. Bladder is normal. The uterus is not identified and has likely been surgically resected . 2.6 cm cystic lesion at the left ovary with gradient increasing dependent density suggesting a poss ible hemorrhagic cyst. Right ovary is unremarkable. Multiple phleboliths in the deep pelvis. Bowels i ncluding appendix are normal. No free intraperitoneal gas or fluid. No pathologically enlarged abdomi nal or pelvic lymphadenopathy. Mild degenerative skeletal changes in the spine and pelvis. There are also a few scattered small sclerotic bone islands in the pelvis and proximal femurs. IMPRESSION: 1. 2 mm nonobstructing left renal stone. No other urolithiasis or hydronephrosis. 2. 2.6 cm complex cystic left ovarian lesion, possibly hemorrhagic cyst. Recommend follow-up pelvic u ltrasound for further evaluation. Reviewed, dictated and finalized at location A. IMPRESSION: 1. 2 mm nonobstructing left renal stone. No other urolithiasis or hydronephrosi s. 2. 2.6 cm complex cystic left ovarian lesion, possibly hemorrhagic cyst. Recomm end follow-up pelvic ultrasound for further evaluation.
== END 2023-12-25 12:40 ==
LOC: MICIMG 12:39
PROVIDERS: PCP Urology; Visit Provider Nurse Practitioner Family
DX: R10.9 Unspecified abdominal pain (principal); R31.9 Hematuria, unspecified; M54.9 Dorsalgia, unspecified; R50.9 Fever, unspecified; N20.0 Calculus of kidney
CPT/HCPCS: 74176

== ENCOUNTER 2024-03-16 16:14 | Outpatient (CLI) | payer BC, SELFPAY ==
--- NOTE | ~2024-03-16 | US_ITS ---
EXAMINATION: US pelvic complete DATE: 03/16/2024 16:50 INDICATION: Unspecified ovarian cyst, unspecified side. TECHNIQUE: Multiple transabdominal sonographic images of the pelvis were obtained. COMPARISON: CT abdomen and pelvis 12/25/2023 FINDINGS: The uterus is absent. There is no free fluid in the pelvis. The right ovary measures 3.3 x 1.3 x 1.4 cm. The left ovary measures 3.8 x 2.6 x 2.5 cm. There is normal vascular flow in the ovaries. IMPRESSION: 1. Normal ovaries. 2. Absent uterus. Reviewed, dictated and finalized at location A. [employer] ADVISOR
== END 2024-03-16 16:15 | disposition home or self-care (01) ==
PROVIDERS: PCP Family Medicine; Visit Provider Obstetrics & Gynecology
DX: N83.209 Unspecified ovarian cyst, unspecified side (principal)
CPT/HCPCS: 76856

== ENCOUNTER 2024-05-12 00:39 | Day surgery (SDC) | payer BC, SELFPAY ==
[2024-04-21 13:21] VITALS: BMI 33.3
[2024-05-12 08:58] VITALS: BP 138/86; PULSE 74; RESP 18; TEMP 36.4; O2SAT 100
--- NOTE | 2024-05-12 09:02 | WPDANESEPPF ---
Anes - Initial Pre Proc Eval Procedure: Operation Date: 05/12/24 10:00 Proposed Procedures p Esophagogastroduodenoscopy & Colonoscopy - Slabador Tovar MD Date/Time: 05/12/24 09:02 Surgeon: Salbador Tovar MD Pre Op Diagnosis: gastritis, Hpylori as cause of disease, benign Patient Data Age: 49 Gender: F Height: 1.65 m Weight: 98.6 kg Last Vital Signs Temp 36.4 C L 05/12/24 08:58 Pulse 74 05/12/24 08:58 Resp 18 05/12/24 08:58 BP 138/86 05/12/24 08:58 Pulse Ox 100 05/12/24 08:58 O2 Del Method Room Air 05/12/24 08:58 Allergies Allergy/AdvReac Type Severity Reaction Status Date / Time No Known Allergies Allergy Verified 05/12/24 08:50 Home Medications ?Medication ?Instructions ?Recorded ?Confirmed ?Type fluticasone propionate 50 1 - 2 spray intranasal BID #16 mL 07/20/23 05/12/24 Rx mcg/actuation nasal spray,suspension (Flonase Allergy Relief) zolpidem 5 mg tablet (Ambien) 5 mg PO QHS PRN insomnia #30 tabs 09/28/23 05/12/24 Rx bupropion HCl 150 mg 24 hr tablet, 150 mg PO QAM #90 tabs 12/29/23 05/12/24 Rx extended release albuterol sulfate 90 mcg/actuation 2 inh inhalation Q6H PRN shortness 01/25/24 05/12/24 Rx aerosol inhaler of breath or wheezing #8.5 grams ondansetron HCl 4 mg tablet 4 mg PO Q8H PRN nausea and 01/25/24 05/12/24 Rx vomiting #30 tabs propranolol 80 mg tablet 80 mg PO Q12H #60 tabs 01/25/24 05/12/24 Rx alprazolam 0.5 mg tablet 0.5 mg PO BID PRN anxiety #60 tabs 04/27/24 05/12/24 Rx cholecalciferol (vitamin D3) 125 125 mcg PO DAILY #90 caps 04/27/24 05/12/24 Rx mcg (5,000 unit) capsule pantoprazole 40 mg tablet,delayed 40 mg PO QAM #90 tabs 04/27/24 05/12/24 Rx release (Protonix) fluoxetine 20 mg capsule 20 mg PO DAILY #30 caps 04/28/24 05/12/24 Rx Patient hx anesthesia problems: none Family hx anesthesia problems: none Results Review: All pre-operative results and documents have been reviewed as part of the pre-operative evaluation. [facility] Past Medical History Medical History Nausea & vomiting Marijuana smoker Adenomatous colon polyp Folliculitis Ovarian cyst Difficult bowel movements Stress incontinence Nasal crusting Nasal polyps Gastroesophageal reflux disease Hx of renal calculi Bronchitis Irritable bowel syndrome with constipation Helicobacter positive gastritis Nasal congestion Chronic sinusitis Facial pressure Facial pain Ear pressure PND (post-nasal drip) Open comedone Changing skin lesion Right shoulder pain Head trauma Colon cancer screening Schizophrenia Low vitamin D level Insomnia Diffuse abdominal pain Bipolar 2 disorder Tremors of nervous system Hot flashes Hypertension Surgical History Surgical History Hx of sinus surgery History of History of hysterectomy Family History Family History Grandparent Alcohol abuse Father Cancer Mother Diabetes mellitus Hypertension Depression Thyroid disorder Cirrhosis Daughter Thyroid disorder Sibling No problems noted. Other ADHD Allergies Anxiety Hyperlipidemia Liver disease Lung cancer Social History Social History Smoking packs per day: 1 Smoking cigarettes per day: 20.0 Years smoked: 30 Smoking pack-years: 30.00 Smoking status: Current every day smoker Tobacco type: cigarettes Second hand tobacco smoke exposure: Yes Additional smoking assessment comments: 1 ppd x 30 years Alcohol intake: never Substance use: current Substance use type: marijuana Other substance usage details: smoking 2x daily Last use: daily Do You Feel Safe in your Home?: Yes Lack of Transportation: No Lack of Food: Never True Current Housing: I Have Housing Concerned About Future Housing: No Difficulty Paying Gas/Electric Bills: No Difficulty Paying for Meds: No Currently Unemployed: No Education: High School Diploma/GED Difficulty w/ Childcare or Family Care: No Living arrangements: with family Occupation/Education: occupation 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 Informed Consent: The patient's anesthetic plan and its attendant risks and benefits were discussed with the patient/family/POA. Questions were solicited and answers provided to the satisfaction of the patient/family/POA.
--- NOTE | 2024-05-12 09:35 | P.HP_ITS ---
H&P: HPI History of Present Illness Date/Time: 05/12/24 09:35 Chief Complaint: Dyspepsia-history of colon polyps. Narrative: This patient has a history of longstanding dyspepsia, having being treated for H pylori in 2021. Erradication not confirm. She continued to have intermittent dyspepsia and epigastric discomfort. In addition there is a history of colonic polyps and is here for surveillance colonoscopy. Review of Systems Review of Systems: All systems reviewed & are unremarkable except as noted in HPI and below PMFSH Past Medical History Medical History Nausea & vomiting Marijuana smoker Adenomatous colon polyp Folliculitis Ovarian cyst Difficult bowel movements Stress incontinence Nasal crusting Nasal polyps Gastroesophageal reflux disease Hx of renal calculi Bronchitis Irritable bowel syndrome with constipation Helicobacter positive gastritis Nasal congestion Chronic sinusitis Facial pressure Facial pain Ear pressure PND (post-nasal drip) Open comedone Changing skin lesion Right shoulder pain Head trauma Colon cancer screening Schizophrenia Low vitamin D level Insomnia Diffuse abdominal pain Bipolar 2 disorder Tremors of nervous system Hot flashes Hypertension Surgical History Surgical History Hx of sinus surgery History of History of hysterectomy Family History Family History Grandparent Alcohol abuse Father Cancer Mother Diabetes mellitus Hypertension Depression Thyroid disorder Cirrhosis Daughter Thyroid disorder Sibling No problems noted. Other ADHD Allergies Anxiety Hyperlipidemia Liver disease Lung cancer Social History Social History Smoking packs per day: 1 Smoking cigarettes per day: 20.0 Years smoked: 30 Smoking pack-years: 30.00 Smoking status: Current every day smoker Tobacco type: cigarettes Second hand tobacco smoke exposure: Yes Additional smoking assessment comments: 1 ppd x 30 years Alcohol intake: never Substance use: current Substance use type: marijuana Other substance usage details: smoking 2x daily Last use: daily Do You Feel Safe in your Home?: Yes Lack of Transportation: No Lack of Food: Never True Current Housing: I Have Housing Concerned About Future Housing: No Difficulty Paying Gas/Electric Bills: No Difficulty Paying for Meds: No Currently Unemployed: No Education: High School Diploma/GED Difficulty w/ Childcare or Family Care: No Living arrangements: with family Occupation/Education: occupation 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 Gender identity (if verbalized by the patient): Female Spiritual care concerns: No Meds Home Medications and Allergies Home Medications ?Medication ?Instructions ?Recorded ?Confirmed ?Type fluticasone propionate 50 1 - 2 spray intranasal BID #16 mL 07/20/23 05/12/24 Rx mcg/actuation nasal spray,suspension (Flonase Allergy Relief) zolpidem 5 mg tablet (Ambien) 5 mg PO QHS PRN insomnia #30 tabs 09/28/23 05/12/24 Rx bupropion HCl 150 mg 24 hr tablet, 150 mg PO QAM #90 tabs 12/29/23 05/12/24 Rx extended release albuterol sulfate 90 mcg/actuation 2 inh inhalation Q6H PRN shortness 01/25/24 05/12/24 Rx aerosol inhaler of breath or wheezing #8.5 grams ondansetron HCl 4 mg tablet 4 mg PO Q8H PRN nausea and 01/25/24 05/12/24 Rx vomiting #30 tabs propranolol 80 mg tablet 80 mg PO Q12H #60 tabs 01/25/24 05/12/24 Rx alprazolam 0.5 mg tablet 0.5 mg PO BID PRN anxiety #60 tabs 04/27/24 05/12/24 Rx cholecalciferol (vitamin D3) 125 125 mcg PO DAILY #90 caps 04/27/24 05/12/24 Rx mcg (5,000 unit) capsule pantoprazole 40 mg tablet,delayed 40 mg PO QAM #90 tabs 04/27/24 05/12/24 Rx release (Protonix) fluoxetine 20 mg capsule 20 mg PO DAILY #30 caps 04/28/24 05/12/24 Rx Allergies Allergy/AdvReac Type Severity Reaction Status Date / Time No Known Allergies Allergy Verified 05/12/24 08:50 Vital Signs Vital Signs - 24 hr 05/12/24 08:58 Temperature 97.5 F L Pulse Rate 74 Respiratory Rate 18 Blood Pressure 138/86 Pulse Oximetry 100 Oxygen Delivery Room Air Exam Narrative: no acute distress normal breathing urethral mobility on exam Assessment and Plan Assessment and plan (1) Helicobacter positive gastritis: Code(s): K29.70 - Gastritis, unspecified, without bleeding; B96.81 - Helicobacter pylori [H. pylori] as the cause of diseases classified elsewhere Status: Acute Assessment and Plan: The patient is deemed a good candidate for the procedures. Consent signed. Will proceed. (2) Adenomatous colon polyp: Code(s): D12.6 - Benign neoplasm of colon, unspecified Status: Acute
--- NOTE | 2024-05-12 09:51 | SUR.OPER ---
EGD ended 946, Colonoscopy started 950
[2024-05-12 10:07] VITALS: BP 115/74; PULSE 73; RESP 20; O2SAT 97
[2024-05-12] MEDS: LACTATED RINGERS 1,000 ML 150 ML IV CONT (10:07)
[2024-05-12 10:17] VITALS: BP 125/86; PULSE 65; RESP 28; O2SAT 100
[2024-05-12 10:27] VITALS: BP 132/81; PULSE 64; RESP 24; O2SAT 100
== END 2024-05-12 10:32 | disposition home or self-care (01) ==
PROVIDERS: PCP Family Medicine; Visit Provider Internal Medicine Gastroenterology
PROC: 0DJ08ZZ Inspection of Upper Intestinal Tract, Via Natural or Artificial Opening Endoscopic (ICD-10-PCS; CPT 45378; principal; 2024-05-12 10:00)
DX: Z12.11 Encounter for screening for malignant neoplasm of colon (principal); D12.2 Benign neoplasm of ascending colon; K64.8 Other hemorrhoids; K29.50 Unspecified chronic gastritis without bleeding; K21.9 Gastro-esophageal reflux disease without esophagitis; K58.1 Irritable bowel syndrome with constipation; E55.9 Vitamin D deficiency, unspecified; G47.00 Insomnia, unspecified; I10 Essential (primary) hypertension; N39.3 Stress incontinence (female) (male); J32.9 Chronic sinusitis, unspecified; F20.9 Schizophrenia, unspecified; F31.81 Bipolar II disorder; G25.2 Other specified forms of tremor; F12.90 Cannabis use, unspecified, uncomplicated; F17.210 Nicotine dependence, cigarettes, uncomplicated; Z79.51 Long term (current) use of inhaled steroids; Z98.890 Other specified postprocedural states; Z86.0100 Personal history of colon polyps, unspecified; Z87.442 Personal history of urinary calculi; Z80.1 Family history of malignant neoplasm of trachea, bronchus and lung
CPT/HCPCS: 43239; 45385; 88305; J2003; J2704; J7120

== ENCOUNTER 2024-06-24 14:06 | Outpatient (CLI) | payer BC, SELFPAY ==
--- NOTE | ~2024-06-24 | CT_ITS ---
EXAMINATION:CT diagnostic chest wo con DATE: 06/24/2024 14:22 INDICATION: Solitary pulmonary nodule. TECHNIQUE: Computed tomography (CT) of the chest was performed without intravenous contrast. Automate d exposure control and iterative reconstruction technique were employed. The dose-length product (DLP ) was 184.61 mGy-cm. COMPARISON: CT abdomen and pelvis 12/25/2023, 01/27/23 FINDINGS: There is mild emphysema. There is a 5 mm nodule at minor fissure, stable from 01/27/23. Ther e is a 7 mm nodule at minor fissure, stable from 01/27/23. There is a 2 mm nodule in left lower lobe. There is mild atelectasis bilaterally. No pleural effusion. The heart size is normal. No pericardial effusion. There is diffuse hepatic steatosis. There are changes of cholecystectomy. There is mild tho racic spondylosis. IMPRESSION: 1. Small pulmonary nodules, likely benign. 2. Mild emphysema. Reviewed, dictated and finalized at location A. [facility]
--- OUTSIDE RECORDS SUMMARY | 2024-06-24 14:10 | XMS_ITS | Encounter Summary ---
Author Organization [facility] Address [address] [place] [address] Care Team Providers Care Docking Pilot Name Role Phone Cindy Barnes CELI Primary Care Provider [phone] Encounter Details Date Type Department Care Team (Late st Contact Info) Description 03/21/[address] [facility] [address] [place], [place] [id number] Xenia Payne MD [address] [facility] [address] [place] [address] Social History Tobacco Use Types Packs/Day Years Used Date Smoking Tobacco: Every Day Cigarettes 0.5 42 Smokeless Tobacco: Never Alcohol Use Standard Drinks/Week Comments No 0 (1 standard drink = 0.6 oz pur e alcohol) AUDIT-C Answer Date Recorded Frequency of Alcohol Consumption Never 02/03/2020 Average Number of Drinks Not on file 020 Frequency of Binge Drinking Not on file 06/2019 Comments No Sex and Gender Information Value Date Recorded Sex Assigned at Not on file Legal Sex Female 7:53 PM CDT Gender Identity Not on file Sexual Orientation Not on file COVID-19 Exposure Response Date Recorded In the last month, have you been in contact with someone who was confirmed or suspected to have Coronavirus / COVID-19? No / Unsure 03/19/2020 3:16 PM DRUM STOCK CLERK documented as of this encounter Plan of Treatment Not on file documented as of this encounter Results * PRE-SURGICAL/PRE-PROCEDURE CORONAVIRUS (COVID 19) (03/27/2020 3:09 PM DRUM STOCK CLERK) CORONAVIRUS SARS COV 2 PCR (RESP) NOT DETECTED NOT DETECTED 03/29/2020 1:26 AM DRUM STOCK CLERK [facility] Comment: A Not Detected (negative) test result for this test means that SARS- CoV-2 RNA was not present in the specimen above the limit of detection. A negative result does not rule out the possibility of COVID-19 and should not be used as the sole basis for treatment or patient management decisions. If COVID-19 is still suspected, based on exposure history together with other clinical findings, re-testing should be considered in consultation with public health authorities. Laboratory test results should always be considered in the context of clinical observations and epidemiological data in making a final diagnosis and patient management decisions. Please review the Fact Sheets and FDA authorized labeling available for health care providers and patients using the following websites: https://www.MobileWebsites.Folkstr/home/Covid-19/HCP/QuestIVD/fact- sheet.html https://www.MobileWebsites.Folkstr/home/Covid-19/Patients/ QuestIVD/fact-sheet.html This test has been authorized by the FDA under an Emergency Use Authorization (EUA) for use by authorized laboratories. Due to the current public health emergency, [facility] is receiving a high volume of samples from a wide variety of swabs and media for COVID-19 testing. In order to serve patients during this public health crisis, samples from appropriate clinical sources are being tested. Negative test results derived from specimens received in non-commercially manufactured viral collection and transport media, or in media and sample collection kits not yet authorized by FDA for COVID-19 testing should be cautiously evaluated and the patient potentially subjected to extra precautions such as additional clinical monitoring, including collection of an additional specimen. Methodology: Nucleic Acid Amplification Test (NAAT) includes RT-PCR or TMA Additional information about COVID-19 can be found at the [facility] website: www.[email or web address].Folkstr/Covid19. Test performed at [facility] [address] [place] [address] Director: RAYNE ARTIS DO,MPH FIRST TEST UNKNOWN 03/27/2020 2:40 PM DRUM STOCK CLERK [facility] EMPLOYED IN HEALTHCARE YES 03/27/2020 2:40 PM DRUM STOCK CLERK [facility] SYMPTOMATIC DEFINED BY CDC NO 03/27/2020 2:40 PM DRUM STOCK CLERK [facility] DATE OF SYMPTOM ONSET UNKNOWN 03/27/2020 3:28 PM DRUM STOCK CLERK [facility] HOSPITALIZATION STATUS NO 03/27/2020 2:40 PM DRUM STOCK CLERK [facility] PATIENT IN ICU NO 03/27/2020 2:40 PM DRUM STOCK CLERK [facility] NO 03/27/2020 2:40 PM DRUM STOCK CLERK [facility] NOT 03/27/2020 2:40 PM DRUM STOCK CLERK [facility] PATIENT'S RACE WHITE OR 03/27/2020 2:40 PM DRUM STOCK CLERK [facility] ETHNICITY NONHISPANIC 03/27/2020 2:40 PM DRUM STOCK CLERK [facility] SOURCE (QST) NASOPHARYNGEAL SWAB 03/27/2020 2:40 PM DRUM STOCK CLERK [facility] NASOPHARYNGEAL SWAB / Unknown 03/27/2020 3:09 PM DRUM STOCK CLERK us Xenia Payne MD MICROBIOLOGY - GENERAL ORDER FARZAD Final Result [facility] [address] [place] [address], [place] [phone] [facility] [address] [place] [address], [place] documented in this encounter Visit Diagnoses Diagnosis Preop testing- Primary Preoperative examination, unspecified documented in this encounter Additional Health Concerns Infection Onset Date Last Indicated Resolved Time COVID-19 Rule Out 03/27/2020 03/27/2020 03/29/2020 1:26 AM DRUM STOCK CLERK COVID-19 Rule Out 12/27/2020 12/27/2020 12/27/2020 9:59 AM CDT COVID-19 Rule Out 12/27/2020 12/27/2020 12/29/2020 1:43 AM CDT documented as of this encounter Care Teams Docking Pilot Relationship Specialty Start Date End Date Cindy Barnes FNP [address] [place] [address] PCP - General Nurse Practitioner Family 04/08/18 documented as of this encounter
--- OUTSIDE RECORDS SUMMARY | 2024-06-24 14:11 | XMS_ITS | Clinical Summary ---
Author Organization [facility] Address [address] [facility] [place] [address] Care Team Providers Care Steward/Stewardess Dining Room Name Role Phone JordanLucía moraleschelle MATT Primary Care Provider [phone] Source Comments [facility],non-owned Affiliates and Associated Physician Practices is amultiple site organization consisting of ambulatory clinics and hospital sitesin [place], [place], [place] and [place]. This disclosure is being madepursuant to the Care Everywhere program and may not contain all information available regarding this patient. Last updated 18.[facility] Allergies No known active allergies Medications * Be aware that medications may not be up to date on this document. Alwaysverify current medications with the patient. Medication Sig Dispensed Refills Start Date End Date Status risperiDONE (RISPERDAL) 1 MG tablet Take 1 mg by mouth once daily 05/11/2018 Active zolpidem (AMBIEN) 10 MG tablet Take 10 mg by mouth at bedtime 05/11/2018 Active traZODone (DESYREL) 50 MG tablet Take 1.5 tablets by mouth at bedtime 05/04/2018 Active propranolol (INDERAL) 80 MG tablet Take 80 mg by mouth 2 times daily 05/04/2018 Active buPROPion SR 12hr (WELLBUTRIN SR) 200 MG tablet Take 200 mg by mouth 2 times daily 05/11/2018 Active spironolactone (ALDACTONE) 50 MG tablet Take 50 mg by mouth once daily 06/01/2018 Active omeprazole (PRILOSEC) 20 MG capsule Take 20 mg by mouth once daily 05/27/2018 Active erythromycin (ERYDERM) 2 % solution Apply 1 drop to affected area once daily 05/10/2018 Active terbinafine (LAMISIL) 250 MG tabletIndications: Onychomycosis Take 1 tablet by mouth once daily 84 tablet 09/14/2018 Active Additional Information Patient not taking.Reported on 01/20/2019 itraconazole (ONMEL) 200 MG tabletIndications: Onychomycosis Take 1 tablet by mouth daily with food for 12 wks. 30 DS 30 tablet 2 09/20/2018 Active Additional Information Patient not taking.Reported on 01/20/2019 fluconazole (DIFLUCAN) 200 MG tabletIndications: Tinea pedis of both feet Take 1 tablet by mouth Two times a week 104 tablet 01/20/2019 Active Active Problems Problem Noted Date Diagnosed Date Other acne 06/03/2018 Tinea pedis of right foot 06/03/2018 EIC (epidermal inclusion cyst) 06/03/2018 Lipoma 06/03/2018 Dermal nevus of chest 06/03/2018 Acrochordon 06/03/2018 Hidradenitis suppurativa 2018 Family History Medical History Relation Name Comments Asthma Neg Hx CVA Neg Hx Cancer - Breast Neg Hx Cancer - Other Neg Hx Cancer - Skin, Melanoma Neg Hx Cancer - Skin, Non Melanoma Neg Hx Eczema Neg Hx Hemophilia Neg Hx Psoriasis Neg Hx Social History Tobacco Use Types Packs/Day Years Used Date Smoking Tobacco: Every Day Cigarettes 0.5 30 Smokeless Tobacco: Never Alcohol Use Standard Drinks/Week Comments No 0 (1 standard drink = 0.6 oz pur e alcohol) Sex and Gender Information Value Date Recorded Sex Assigned at Not on file Gender Identity Not on file Sexual Orientation Not on file Plan of Treatment Health Maintenance Due Date Last Done Comments COLOGUARD (AGES 45-75) - COL ON CA SCREENING 1975 COLON MONITORING 1975 COLONOSCOPY - COLON CA SCREENING 1975 CT COLONOGRAPHY - COLON CA SCREENING 1975 Colorectal Cancer Screening 1975 FIT - COLON CA SCREENING 1975 FLEX SIG - COLON CA SCREENING 1975 LIPID TESTING 1975 MAMMOGRAM 1975 HIV SCREENING 1990 HEPATITIS C SCREENING 04/15/1993 DTAP/TDAP/TD VACCINES (1 - Tdap) 1994 HEPATITIS B VACCINE (1 of 3 - 19+ 3-dose series) 1994 PAP with HPV 2005 COVID-19 VACCINE (2023-2 5 season) 2024 INFLUENZA VACCINE (#1) 2024 DEPRESSION SCREENING 05/04/2024 ZOSTER VACCINE (1 of 2) 2025 HIB VACCINE Aged Out No longer eligi ble based on patient's age to complete this topic HPV VACCINE Aged Out No longer eligi ble based on patient's age to complete this topic MENINGOCOCCAL (Group B) VACCINE Aged Out No longer eligible based on patient's age to complete this topic MENINGOCOCCAL VACCINE Aged Out No joby lori eligible based on patient's age to complete this topic Care Teams Steward/Stewardess Dining Room Relationship Specialty Start Date End Date Cindy Barnes APRN-MIRNA [address] [place] [id number] PCP - General 06/03/18
--- OUTSIDE RECORDS SUMMARY | 2024-06-24 14:11 | XMS_ITS | Continuity of Care Document ---
Author Organization [facility] Address [address] [facility] [address] [place] [address] Phone Care Team Providers Care Industrial Truck Operator Name Role Phone Hi OD, Christopher Unavailable Unavailable Procedures Procedure Date Eye Exam & Treatment Refraction Advance Directives Directive Yes / No Effective Date File Name No Information Encounters Encounter Description Practice Location Reason(s) For Visit Diagnoses Date Provider Providers Copied on Encounter [facility], [address], [place], [place], [id number], [place] tel:[phone] [facility] No Information 7-201 0 Hi OD Christopher. [address] [facility] [address] , [address], [place], [address], [place]. tel:[phone] Family History Family Member Type Diagnosis Age At Onset No Information Payers Payer name Insurance type Covered democrat ID Authoriza tion(s) Medicaid [facility] [id number] Social History Type Description Quantity Date Captured Comments Sex Female Smoking Status No Information Chief Complaint And Reason For Visit No Information Reason For Referral Reason For Referral No Information History Of Present Illness Encounter Date Complaint History Of Prese nt Illness No Information Functional Status Date Functional Assessmen t No Information Instructions Date Instruction Additional Infor mation No Information Assessments Type Assessment Date No Information Patient Care Teams Name Effective Dates (start - stop) Status Members No Information
--- OUTSIDE RECORDS SUMMARY | 2024-06-24 14:11 | XMS_ITS | Encounter Summary ---
Author Organization [facility] Address [address] [facility] [place] [address] Care Team Providers Care Fish Cake Maker Name Role Phone Cindy Barnes APRN-MIRNA Primary Care Provider [phone] Encounter Details Date Type Department Care Team (Late st Contact Info) Description 02/23/2024 Lab Requisition [facility] - DermPath Lab [address] [facility] [place] [id number] Chente Smith MD [address] [place] [address] Social History Tobacco Use Types Packs/Day Years Used Date Smoking Tobacco: Every Day Cigarettes 0.5 30 Smokeless Tobacco: Never Alcohol Use Standard Drinks/Week Comments No 0 (1 standard drink = 0.6 oz pur e alcohol) Sex and Gender Information Value Date Recorded Sex Assigned at Not on file Gender Identity Not on file Sexual Orientation Not on file documented as of this encounter Plan of Treatment Not on file documented as of this encounter Procedures Procedure Name Priority Date/Time Associated Diagnosis Comments DERMATOPATHOLOGY Routine 02/22/2024 12:0 0 AM CDT documented in this encounter Results * DERMATOPATHOLOGY (02/22/2024 12:00 AM CDT) Case Report Dermatopathology Report Case: [id number] Authorizing Provider: Chente Smith MD Collected: 02/22/2024 12:00 AM Ordering Location: [facility] Physician [facility] - Received: 02/23/2024 12:38 PM DermPath Lab Pathologist: Alba Feliciano MD Specimen: Skin, left shoulder 12:33 PM T DERMATOPATHOLOGY LABORATORY Final Diagnosis Specimen A. SKIN, left shoulder: PIGMENTED SEBORRHEIC KERATOSIS (L82.1) NOT PRESENT AT SAMPLED MARGIN 12:33 PM T DERMATOPATHOLOGY LABORATORY Clinical History Changing lesion 12:33 PM CDT DERMATOPATHOLOGY LABORATORY Gross Description Specimen A: Received is one formalin filled container labeled with the patient's name and designated left shoulder. The specimen consists of a non-oriented ellipse of skin measuring 43e96e0 mm. The epidermal surface is unremarkable. The margin is inked green. The 12 o'clock and 6 o'clock tips are submitted in cassette 1. The remainder of the ellipse is serially sectioned and submitted in cassette 2. Jar 0. 12:33 PM T DERMATOPATHOLOGY LABORATORY Microscopic Description Specimen A. SKIN, left shoulder: Sections show an acanthotic lesion composed of relatively uniform keratinocytes. There is hyperkeratosis and pseudo horn cysts. Pigment is present in the keratinocytes composing this tumor. This lesion is not present at the sampled margin of the specimen. 12:33 PM T DERMATOPATHOLOGY LABORATORY Disclaimer An external and internal positive and negative controls are appropriate for the histochemical, immunohistochemical and immunofluorescence stain(s) in this case (if any), except where stated explicitly. The performance characteristics of the stain(s) cited in this report were developed and its performance characteristic determined by the Dermatopathology Laboratory at [facility], directed by Dr. Dixon Ayers. These tests need not be, and therefore are not, approved by the [place] Food and Drug Administration. The tests are used for clinical purposes. Billing Codes Specimen Charges Stain Charges 18960 1 12:33 PM CDT DERMATOPATHOLOGY LABORATORY Embedded Images 12:33 PM CDT DERMATOPATHOLOGY LABORATORY Pathology/Cytolog y TISSUE SPECIMEN FROM SKIN / Unknown 02/22/2024 02/23/2024 12:38 PM CDT Chente Smith MD LAB - PATHOLOGY/CYTO LOGY ORDERABLES DERMATOPATHOLOGY LABORATORY [facility] - Department of Dermatology [facility] [address] [place] [address], [address] [phone] documented in this encounter Visit Diagnoses Not on filedocumented in this encounter Care Teams Fish Cake Maker Relationship Specialty Start Date End Date Cindy Barnes APRN-BIODIESEL ENGINEERING MANAGER [address] [place] [id number] PCP - General 06/03/18 documented as of this encounter
--- OUTSIDE RECORDS SUMMARY | 2024-06-24 14:11 | XMS_ITS | Continuity of Care Document ---
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 Name Role Phone Anthony Hinson MD Unavailable Unavailable Allergies, Adverse Reactions, Alerts Substance Reaction Status Criticality No Known Allergies Active No Inform ation Medications Medication Instructions Dosage Effective Dates (start - stop) Status Comments Celexa 20 mg tablet take 1 tablet by ora l route every day 20 MG - Active propranolol 60 mg tablet take 1 tablet by oral route 2 times every day 60 MG - Active Procedures Procedure Date PREV VISIT, EST, AGE 40-64 OFFICE/OUTPATIENT VISIT, EST PREV VISIT, EST, AGE 40-64 OFFICE/OUTPATIENT VISIT, EST OFFICE/OUTPATIENT VISIT, EST OFFICE/OUTPATIENT VISIT, EST OFFICE/OUTPATIENT VISIT, EST OFFICE/OUTPATIENT VISIT, EST OFFICE/OUTPATIENT VISIT, EST OFFICE/OUTPATIENT VISIT, EST OFFICE/OUTPATIENT VISIT, EST OFFICE/OUTPATIENT VISIT, EST OFFICE/OUTPATIENT VISIT, EST OFFICE/OUTPATIENT VISIT, EST OFFICE/OUTPATIENT VISIT, EST OFFICE/OUTPATIENT VISIT, EST PREV VISIT, NEW, AGE 18-39 Advance Directives Directive Yes / No Effective Date File Name No Information Encounters Encounter Description Practice Location Reason(s) For Visit Diagnoses Date Provider Providers Copied on Encounter [facility], [address] [place] [address], [id number], [place] tel:[phone] [facility] No Information 8 rSavan Cruz. [address], [place], [place], [address] , [place]. [phone] PREV VISIT, EST, AGE 40-64 [facility], [address], [place], [place], [address], [place] [phone] [facility] Physical (chief complaint) Encntr for general adult medical exam w/o abnormal findings 8 Sravan Cruz. [address], [place], [place], [address] , [place]. [phone] Referring Provider: Demetria Douglas [address], [place], [place], [address]. tel:[phone] OFFICE/OUTPA TIENT VISIT, EST [facility], [address], [place], [place], [address], [place] [phone] [facility] insomnia1 (chief complaint) anxiety1 (chief complaint) headache1 (chief complaint) InsomniaGeneralized anxiety disorderHeadache 7 Sravan Cruz. [address], [place], [place], [address] , [place]. [phone] Referring Provider: Demetria Douglas [address], [place], [place], [address]. tel:[phone] PREV VISIT, EST, AGE 40-64 [facility], [address], [place], [place], [address], [place] tel:[phone] [facility] PHysical (chief complaint) Encounter for general adult medical exam w abnormal findingsGeneralized anxiety disorderChronic sinusitis, unspecifiedInsomnia 6 Sravan Cruz. [address], [place], [place], [address] , [place]. [phone] Referring Provider: Demetria Douglas [address], [place], [place], [address]. tel:[phone] OFFICE/OUTPA TIENT VISIT, [facility], [address], [place], [place], [address], [place] tel:[phone] [facility] insomnia1 (chief complaint) anxiety1 (chief complaint) tremor1 (chief complaint) facial acne1 (chief complaint) TremorGeneralized anxiety disorderOther insomniaRash 6 Sravan Cruz. [address], [place], [place], [address] , [place]. [phone] Referring Provider: Demetria Douglas [address], [place], [place], [address]. tel:[phone] OFFICE/OUTPA TIENT VISIT, [facility], [address], [place], [place], [address], [place] tel:[phone] [facility] anxiety1 (chief complaint) dizziness1 (chief complaint) tremor (chief complaint) TremorGeneralized anxiety disorderHeadacheDiz ziness 6 Sravan Cruz. [address], [place], [place], [address] , [place]. [phone] Referring Provider: Demetria Douglas [address], [place], [place], [address]. tel:[phone] OFFICE/OUTPA TIENT VISIT, [facility], [address], [place], [place], [address], [place] [phone] [facility] dizziness1 (chief complaint) tremor (chief complaint) tremor1 (chief complaint) anxiety1 (chief complaint) VertigoTremorGenera lized anxiety disorder 6 Sravan Cruz. [address], [place], [place], [address] , [place]. [phone] Referring Provider: Demetria Douglas [address], [place], [place], [address]. tel:[phone] OFFICE/OUTPA TIENT VISIT, [facility], [address], [place], [place], [address], [place] tel:[phone] [facility] vertigo1 (chief complaint) insomnia1 (chief complaint) tremor1 (chief complaint) skin infection (chief complaint) VertigoGeneralized anxiety disorderTremorCellu litis of abdominal wall 6 Sravan Cruz. [address], [place], [place], [address] , [place]. [phone] Referring Provider: Demetria Douglas [address], [place], [place], [address]. tel:[phone] OFFICE/OUTPA TIENT VISIT, [facility], [address], [place], [place], [address], [place] tel:[phone] [facility] anxiety1 (chief complaint) insmonia1 (chief complaint) tremor1 (chief complaint) Generalized anxiety disorderOther insomniaTremor 6 Sravan Rosa [address], [place], [place], [address] , [place]. [phone] Referring Provider: Demetria Douglas [address], [place], [place], [address]. tel:[phone] OFFICE/OUTPA TIENT VISIT, [facility], [address], [place], [place], [address], [place] tel:[phone] [facility] abscess (chief complaint) breast nodule1 (chief complaint) Cellulitis of groinFibrocystic disease of left breast 6 Sravan Rosa [address], [place], [place], [address] , [place]. [phone] Referring Provider: Demetria Douglas [address], [place], [place], [address]. tel:[phone] OFFICE/OUTPA TIENT VISIT, [facility], [address], [place], [place], [address], [place] tel:[phone] [facility] breast nodule1 (chief complaint) anxiety1 (chief complaint) nodule (chief complaint) insomnia1 (chief complaint) LipomaUnspecified lump in breastGeneralized anxiety disorderOther insomnia 0201 6 Sravan Cruz. [address], [place], [place], [address] , [place]. tel:[phone] Referring Provider: Demetria Douglas [address], [place], [place], [address]. tel:[phone] OFFICE/OUTPA TIENT VISIT, [facility], [address], [place], [place], [address], [place] tel:[phone] [facility] anxiety1 (chief complaint) weight (chief complaint) fatigue1 (chief complaint) headache (chief complaint) Generalized anxiety disorderObesitySlee p apneaInconclusive mammogram 6 Sravan Rosa [address], [place], [place], [address] , [place]. tel:[phone] Referring Provider: Demetria Douglas [address], [place], [place], [address]. tel:[phone] OFFICE/OUTPA TIENT VISIT, [facility], [address], [place], [place], [address], [place] tel:[phone] [facility] anxiety1 (chief complaint) headache1 (chief complaint) weight (chief complaint) Encounter for oth screening for malignant neoplasm of breastGeneralized anxiety disorderObesityHead ache 6 Sravan Rosa [address], [place], [place], [address] , [place]. tel:[phone] Referring Provider: Demetria Douglas [address], [place], [place], [address]. tel:[phone] OFFICE/OUTPA TIENT VISIT, [facility], [address], [place], [place], [address], [place] tel:[phone] [facility] obesity (chief complaint) anxiety1 (chief complaint) insomnia1 (chief complaint) sinus (chief complaint) Acute sinusitisOther insomniaGeneralized anxiety disorderOther obesity 5 6 Sravan Rosa [address], [place], [place], [address] , [place]. tel:[phone] Referring Provider: Anthony Hinson, [address], [place], [place], [address]. tel:[phone] OFFICE/OUTPA TIENT VISIT, [facility], [address], [place], [place], [address], [place] tel:[phone] [facility] insomnia1 (chief complaint) anxiety1 (chief complaint) obesity1 (chief complaint) Body mass index (BMI) 34.0-34.9, adultGeneralized anxiety disorderOther insomnia 5 Sravan Cruz. [address], [place], [place], [address] , [place]. tel:[phone] Referring Provider: Anthony Hinson, [address], [place], [place], [address]. tel:[phone] OFFICE/OUTPA TIENT VISIT, [facility], [address], [place], [place], [address], [place] tel:[phone] [facility] glucose1 (chief complaint) vitamin d (chief complaint) HLP1 (chief complaint) anxiety1 (chief complaint) insomnia1 (chief complaint) Generalized anxiety disorderHyperglycem iaVitamin D deficiency, unspecifiedMixed hyperlipidemia 5 Sravan Cruz. [address], [place], [place], [address] , [place]. tel:[phone] Referring Provider: Demetria Douglas [address], [place], [place], [address]. tel:[phone] PREV VISIT, NEW, AGE 18-39 [facility], [address], [place], [place], [address], [place] tel:[phone] [facility] PHysical (chief complaint) Encntr for general adult medical exam w/o abnormal findings 5 Sravan Cruz. [address], [place], [place], [address] , [place]. tel:[phone] Family History Family Member Type Diagnosis Age At Onset Brother Problem (finding) Alive and well Mother Problem (finding) parkinson, Father Problem (finding) lung CA Mother Problem (finding) Diabetes mellitus type 2 Payers Payer name Insurance type Covered republican ID Authoriza tion(s) No Information Social History Type Description Quantity Date Captured Comments Sex Female Smoking Status No Information Chief Complaint And Reason For Visit No Information Plan Of Treatment Date Type Action Status Goal Special diet education compl eted Referral Ordered: Otolaryngology (related to Chronic sinusitis, unspecified) ordered Referral Ordered: Referrals: Otolaryngology. Evaluate and treat ordered Referral Ordered: Monroe Wilkins (related to Rash) ordered Referral Referred To: Monroe Wilkins [address] [place], [id number] Ordered: Referrals: Monroe Wilkins. Evaluate and treat ordered Referral Ordered: DOPPLER ECHO EXAM, HEART ordered Referral Ordered: MRI BRAIN W/O DYE ordered Referral Ordered: Neurology (related to Tremor) ordered Referral Ordered: Referrals: Neurology. Evaluate and treat ordered Referral Ordered: US SOFT TISSUE CHEST ordered Referral Ordered: MAMMOGRAM, BOTH BREASTS ordered Referral Ordered: MAMMOGRAM, SCREENING ordered Referral Ordered: Pulmonology (related to Vitamin D deficiency, unspecified) ordered Referral Ordered: Referrals: Pulmonology. Evaluate and treat ordered History Of Present Illness Encounter Date Complaint History Of Prese nt Illness Physical Pt needs annual physical. Pt has chronic sinus headache Pt is seeing ENt and she supposes to do sinus surgery soon pt has frontal sinus headache Pt has history of HLP pt is not on any diet. Pt has tremor both arms all the time. pt denies any numbness. Pt states that propranolol did help. Pt c/o palpable left breast nodule for several years. pt c/o painful around the cyst Pt denies any warmth or swelling or nipple discharge. pt has chronic anxiety and depression and insomnia Pt wants to get back on meds. Pt denies any suicidal or homicidal thought insomnia1 Pt has insomnia. Pt needs ambien refilled. pt states that ambien 5 mg is not working anymore. Pt states that her brain does not shut off at night anxiety1 Pt has chronic a nxiety and depression. Pt takes celexa and xanax and doing ok Pt denies any suicidal or homicidal thought headache1 Pt has some head ache behind right eye since the contusion. Pt denies any vision loss. Pt denies any eye pain. Pt has been taking tylenol and ibuprofen but not helping Pt notices throbbing headache every day. PHysical Pt needs annual physical. Pt has chornic anxiety and depression. Pt takes celexa and xanax and doing ok. pT has esstentiall tremor and she takes propranolol and doing well. Pt has chronic dizziness and she is seeing neurology with normal MRI. Pt has insomnia and she takes ambien and doing ok Pt recently tripped and fell down stairs and she has contusion right orbital area. Pt also had contusion left knee Pt states that she has orbital and knee pain Ultram from ER not working .Pt denies any other complaints facial acne1 Pt notices a bum py right side cheek lesion for two years. Pt notices getting bigger. Pt denies any drainage or pain or itching insomnia1 Pt has insomnia Pt denie any trouble with breathing or snore at night Pt is noncompliant with sleep study. Pt states that vistaril does not help anxiety1 Pt has chronic a nxiety and depression. Pt takes celexa and xanax. Pt denies any suicidal or homicidal thought. Pt doing ok tremor1 Pt has resting t remor and also chronic migraine headache. Pt just seen neurology and she will have MRi of brain done soon. Pt states that propranolol current dose does not work anymore. anxiety1 Pt has chronic a nxeity and depression. Pt takes celexa and xanax and doing ok. Pt denies any suicidal or homicidal thought dizziness1 Pt feels dizzy w hen she stands up and when she feels very anxiouis.. Pt has vertigo symptoms. pt denies any hearing loss or ear pain Pt also staes that she has headache about twice per week for several months Pt feels photophobia with nausea with headache. Pt denies any chest pain or palpitation. Pt denies any preor syncope tremor Associated sympt oms include tremors. Pertinent negatives include rash. Additional information: Pt has resting tremor and propranolol is helping about 50%. Pt has not heard from neurology. dizziness1 Pt has intermitt ently poor balance for seveal months .Pt denies any orthostatis. PT feels vertigo and feels sometimes she will pass out. Pt has some vague heaache after the episodes sometimes pt denies any head injury tremor tremor1 Pt has hand and leg resting tremor for 2-3 years .Pt failed requip. pt does not drink alcohol anxiety1 Pt has chronic a nxiety and depression. Pt takes celexa and xanax and doing ok. PT denies any suicidal or homcidialt hought skin infection Pt has recurrent superficial skin infectoin, especiall around low abdomen inferior to umblicus. Pt notices induration with pain. Pt denies any drainage .Pt has current infection for one week. Pt denies any fever tremor1 PT c/o diffuse t ermor all over arm and leg. Pt states the tremor is worse all the time. Pt statse that she has family history of parkinson disease. Pt denies any headache. Pt states that requp did not help at all insomnia1 Pt states that s he has insomnia. Pt states that vistaril no longer works for her. Pt states that she could not fall asleep for hours. Pt is noncompliant with sleep study vertigo1 Pt c/o suddent o nset of dizziness, vertigo feeling since last week. Pt staes that it occurs intermittently and sometimes she notices numnbess and tingling feeling around both arm and hand along with the dizziness. Pt feels that she is about the faint. Pt states that it occured 3 times during last week. Pt denies any relationship to activity.. Pt had negative head CT last year in the ER due to vertigo. Pt denies any orthostasis. Pt denies any chest pain or palpitation during the episodes. ,Pt denies any SOB tremor1 Pt c/o tremor ar ound hand and leg for years. Pt does not drink alcohol Pt feels that her leg is restless at night for long time. Pt notices some tingling both hand last week but resolved now insmonia1 pt has insomnia. Pt takes vistaril qhs and doing ok. Pt is noncompliant with sleep study Pt snores and feels fatigue anxiety1 Pt has chronic a nxiety and depression. Pt takes celexa and xanax and doing ok. pt denies any sucidal or homicidal thought Pt denies any crying spells. pt has been having a lot of stress at home. breast nodule1 Pt had left mian st nodule biospy. Pt denies any breast pain or any fever abscess Pt c/o left groi n pimple since last Thursday and then developed to abscess with pain and pus draiange. Pt c/o pain. Pt denies any fever, chill. NO headache insomnia1 Pt has insomnia. Pt takes vistaril qhs and doing ok. Pt is noncompilant with sleep study nodule Pt notices nonte nder noulde behind right shoulder for two months, no change in size. NO pain. anxiety1 Pt has chronic a nxiety and depression. Pt takes celexa and xanax and doing ok. Pt denies any suiciadl or homicidal thought breast nodule1 Pt c/o left mian st nodule and pain for several years, but worse lately. Pt has abnormal ultraosund and she will undergo biospy in one week. Pt also just had manual breast exam done by client sales and service officer recently and was also told left breast does not feel normal. 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 Pt states that she does not want sleep study anymore sine she does not want to wear the mask even if she does have sleep apnea. weight Pt has been taki ng phentermine. Pt denies any chest pain or headache Pt has not been able to lose much weight but she feels more energy with it and she wants to continue on it for now. Pt has not been diet and exercising last month. anxiety1 Pt has chronic a nxziety and depression. Pt has been having more stress lately due to personal situation. Pt is taking celexa and xanax Pt denies any cyring spells. Pt denies any feeling of hopelessness headache Pertinent negati ves include memory loss or vomiting. Additional information: Pt has not had any headache since taking celexa at night and taking phentemrine in the morning, instead of together in AM. anxiety1 Pt has chronic a nxiety and depression. Pt has been going through some stress lately. Her grand daughter was born premature with respiratory failure. Pt has been having some situational anxiety and depression lately. Pt denies any suicidal or homicdial thought headache1 Pt has mild head ache when she takes celexa and phentermine together. Pt denies any head injury. Pt states that her headache usually resolve after about one hour after taking celexa and phentermine weight Pt states that d ue to recent stress, she has not been able to diet and exercise along with phentermine. Pt has not lost any weight during last month. Pt is still on phentermine. Pt states that she really wants to continue on phentermine. obesity Associated sympt oms include anxiety. Pertinent negatives include abdominal pain, cold intolerance, constipation, depression, fatigue, hair loss, headache, hirsutism or vision changes. Additional information: PT has been taking phentermine Pt denies any chest pain or headache. Pt feels less appetite and more energy. Pt lost small amount of weighht. anxiety1 Pt has chronic a nxiety and dperession Pt takes celexa and xanax Pt denies any suicidal or homcidial thought .PT denies any crying spells insomnia1 Pt states that i nsomnia better with vistaril qhs.pt missed her sleep study. sinus Pt c/o sinus con gestion, right ear pain, productive coughing for one week. Pt failed OTC meds. PT denies any fever Dec-28-2015 obesity1 pt has difficult y losing weight. Pt is obese Pt is doing zunba and also only eat one meal per day. Pt is frustate about lack of weight los anxiety1 Pt has chronic a nxiety and depression. Pt denies any suicidal or homicidal thought. Pt doign ok with celexa and axnax. Pt denies any crying spells. insomnia1 Pt has insomnia Pt states that vistail did not work. Pt sometimes stop breathing at night. Pt has difficulty falling alseep anxiety1 Pt has chronic a nxiety and depression. Pt states that celexa and xanax is helping above symptoms. P denies any feeling of hopelessness Pt denies any crying spells. HLP1 Pt has elevated TG and TC. pt does not eat very healthy. vitamin d Pt has low vitam in D. glucose1 Pt has mildly hi gh glucose Pt denies any polyuria, polydipsia insomnia1 Pt has chronic i nsomnia. Pt uanble to fall asleep. Pt states that she does not know if she snore at night or not. Pt feels very fatigue in the morning . Pt states that she feels sometimes she stop breathing at night PHysical Pt needs annual physical. Pt has chronic anxiety and depression. Pt takes lexapro and xanax. Pt used to see Dr. Aguilar but she does not like him. Pt states that she has boils recurrently for several years Pt deneis any active boils now. Pt denies any fever, chill. Pt denies any other complaints Instructions Date Instruction Additional Infor gavin Special diet education Related t o Body mass index (BMI) 37.0-37.9, adult Prescribed Activity and Exercise Education Related to Dietary Surveillance and Counseling Prescribed Diet Educ ation/Lifestyle Education Regarding Diet Related to Dietary Surveillance and Counseling Prescribed Activity and Exercise Education Related to Dietary Surveillance and Counseling Prescribed Diet Educ ation/Lifestyle Education Regarding Diet Related to Dietary Surveillance and Counseling Prescribed Diet Educ ation/Lifestyle Education Regarding Diet Related to Dietary Surveillance and Counseling Prescribed Activity and Exercise Education Related to Dietary Surveillance and Counseling Prescribed Activity and Exercise Education Related to Dietary Surveillance and Counseling Prescribed Diet Educ ation/Lifestyle Education Regarding Diet Related to Dietary Surveillance and Counseling Prescribed Activity and Exercise Education Related to Dietary Surveillance and Counseling Prescribed Diet Educ ation/Lifestyle Education Regarding Diet Related to Dietary Surveillance and Counseling Prescribed Activity and Exercise Education Related to Dietary Surveillance and Counseling Prescribed Diet Educ ation/Lifestyle Education Regarding Diet Related to Dietary Surveillance and Counseling Prescribed Diet Educ ation/Lifestyle Education Regarding Diet Related to Dietary Surveillance and Counseling Prescribed Activity and Exercise Education Related to Dietary Surveillance and Counseling Prescribed Activity and Exercise Education Related to Dietary Surveillance and Counseling Prescribed Diet Educ ation/Lifestyle Education Regarding Diet Related to Dietary Surveillance and Counseling Prescribed Activity and Exercise Education Related to Dietary Surveillance and Counseling Prescribed Diet Educ ation/Lifestyle Education Regarding Diet Related to Dietary Surveillance and Counseling Prescribed Activity and Exercise Education Related to Dietary Surveillance and Counseling Prescribed Diet Educ ation/Lifestyle Education Regarding Diet Related to Dietary Surveillance and Counseling Prescribed Diet Educ ation/Lifestyle Education Regarding Diet Related to Dietary Surveillance and Counseling Prescribed Activity and Exercise Education Related to Dietary Surveillance and Counseling Prescribed Diet Educ ation/Lifestyle Education Regarding Diet Related to Dietary Surveillance and Counseling Prescribed Activity and Exercise Education Related to Dietary Surveillance and Counseling Assessments Type Assessment Date No Information
--- OUTSIDE RECORDS SUMMARY | 2024-06-24 14:11 | XMS_ITS | Patient Health Summary ---
Author Organization [facility] Address [address] [place] [address] Care Team Providers Care Vinyl Top Installer Name Role Phone Cindy Barnes SHAKA Primary Care Provider [phone] Note from [facility],non-owned Affiliates and Associated Physician Practices is amultiple site organization consisting of ambulatory clinics and hospital sitesin [place], [place], [place] and [place]. This disclosure is being madepursuant to the Care Everywhere program and may not contain all information available regarding this patient. Last updated 18.[facility] Allergies No known active allergies Medications * Be aware that medications may not be up to date on this document. Alwaysverify current medications with the patient. * risperiDONE (RISPERDAL) 1 MG tablet(Started 05/11/2018) Take 1 mg by mouth once daily * zolpidem (AMBIEN) 10 MG tablet(Started 05/11/2018) Take 10 mg by mouth at bedtime * traZODone (DESYREL) 50 MG tablet(Started 05/04/2018) Take 1.5 tablets by mouth at bedtime * propranolol (INDERAL) 80 MG tablet(Started 05/04/2018) Take 80 mg by mouth 2 times daily * buPROPion SR 12hr (WELLBUTRIN SR) 200 MG tablet(Started 05/11/2018) Take 200 mg by mouth 2 times daily * spironolactone (ALDACTONE) 50 MG tablet(Started 06/01/2018) Take 50 mg by mouth once daily * omeprazole (PRILOSEC) 20 MG capsule(Started 05/27/2018) Take 20 mg by mouth once daily * erythromycin (ERYDERM) 2 % solution(Started 05/10/2018) Apply 1 drop to affected area once daily * terbinafine (LAMISIL) 250 MG tablet(Started 09/14/2018) Take 1 tablet by mouth once daily * itraconazole (ONMEL) 200 MG tablet(Started 09/20/2018) Take 1 tablet by mouth daily with food for 12 wks. 30 DS 2 refills remaining * fluconazole (DIFLUCAN) 200 MG tablet(Started 01/20/2019) Take 1 tablet by mouth Two times a week Active Problems Problem Noted Date Diagnosed Date Other acne 06/03/2018 Tinea pedis of right foot 06/03/2018 EIC (epidermal inclusion cyst) 06/03/2018 Lipoma 06/03/2018 Dermal nevus of chest 06/03/2018 Acrochordon 06/03/2018 Hidradenitis suppurativa 2018 Social History Tobacco Use Types Packs/Day Years Used Date Smoking Tobacco: Every Day Cigarettes 0.5 30 Smokeless Tobacco: Never Alcohol Use Standard Drinks/Week Comments No 0 (1 standard drink = 0.6 oz pur e alcohol) Sex and Gender Information Value Date Recorded Sex Assigned at Not on file Gender Identity Not on file Sexual Orientation Not on file Procedures * DERMATOPATHOLOGY(Performed 02/22/2024) * LAB RESULTS ORDER(Performed 08/30/2018) * LAB RESULTS ORDER(Performed 08/30/2018) * LAB RESULTS ORDER(Performed 08/30/2018) * MO TANGNTL BX SKIN SINGLE LES(Performed 06/03/2018) Performed for Neoplasm of uncertain behavior of skin * DERMATOPATHOLOGY(Performed 06/03/2018) Performed for Tinea pedis of right foot, Neoplasm of uncertain behavior of skin Results * DERMATOPATHOLOGY (02/22/2024 12:00 AM CDT) Only the most recent of2 resultswithin the time period is included. Case Report Dermatopathology Report Case: [id number] Authorizing Provider: Chente Smith MD Collected: 02/22/2024 12:00 AM Ordering Location: [facility] - Received: 02/23/2024 12:38 PM DermPath Lab Pathologist: Alba Feliciano MD Specimen: Skin, left shoulder 12:33 PM CDT DERMATOPATHOLOGY LABORATORY Final Diagnosis Specimen A. SKIN, left shoulder: PIGMENTED SEBORRHEIC KERATOSIS (L82.1) NOT PRESENT AT SAMPLED MARGIN 12:33 PM T DERMATOPATHOLOGY LABORATORY Clinical History Changing lesion 12:33 PM T DERMATOPATHOLOGY LABORATORY Gross Description Specimen A: Received is one formalin filled container labeled with the patient's name and designated left shoulder. The specimen consists of a non-oriented ellipse of skin measuring [id number] mm. The epidermal surface is unremarkable. The [...] characteristic determined by the Dermatopathology Laboratory at [facility], directed by Dr. Dixon Ayers. These tests need not be, and therefore are not, approved by the [place] Food and Drug Administration. The tests are used for clinical purposes. Billing Codes Specimen Charges Stain Charges 47044 1 12:33 PM CDT DERMATOPATHOLOGY LABORATORY Embedded Images 12:33 PM CDT DERMATOPATHOLOGY LABORATORY Pathology/Cytolog y TISSUE SPECIMEN FROM SKIN / Unknown 02/22/2024 02/23/2024 12:38 PM CDT Chente Smith MD LAB - PATHOLOGY/CYTO LOGY ORDERABLES DERMATOPATHOLOGY LABORATORY [facility] - Department of Dermatology [facility] [address] [place] [address], [address] [phone] * LAB RESULTS ORDER (08/30/2018 11:12 AM CDT) Only the most recent of3 resultswithin the time period is included. Narrative 08/30/2018 11:12 AM CDT Ordered by an unspecified provider. Scanned Document LAB - THERAPEUTIC DR HAND MONITORING ORDERABLES Care Teams Vinyl Top Installer Relationship Specialty Start Date End Date Cindy Barnes APRN-BELL CAPTAIN [address] [place] [id number] PCP - General 06/03/18
--- OUTSIDE RECORDS SUMMARY | 2024-06-24 14:11 | XMS_ITS | Referral Summary ---
Author Organization [facility] Address [address] [place] [phone] Care Team Providers Care Linen Room Supervisor Name Role Phone Cindy Barnes NP Primary Care Provider Allergies No known active allergies Medications ondansetron (ZOFRAN) 4 mg tablet Take by mouth every 8 (eight) hours as needed 04/03/[address] (PROTONIX) 40 mg EC tablet 06/02/2020 Active ziprasidone (GEODON) 20 mg capsule TAKE 1 CAPSULE BY MOUTH NIGHTLY AT BEDTIME 03/06/2020 Active propranoloL (INDERAL) 80 mg tabletIndicatio ns:Essential tremor Take 1 tablet (80 mg total) by mouth 2 (two) times a day 60 tablet 3 06/08/2020 Active Active Problems Problem Noted Date Diagnosed Date Essential tremor 06/08/2020 Social History Tobacco Use Types Packs/Day Years Used Date Smoking Tobacco: Every Day Smokeless Tobacco: Current Alcohol Use Standard Drinks/Week Comments Not Currently 0 (1 standard drink = 0.6 oz pur e alcohol) Personal Safety Answer Date Recorded Getting School Help Needed Not on file 07/18 Comments Unknown Sex and Gender Information Value Date Recorded Sex Assigned at Not on file Legal Sex Female 10:09 AM SNOWBOARD INSTRUCTOR Gender Identity Not on file Sexual Orientation Not on file Last Filed Vital Signs Vital Sign Reading Time Taken Comments Blood Pressure 159/95 06/08/2020 1:06 PM SNOWBOARD INSTRUCTOR Pulse 89 06/08/2020 1:06 PM SNOWBOARD INSTRUCTOR Temperature - - Respiratory Rate - - Oxygen Saturation - - Inhaled Oxygen Concentration - - Weight 98.2 kg (216 lb 6.4 oz) 06/08/2020 1:06 P M SNOWBOARD INSTRUCTOR Height 167.6 cm (5' 6 ) 06/08/2020 1:06 PM SNOWBOARD INSTRUCTOR Body Mass Index 34.93 06/08/2020 1:06 PM SNOWBOARD INSTRUCTOR Plan of Treatment Not on file Insurance [facility] Care Teams Linen Room Supervisor Relationship Specialty Start Date End Date Cindy Barnes NP [address] [place] [id number] PCP - General Nurse Practitioner 04/06/20
--- OUTSIDE RECORDS SUMMARY | 2024-06-24 14:11 | XMS_ITS | Clinical Summary ---
Author Organization [facility] Address [address] [place] [phone] Care Team Providers Care Outdoor Fitness Trainer Name Role Phone Cindy Barnes NP Primary Care Provider [phone] Allergies No known active allergies Medications ondansetron [...] Noted Date Diagnosed Date Essential tremor 06/08/2020 Surgical History Surgery Date Site/Laterality Comments NASAL RECONSTRUCTION KIDNEY SURGERY HYSTERECTOMY Medical History Medical History Date Comments Hypertension Cataracts, both eyes Bipolar 1 disorder (HCC) Family History Medical History Relation Name Comments Cancer Father Diabetes Mother Hypertension Mother Parkinsonism Mother Relation Name Status Comments Father Mother Social History Tobacco Use Types Packs/Day Years [...] on file Legal Sex Female 10:09 AM LAUNCH LEADER Gender Identity Not on file Sexual Orientation Not on file Obstetrics History Last Filed Vital Signs Vital Sign Reading Time Taken Comments Blood Pressure 159/95 06/08/2020 1:06 PM LAUNCH LEADER Pulse 89 06/08/2020 1:06 PM LAUNCH LEADER Temperature - - Respiratory Rate - - Oxygen Saturation - - Inhaled Oxygen Concentration - - Weight 98.2 kg (216 lb 6.4 oz) 06/08/2020 1:06 P M LAUNCH LEADER Height 167.6 cm (5' 6 ) 06/08/2020 1:06 PM LAUNCH LEADER Body Mass Index 34.93 06/08/2020 1:06 PM LAUNCH LEADER Plan of Treatment Not on file Insurance [facility] Care Teams Outdoor Fitness Trainer Relationship Specialty Start Date End Date Cindy Barnes NP [address] [place] [id number] PCP - General Nurse Practitioner 04/06/20
--- OUTSIDE RECORDS SUMMARY | 2024-06-24 14:11 | XMS_ITS | Clinical Summary ---
Author Organization [facility] Address [address] [place] [address] Care Team Providers Care Medical Scheduler Name Role Phone Cindy Barnes TRAFFIC CHIEF Primary Care Provider [phone] Allergies No known active allergies Medications hydrOXYzine 50 MG tablet Take 50 mg by mouth 2 (two) times daily as needed. 07/24/2020 Active terbinafine 250 MG tabletIndication s:Tinea pedis of right foot Take 1 tablet (250 mg total) by mouth daily. 30 tablet 2 09/10/2020 Active pantoprazole EC 40 MG tabletIndication s:Gastroesophage al reflux disease, unspecified whether esophagitis present Take 1 tablet (40 mg total) by mouth daily. 90 tablet 1 01/24/2021 Active Phentermine HCl 37.5 MG CapIndications:C lass 1 obesity due to excess calories with serious comorbidity and body mass index (BMI) of 32.0 to 32.9 in adult Take 37.5 mg by mouth every morning. 30 capsule 2 01/24/2021 Active cloNIDine 0.3 MG tablet Take 0.3 mg by mouth nightly at bedtime. at bedtime. 02/07/2021 Active buPROPion SR 100 MG 12 hr tablet Take 100 mg by mouth 2 (two) times daily. 02/07/2021 Active ondansetron 4 MG tabletIndication s:Nausea Take 1 tablet (4 mg total) by mouth every 8 (eight) hours as needed. FOR NAUSEA 20 tablet 03/15/2021 Active HYDROcodone-acet aminophen 5-325 MG tabletIndication s:Acute Pain < 7 Day Supply Take 1-2 tablets by mouth every 6 (six) hours as needed for Pain (severe pain). Indications: Acute Pain < 7 Day Supply 30 tablet 04/12/2021 Active PROPRANOLOL 80 MG tabletIndication s:Tremor, essential Take 1 tablet by mouth twice daily 90 tablet 04/23/2021 Active VITAMIN D2, ERGOCALCIFEROL, 32941 UNITS capsuleIndicatio ns:Vitamin D deficiency Take 1 capsule by mouth once a week 4 capsule 04/23/2021 Active Active Problems Problem Noted Date Diagnosed Date Chronic bilateral low back pain without sciatica 03/15/2021 Hip pain 03/15/2021 Gastroesophageal reflux dise ase, unspecified whether esophagitis present 08/09/2020 Overactive bladder 06/12/2020 Status post laparoscopic cholecystectomy 020 Wrist pain, acute, right 02/06/2020 Chronic right shoulder pain 02/06/2020 Right hand pain 02/06/2020 Hand injury, right, subsequent encounter 020 Gall stones 12/06/2018 RUQ abdominal pain 12/06/2018 Flank pain 10/19/2018 Nausea 10/19/2018 Kidney stones 10/19/2018 Other microscopic hematuria 10/19/2018 Other proteinuria 10/19/2018 Lipoma 06/03/2018 Other acne 06/03/2018 EIC (epidermal inclusion cyst) 06/03/2018 Tinea pedis of right foot 06/03/2018 Dermal nevus of chest 06/03/2018 Acrochordon 06/03/2018 Hidradenitis suppurativa 2018 Left sided sciatica 2018 Anxiety 2018 Gastroesophageal reflux dise ase, esophagitis presence not specified 2018 Breast nodule 01/25/2018 Insomnia 12/25/2017 Tremor, essential 12/25/2017 Bipolar disorder with depression ([facility]) 11/20/2017 Colon polyps 11/20/2017 Class 1 obesity due to exces s calories with serious comorbidity and body mass index (BMI) of 32.0 to 32.9 in adult 11/20/2017 Vitamin D deficiency 11/20/2017 Generalized anxiety disorder 04/30/2015 Resolved Problems Problem Noted Date Diagnosed Date Resolved Date Encounter for lipid screenin g for cardiovascular disease 08/09/2020 08/13/2020 Resolved condition, follow-up 2018 01/13/2020 Immunizations Name Administration Dates Next Due Tdap (Generic) 11/20/2017 Family History Medical History Relation Comments Cancer Father Diabetes Mother Hypertension Mother Relation Status Comments Father Mother Social History Tobacco Use Types Packs/Day Years Used Date Smoking Tobacco: Every Day Cigarettes 0.5 42 Smokeless Tobacco: Never Tobacco Cessation:Ready to Q uit: Yes; Counseling Given: Yes Comments:provider to cousel Alcohol Use Standard Drinks/Week Comments No 0 (1 standard drink = 0.6 oz pur e alcohol) AUDIT-C Answer Date Recorded Frequency of Alcohol Consumption Never 02/03/2020 Average Number of Drinks Not on file 020 Frequency of Binge Drinking Not on file 06/2019 PHQ-2 Answer Date Recorded PHQ-2 Score - If the patient scores above 3, please move on to questions 3-9 5 08/07/2020 Comments No Sex and Gender Information Value Date Recorded Sex Assigned at Not on file Legal Sex Female 7:53 PM CDT Gender Identity Not on file Sexual Orientation Not on file Last Filed Vital Signs Vital Sign Reading Time Taken Comments Blood Pressure 132/97 03/15/2021 9:28 AM END FINDER TWISTING DEPARTMENT Pulse 99 03/15/2021 9:28 AM END FINDER TWISTING DEPARTMENT Temperature 36.7 C (98.1 F) 03/15/2021 9:28 AM END FINDER TWISTING DEPARTMENT Respiratory Rate 16 03/15/2021 9:28 AM END FINDER TWISTING DEPARTMENT Oxygen Saturation 98% 03/15/2021 9:28 AM END FINDER TWISTING DEPARTMENT Inhaled Oxygen Concentration - - Weight 88.9 kg (196 lb) 03/15/2021 9:28 AM END FINDER TWISTING DEPARTMENT Height 167.6 cm (5' 6 ) 03/15/2021 9:28 AM END FINDER TWISTING DEPARTMENT Body Mass Index 31.64 03/15/2021 9:28 AM END FINDER TWISTING DEPARTMENT Plan of Treatment Health Maintenance Due Date Last Done Comments Colorectal Cancer Screening Colonoscopy (10 Years) 1975 Annual Physical 1978 Pneumococcal Vaccine: Pediat rics (0 to 5 Years) and At-Risk Patients (6 to 64 Years) (1 of 2 - PCV) 1981 Hepatitis C 1993 Hepatitis B Vaccines (1 of 3 - 19+ 3-dose series) 1994 Mammogram Screening 10/11/2020 10/11/2018 COVID-19 Vaccine (2 - 2023-2 5 season) 2024 10/11/2020 Influenza Adult (#1) 2024 DTaP, Tdap and Td Vaccines ( 2 - Td or Tdap) 11/21/2027 11/20/2017 Meningococcal B Vaccine Aged Out No l onger eligible based on patient's age to complete this topic Meningococcal Vaccine Aged Out No joby lori eligible based on patient's age to complete this topic RSV Immunizations Under 20 Months Aged Out No longer eligible based on patient's age to complete this topic Procedures Procedure Name Priority Date/Time Associated Diagnosis Comments MAMMOGRAM GENERIC (SCAN ORDER) Routine 10/11/2018 from Last 3 Months or Most Recently Relevant to Health Maintenance Results * MAMMOGRAM (10/11/2018) Anatomical Region Laterality Modality Other us Documents Scanned SCANNING Edited Result - Final from Last 3 Months or Most Recently Relevant to Health Maintenance Insurance Care Teams Medical Scheduler Relationship Specialty Start Date End Date Cindy Barnes FNP [address] [place] [address] PCP - General Nurse Practitioner Family 04/08/18
--- OUTSIDE RECORDS SUMMARY | 2024-06-24 14:11 | XMS_ITS | Data Portability ---
Author Organization [facility] Address [address] [place] [phone] Assessment No assessment recorded. Plan of Treatment Reminders Order Date Submit Date Provider Last Modified By Organization Details Last Modified Time Details Appointments None recorded. Lab urinalysi s, dipstick 2015 016 [email or web address] In-Office Order, Internal Use Only DO Not Attach Compendium DO Not Attach Compendium, Do Not Delete/merge, [id number] 6 18:47:24 culture, urine 2015 016 [email or web address] [facility], [address] [place] [address], [address], [place], [address], 6 09:59:06 Referral urologist referral 2015 016 [email or web address] Not available 6 11:10:17 Procedures None recorded. Surgeries None recorded. Imaging None recorded. Medication Orders Myrbetriq 50 mg tablet,ex tended release 2015 016 [email or web address] Not available 6 18:47:24 oxybutyni n chloride 5 mg tablet 2015 016 [email or web address] Not available 6 18:47:25 Vesicare 10 mg tablet 2015 016 [email or web address] Not available 6 18:47:25 Patient TargetsNo targets recorded. Patient InstructionsNo instructions recorded. Reason for Referral Urologist Referral for Bl[place] er muscle dysfunction - overactive Referring Physician: Christopher Delaney, [facility], Encounter Date: 08/13/2015 Results Created Date Observation Date Name Description Value Unit Range Abnormal Flag Note LastModifiedBy Organization Detail LastModifiedTime 08/13/19 16 08/13/2015 urina lysis , dipst ick Leukocytes Trace Not Available In-Offi ce Order Internal Use Only DO Not Attach Compendium DO Not Attach Compendium, Do Not Delete/merge, 08/13/2015 17:44:45 08/13/19 16 08/13/2015 urina lysis , dipst ick Nitrite negati ve Not Available In-Office Order Internal Use Only DO Not Attach Compendium DO Not Attach Compendium, Do Not Delete/merge, 08/13/2015 17:44:45 08/13/19 16 08/13/2015 urina lysis , dipst ick Urobilinogen .2 Not Available In-Of fice Order Internal Use Only DO Not Attach Compendium DO Not Attach Compendium, Do Not Delete/merge, 08/13/2015 17:44:45 08/13/19 16 08/13/2015 urina lysis , dipst ick Protein Negati ve Not Available In-Office Order Internal Use Only DO Not Attach Compendium DO Not Attach Compendium, Do Not Delete/merge, 08/13/2015 17:44:45 08/13/19 16 08/13/2015 urina lysis , dipst ick pH 5.5 Not Available In-Office Order Internal Use Only DO Not Attach Compendium DO Not Attach Compendium, Do Not Delete/merge, 08/13/2015 17:44:45 08/13/19 16 08/13/2015 urina lysis , dipst ick Blood Small Not Available In-Office Order Internal Use Only DO Not Attach Compendium DO Not Attach Compendium, Do Not Delete/merge, 08/13/2015 17:44:45 08/13/19 16 08/13/2015 urina lysis , dipst ick Specific [place] 1.010 Not Available In-Off ice Order Internal Use Only DO Not Attach Compendium DO Not Attach Compendium, Do Not Delete/merge, 08/13/2015 17:44:45 08/13/19 16 08/13/2015 urina lysis , dipst ick Ketone Negati ve Not Available In-Office Order Internal Use Only DO Not Attach Compendium DO Not Attach Compendium, Do Not Delete/merge, [id number] 08/13/2015 17:44:45 08/13/19 16 08/13/2015 urina lysis , dipst ick Bilirubin Negati ve Not Available In-Office Order Internal Use Only DO Not Attach Compendium DO Not Attach Compendium, Do Not Delete/merge, [id number] 08/13/2015 17:44:45 08/13/19 16 08/13/2015 urina lysis , dipst ick Glucose Negati ve Not Available In-Office Order Internal Use Only DO Not Attach Compendium DO Not Attach Compendium, Do Not Delete/merge, [id number] 08/13/2015 17:44:45 08/13/19 16 08/13/2015 urina lysis , dipst ick Appearance Clear Not Available In-Offi ce Order Internal Use Only DO Not Attach Compendium DO Not Attach Compendium, Do Not Delete/merge, [id number] 08/13/2015 17:44:45 08/13/19 16 08/13/2015 urina lysis , dipst ick Color Yellow Not Available In-Office Order Internal Use Only DO Not Attach Compendium DO Not Attach Compendium, Do Not Delete/merge, [id number] 08/13/2015 17:44:45 Result Notes None recorded. Problems Name Problem SNOMED Code Status Onset Date Resolution Date Notes Provider Name and Address Organization Details Recorded Time Bladder muscle dysfunction - overactive Active Christopher rodriguez, [facility] 6 18:47:23 Acute urinary tract infection 590815386 Active Christopher rodriguez, [facility] 6 18:47:23 Problem Notes None recorded. Procedures Surgical History Date Name Laterality Status Provider Name and Address Organization Details Recorded Time 08/07/19 16 Most Recent Mammogram completed LUZ ELENA Mojica SIDao 08/13/2015 17:36:00 08/03/19 Hysterectomy completed LUZ ELENA Mojica 08/13/2015 17:37:54 05/04/19 Date of Last Pap Smear completed LUZ ELENA Mojica SIDao 08/13/2015 17:35:08 05/04/19 Anesth kidney/ureter surg completed LUZ ELENA Mojica SI 08/13/2015 17:37:54 03/08/19 97 Caesarean Section completed Ally Hughes MA [facility] 08/13/2015 17:38:42 03/11/19 95 Caesarean Section completed Ally Hughes MA [facility] 08/13/2015 17:38:34 12/15/18 93 Caesarean Section completed Ally Hughes MA [facility] 08/13/2015 17:38:20 Imaging Results None recorded. Procedure Notes None recorded. Medical Equipment None Reported. Allergies No known drug allergies Medications Name Sig Start Date Stop Date Status Note LastModified by Organization Details LastModified Time azithromycin 250 mg tablet active Not Available Not Availabl e Not Available hydroxyzine pamoate 50 mg capsule active Not Available Not Available Not Available alprazolam 0.5 mg tablet active Not Available Not Available No t Available citalopram 20 mg tablet active Not Available Not Available No t Available Vitamin D2 1,250 mcg (50,000 unit) capsule active Not Available Not Available Not Available oxybutynin chloride 5 mg tablet Take 1 tablet 3 times a day by oral route. 016 active Not Available Not Available Not Avai lable fluticasone propionate 50 mcg/actuation nasal spray,suspensi on active Not Available Not Available Not Available Vesicare 10 mg tablet Take 1 tablet every day by oral route. 016 active Not Available Not Available Not Avai lable Myrbetriq 50 mg tablet,extende d release Take 1 tablet every day by oral route. 016 active Not Available Not Available Not Avai lable Vitals Date Recorded Body weight Body height Body mass index (BMI) Systolic blood pressure Diastolic blood pressure Provider Name and Address Organization Details Last Updated DateTime 08/13/2015 90141.06 637 g 165.1 cm 33.4 kg/m2 132 mm[Hg] 96 mm[Hg] Ally Hughes MA [facility] 6 17:39:13 Social History Question Answer Notes LastModified by Organizat ion Details LastModified Time Tobacco Smoking Status Current Every Day Smoker Ally Hughes MA null, [facility] 08/13/2015 17:43:56 Do You Have An [place] Directive? No Information not available 08/13/2015 What Is Your Level Of Alcohol Consumption? Occasional Information not available 08/13/2015 Is Blood Transfusion Acceptable In An Emergency? Yes Information not available 08/13/2015 How Much Tobacco Do You Chew? None Information not available 08/13/2015 Are You Currently Employed? Yes Information not available 08/13/2015 What Type Of Diet Are You Following? REGULAR Information not available 08/13/2015 Which Illicit Or Recreational Drugs Have You Used? 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 With Others Information not available 08/13/2015 How Many Children Do You Have? 5 Information not available 08/13/2015 Performs Monthly Self-breast Exam? No Information no t available 08/13/2015 Do You Use Protection During Sex? No Information not available 08/13/2015 What Is Your Relationship Status? Information not available 08/13/2015 Seat Belts Used Routinely Yes Information not available 08/13/2015 Are You Sexually Active? Yes Information not available 08/13/2015 At What Age Did You Start Smoking Tobacco? 13 Information not available 08/13/2015 How Much Tobacco Do You Smoke? 1 PPD Information not available 08/13/2015 General Stress Level High Information not available 08/13/2015 Do You Use Sunscreen Routinely? No Information not available 08/13/2015 How Many Years Have You Smoked Tobacco? 27 Information not available 08/13/2015 Sex: Unknown Functional Status Question Answer Note LastModified by Organization D etails LastModified Time What is your exercise level? Moderate Information not available 08/13/2015 Mental Status None recorded. Family History Relationship Description Onset Age of this Age Resolved Age Notes LastModified by Organization Details LastModified Time Mother Parkinson's disease diabet ic, depres nic, hypert ension [email or web address] Not available 08/13/2015 18:47:29 Father Malignant tumor of lung 50 [email or web address] Not available 08/12 18:47:29 Medical History Condition Response Coronary Artery Disease N Kidney Cyst N Blood Diseases N Hyperthyroidism N Blood disorders N Blood Transfusion N MRSA N Emphysema N Depression Y COPD N Blood Clots N Pneumonia N Premature N Peripheral Arterial Disease N Edema N TIA N Headaches/Migraines N Anxiety Disorder Y Obesity N Polyps N Infertility N Acid Reflux (GERD) N Hematuria N Stroke N Neck Injury N Polio N Hospital Admission other than N Neurologic Disorder N Other Sleep Disorders N Rheumatoid Arthritis N Fibromyalgia N Abdominal Aortic Aneurysm Repair N Kidney Disease N Heart Conditions N Heart Disease/Heart Problems N Hospitalizations N Brain Tumors N Acne Y Skin Problems N Eating Disorder N Meningitis N Constipation N Tuberculosis N Cerebral Palsy N Myocardial Infarction N Asthma N Substance Abuse N Peripheral Vascular Disease N Vertigo N Sleep Disorder N Cirrhosis N Pulmonary Embolism N Chicken Pox N Hematologic Disease N Flomax Use Past or Present N Anxiety/Depression Y Thyroid Disease N Colon Cancer N Lung Disease N Glaucoma N Developmental or Behavioral Disorders N Bipolar N Pacemaker N Diverticulitis/Diverticulosis N Orthopedic Problems N Anesthesia Complications N Orthotics N Head Injury/Concussion N Congenital Anomalies N [place] Bite N Chronic Kidney Disease N Endometriosis N Liver Disease N Schizophrenia N Dialysis N Speech Delay N Chronic Obstructive Pulmonary Disease N Parkinson's Disease N Thyroid Problems N GI Problems N Developmental Delay N Anemia N Multiple Sclerosis N Immune System Disorder N Colon Polyps N Heart Attack (VA) N Diabetes N Cardiomyopathy N Blood Transfusions N Heart Problems/Murmur N Eye Trauma N Congestive Heart Failure (CHF) N Valvular Heart Disease N Hyperlipidemia N Double Vision N Abuse/Domestic Violence N Hepatitis B N Lupus N Epilepsy/Seizures N Reflux/GERD N Aneurysm N Heart Disease N Bronchitis N Pre-Eclampsia N Hypertension N Heart Failure N Other N Gout N High Blood Pressure N Atrial Fibrillation N Kidney Stones N Head Trauma/Injury N Congenital Heart Disease N Spine Problems N Gastrointestinal Disease N Lung Mass N Sinusitis N Obstructive Sleep Apnea N Muscle, Joint, or Bone Problems N Autoimmune disease N Vision or Eye Problems N Arthritis N Blood Clot N Cancer N Seasonal allergies N Leg or Foot Ulcers N Raynaud's Disease N Aortic Aneurysm N Arrhythmia N Headaches N Heart Problems N [place] N Ear or Hearing Problems N Hyperparathyroidism N Migraines N Artificial Joints N Kidney or Bladder Problems Y NSAID Use N Encephalitis N PTSD N Ulcers N Prostate Hypertrophy N Bleeding Disorder N AIDS/HIV N Urinary Tract Infection N Back Problems N Allergies N Atrial Flutter N GERD/Reflux N Hepatitis N Autism Spectrum Disorder (ASD) N Breast Cancer N Hernia N Hypothyroidism N Breast Problem Y Genitourinary Disease N Deep Vein Thrombosis N Varicose Veins N Cystic Fibrosis N Hearing Loss N Developmental Problems N Carotid Disease N Vitamin D Deficiency N ADHD N Bladder or Kidney Problems N High Cholesterol N [place] N Valvular Abnormalities N Psychiatric/Mental Health Condition N Organ Transplant N Foot Deformity N Allergies/Hayfever N Dyslipidemia N Hyponatremia N Diabetic Eye Disease N Osteoporosis/Osteopenia N Back Pain N Proteinuria N Mental Illness N Neurological Problems N Ovarian Cancer N Bedwetting N Seizures/Epilepsy N Kidney Failure N Ocular trauma N Diverticulitis N Dementia N Sleep Apnea N Mental Problems N Warfarin Management N Osteoporosis N Gynecological History Statement/Question Response Abnormal Pap N STIs/STDs N HPV Vaccine N Most Recent Mammogram 08/07/2015 Age at Menarche 13 Current Control Method Hysterectom y Age at First Child 15 Sexually Active? Y Menses Monthly N Date of Last Pap Smear 05/04/2000 Sexual Problems? Y LMP Approximate Desired Control Method None Obstetrics History GPAL:G 4 P 2 2 0 5 Type Value Multiple Births 1 Full Term 2 Induced 0 Spontaneous 0 Premature 2 Living 5 Ectopics 0 Total 4 Past Encounters Encounter ID Performer Location Encounter Start Date Encounter Closed Date Diagnosis/Indication Diagnosis SNOMED-CT Code Diagnosis ICD10 Code Diagnosis Note [id number] Christopher Delaney [place] ([facility]) [address] [place] [address] 08/13/2015 15:33:44 08/13/2015 19:02:35 Bladder muscle dysfunction - overactive 060285916 N32.81 Acute urin ricardo tract infection 577686221 N39.0 Health Concerns Section Related Observation LastModified by Organization Detai ls LastModified Time None Recorded Concern Status LastModified by Organization Details LastModified Time None Recorded [place] Directives Directive N: Payers Encounter Date Sequence Insurance Name Policy Number Policy Delgadillo Covered Member ID Delgadillo Member ID Guarantor Name 08/13/2015 1 [facility] (MEDICAID HMO) [id number] Jose Rafael Barnes [id number] Jose Rafael Barnes Notes Date Note Type Note Provider Name and Address Organization Details Recorded Time 08/13/2015 text/html Generic HPI TemplateReported bypatient.Notes:40yo WF s/p hysterectomy x14 years presents with urge incontinence. She states she has urgency to urinate but is unable to when she reaches the bathroom most of the time. Sometimes she is able to urinate without difficulty. She also complains of intermittent pelvic pain that is worse on the right side. She denies dysuria, hematuria, constipation, diarrhea, hematochezia, nausea, vomiting. She had a mammogram last week and says she had abnormal results bilaterally. She has a follow-up appointment scheduled for tomorrow and admits feeling anxious. She score an 18/30 on the EDPS and says she would like to follow up with her pcp. Christopher rodriguez, MA - [facility] 08/13/2015 19:01:03 OBGyn Episode Ob Episode Information Episode Created Date Number of Fetuses Patient Bloodtype Patient rh Status Prepregnancy Weight lbs Domestic Partner Domestic Partner Phone Father Name [employer]ustainable Systems Analyst Status 08/15/19 16 1 CLOSED Fetus Data First Name Last Name Admitted to NICU Weight (g) Sex Living Outcome Pediatric Complications Fetus ID Race Codes Race Delivery Type 3628.73 6 M Full Term [id number] Gopi Calculation Initial Gopi Date Initial Exam Date Initial Exam Provider Initial Ultrasound Date Last Menstrual Period Date Ultra Sound Weeks Gestation 0 Eighteen To Twenty Week Gopi Update Ultra Sound Date Fundal Height At Umbil Quickening Date Ultra Sound Latest Weeks Gestation Final Gopi Confirmed By Final Gopi Confirmed Date Final Gopi Date Ultra Sound Latest Days Gestation 0 0 Menstrual History Last Menstrual Date Menses Monthly On Bcp Conception Prior Menses Frequency Hcg Plus Date Menarche Onset Age Delivery Information Delivery Date Delivery Type Labor Anesthesia Weeks Gestation Incision Type Labor Labor Length Hrs Delivered By Post Complications Tubal Sterilization Discharge Date Comments 7 38 0 Discharge Information Feeding Method Contraceptive Method Maternal HG B and HCT Levels Ob Episode Information Episode Created Date Number of Fetuses Patient Bloodtype Patient rh Status Prepregnancy Weight lbs Domestic Partner Domestic Partner Phone Father Name Sustainable Systems Analyst Status 08/15/19 16 1 CLOSED Fetus Data First Name Last Name Admitted to NICU Weight (g) Sex Living Outcome Pediatric Complications Fetus ID Race Codes Race Delivery Type 3572.03 7 F Full Term [id number] Gopi Calculation Initial Gopi Date Initial Exam Date Initial Exam Provider Initial Ultrasound Date Last Menstrual Period Date Ultra Sound Weeks Gestation 0 Eighteen To Twenty Week Gopi Update Ultra Sound Date Fundal Height At Umbil Quickening Date Ultra Sound Latest Weeks Gestation Final Gopi Confirmed By Final Gopi Confirmed Date Final Gopi Date Ultra Sound Latest Days Gestation 0 0 Menstrual History Last Menstrual Date Menses Monthly On Bcp Conception Prior Menses Frequency Hcg Plus Date Menarche Onset Age Delivery Information Delivery Date Delivery Type Labor Anesthesia Weeks Gestation Incision Type Labor Labor Length Hrs Delivered By Post Complications Tubal Sterilization Discharge Date Comments 3 37 16 Discharge Information Feeding Method Contraceptive Method Maternal HG B and HCT Levels Ob Episode Information Episode Created Date Number of Fetuses Patient Bloodtype Patient rh Status Prepregnancy Weight lbs Domestic Partner Domestic Partner Phone Father Name Sustainable Systems Analyst Status 08/15/19 16 1 CLOSED Fetus Data First Name Last Name Admitted to NICU Weight (g) Sex Living Outcome Pediatric Complications Fetus ID Race Codes Race Delivery Type 4394.17 25 M Full Term [id number] Vaginal Gopi Calculation Initial Gopi Date Initial Exam Date Initial Exam Provider Initial Ultrasound Date Last Menstrual Period Date Ultra Sound Weeks Gestation 0 Eighteen To Twenty Week Gopi Update Ultra Sound Date Fundal Height At Umbil Quickening Date Ultra Sound Latest Weeks Gestation Final Gopi Confirmed By Final Gopi Confirmed Date Final Gopi Date Ultra Sound Latest Days Gestation 0 0 Menstrual History Last Menstrual Date Menses Monthly On Bcp Conception Prior Menses Frequency Hcg Plus Date Menarche Onset Age Delivery Information Delivery Date Delivery Type Labor Anesthesia Weeks Gestation Incision Type Labor Labor Length Hrs Delivered By Post Complications Tubal Sterilization Discharge Date Comments 1 39 false 22 Discharge Information Feeding Method Contraceptive Method Maternal HG B and HCT Levels Ob Episode Information Episode Created Date Number of Fetuses Patient Bloodtype Patient rh Status Prepregnancy Weight lbs Domestic Partner Domestic Partner Phone Father Name Sustainable Systems Analyst Status 08/15/19 16 2 CLOSED Fetus Data First Name Last Name Admitted to NICU Weight (g) Sex Living Outcome Pediatric Complications Fetus ID Race Codes Race Delivery Type 2353.00 85 M Prematur e 00466 2693.20 25 M Prematur e 61080 Gopi Calculation Initial Gopi Date Initial Exam Date Initial Exam Provider Initial Ultrasound Date Last Menstrual Period Date Ultra Sound Weeks Gestation 0 Eighteen To Twenty Week Gopi Update Ultra Sound Date Fundal Height At Umbil Quickening Date Ultra Sound Latest Weeks Gestation Final Gopi Confirmed By Final Gopi Confirmed Date Final Gopi Date Ultra Sound Latest Days Gestation 0 0 Menstrual History Last Menstrual Date Menses Monthly On Bcp Conception Prior Menses Frequency Hcg Plus Date Menarche Onset Age Delivery Information Delivery Date Delivery Type Labor Anesthesia Weeks Gestation Incision Type Labor Labor Length Hrs Delivered By Post Complications Tubal Sterilization Discharge Date Comments 5 36 9 Discharge Information Feeding Method Contraceptive Method Maternal HG B and HCT Levels
--- OUTSIDE RECORDS SUMMARY | 2024-06-24 14:11 | XMS_ITS | Referral Summary ---
Author Organization [facility] Address [address] [place] [address] Care Team Providers Care Compliance Field Technician Name Role Phone Cameron Cindychelle MATT Primary Care Provider [phone] Source Comments [facility],non-owned Affiliates and Associated Physician Practices is amultiple site organization consisting of ambulatory clinics and hospital sitesin [place], [place], [place] and [place]. This disclosure is being madepursuant to the Care Everywhere program and may not contain all information available regarding this patient. Last updated 18.[facility] Allergies No known active allergies Medications * [...] Orientation Not on file Plan of Treatment Not on file Care Teams Compliance Field Technician Relationship Specialty Start Date End Date Cindy Barnes APRN-MIRNA [address] [place] [address] PCP - General 06/03/18
== END 2024-06-24 14:07 | disposition home or self-care (01) ==
LOC: ANHIMG 14:07
PROVIDERS: PCP Family Medicine; Visit Provider Physician Assistant Medical
DX: R91.1 Solitary pulmonary nodule (principal)
CPT/HCPCS: 71250

== ENCOUNTER 2024-06-30 07:39 | Outpatient (CLI) | payer BC, SELFPAY | END 2024-06-30 07:40 | disposition home or self-care (01) | PROVIDERS: PCP Family Medicine; Visit Provider Nurse Practitioner Family | DX: R11.2 Nausea with vomiting, unspecified (principal) | CPT/HCPCS: 78264; A9541 ==

== ENCOUNTER 2024-10-15 00:35 | Emergency (ER) | payer BC, SELFPAY ==
--- NOTE | ~2024-10-15 | XR_ITS ---
XR ankle RT min 3V, XR foot RT min 3V 10/15/2024 01:20 Indication: Status post fall downstairs. Right ankle and foot pain. Procedure: 3 views right ankle 3 views right foot Comparison: No prior studies for comparison. Findings: Ankle mortise intact. There is mild soft tissue swelling of the midfoot. There are foreign bodies overlying the second proximal phalanx and third metatarsal, likely along the plantar surface. Lisfranc joint intact. No acute fracture identified. Impression: 1: No acute fracture. 2: Possible foreign bodies versus posterior debris along the plantar soft soft tissues overlying the foot. Reviewed, dictated and finalized at location B. Impression: 1: No acute fracture. 2: Possible foreign bodies versus posterior debris along the plantar soft soft tissues overlying the foot. Impression: 1: No acute fracture. 2: Possible foreign bodies versus posterior debris along the plantar soft soft tissues overlying the foot.
--- OUTSIDE RECORDS SUMMARY | 2024-10-15 00:38 | XMS_ITS | Data Portability ---
Author Organization [facility] Address [address] [place] [id number] Assessment No assessment recorded. Plan of Treatment Reminders Order Date Submit Date Provider Last Modified By Organization Details Last Modified Time Details Appointments None recorded. Lab urinalysi s, dipstick 2015 016 [email or web address] In-Office Order, Internal Use Only DO Not Attach Compendium DO Not Attach Compendium, Do Not Delete/merge, [id number] 18:47:24 culture, urine 2015 016 [email or web address] [facility], [address] [place] [address], [address], [place], [address], 6 09:59:06 Referral urologist referral 2015 016 [...] dysfunction - overactive Referring Physician: Christopher Delaney, PULPING MACHINE OPERATOR, Encounter Date: 08/13/2015 Results Created Date Observation [...] 08/13/2015 urina lysis , dipst ick Specific [place] 1.010 Not Available In-Off ice Order Internal Use Only DO Not Attach Compendium DO Not Attach Compendium, Do Not Delete/merge, 08/13/2015 17:44:45 08/13/19 16 08/13/2015 urina lysis , dipst ick Ketone Negati ve Not Available In-Office Order Internal Use Only DO Not Attach Compendium DO Not Attach Compendium, Do Not Delete/merge, [id number] 08/13/2015 17:44:45 08/13/19 16 08/13/2015 urina lysis , dipst ick Bilirubin Negati ve Not Available In-Office Order Internal Use Only DO Not Attach Compendium DO Not Attach Compendium, Do Not Delete/merge, [id number] 08/13/2015 17:44:45 08/13/19 16 08/13/2015 urina lysis , dipst ick Glucose Negati ve Not Available In-Office Order Internal Use Only DO Not Attach Compendium DO Not Attach Compendium, Do Not Delete/merge, [id number] 08/13/2015 17:44:45 08/13/19 16 08/13/2015 urina lysis , dipst ick Appearance Clear Not Available In-Offi ce Order Internal Use Only DO Not Attach Compendium DO Not Attach Compendium, Do Not Delete/merge, [id number] 08/13/2015 17:44:45 08/13/19 16 08/13/2015 urina lysis , dipst ick Color Yellow Not Available In-Office Order Internal Use Only DO Not Attach Compendium DO Not Attach Compendium, Do Not Delete/merge, [id number] 08/13/2015 17:44:45 Result Notes None recorded. Problems Name Problem SNOMED Code Status Onset Date Resolution Date Notes Provider Name and Address Organization Details Recorded Time Bladder muscle dysfunction - overactive Active Christopher rodriguez, [facility] 6 18:47:23 Acute urinary tract infection 024486802 Active Christopher rodriguez, [facility] 6 18:47:23 Problem Notes None recorded. Procedures [...] 97 Caesarean Section completed Ally Hughes MA [facility] 08/13/2015 17:38:42 03/11/19 95 Caesarean Section completed Ally Hughes MA [facility] 08/13/2015 17:38:34 12/15/18 93 Caesarean Section completed Ally Hughes MA [facility] 08/13/2015 17:38:20 Imaging Results None [...] Address Organization Details Last Updated DateTime 08/13/2015 86543.06 637 g 165.1 cm 33.4 kg/m2 132 mm[Hg] 96 mm[Hg] Ally Hughes MA [facility] 6 17:39:13 Social History Question Answer Notes LastModified by Organizat ion Details LastModified Time Tobacco Smoking Status Current Every Day Smoker Ally Hughes MA null, [facility] 08/13/2015 17:43:56 Do You Have An Advance Directive? No Information not available 08/13/2015 Is Blood Transfusion Acceptable In An Emergency? Yes Information not available 08/13/2015 How Much Tobacco Do You Chew? None Information not available 08/13/2015 What Type Of Diet Are You Following? REGULAR Information not available 08/13/2015 Which Illicit Or Recreational Drugs Have You Used? Marijuana Information not available 08/13/2015 Education 12 Information no t available 08/13/2015 Live Alone Or With Others? [...] Functional Status Question Answer Note LastModified by Organizat ion Details LastModified Time What is your level of alcohol consumption? Occasional Information not available 08/13/2015 Are you currently employed? 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 Moderate Information not available 08/13/2015 Mental Status None recorded. Family History Relationship Description Onset Age of this Age Resolved Age Notes LastModified by Organization Details LastModified Time Mother Parkinson's disease diabet ic, depres nic, hypert ension [email or web address] Not available 08/13/2015 18:47:29 Father Malignant neoplasm of lung 50 [email or web address] Not available 08/12 18:47:29 Medical History Condition Response Coronary Artery Disease N Blood Diseases N Kidney Cyst N Hyperthyroidism N Blood Transfusion N MRSA N Blood disorders N Emphysema N COPD N Blood Clots N Depression Y Pneumonia N Peripheral Arterial Disease N Premature N Edema N TIA N Headaches/Migraines N Anxiety Disorder Y Obesity N Infertility N Polyps N Acid Reflux (GERD) N Hematuria N Stroke N Neck Injury N Polio N Hospital Admission other than N Neurologic Disorder N Other Sleep Disorders N Rheumatoid Arthritis N Fibromyalgia N Abdominal Aortic Aneurysm Repair N Kidney Disease N Heart Conditions N Heart Disease/Heart Problems N Hospitalizations N Brain Tumors N Acne Y Eating Disorder N Skin Problems N Constipation N Meningitis N Tuberculosis N Cerebral Palsy N Myocardial Infarction N Asthma N Substance Abuse N Peripheral Vascular Disease N Vertigo N Sleep Disorder N Cirrhosis N Pulmonary Embolism N Chicken Pox N Flomax Use Past or Present N Hematologic Disease N Anxiety/Depression Y Thyroid Disease N Colon Cancer N Glaucoma N Lung Disease N Developmental or Behavioral Disorders N Bipolar N Pacemaker N Diverticulitis/Diverticulosis N Anesthesia Complications N Orthopedic Problems N Orthotics N Head Injury/Concussion N Congenital Anomalies N Lugo Bite N Chronic Kidney Disease N Endometriosis N Liver Disease N Dialysis N Schizophrenia N Speech Delay N Chronic Obstructive Pulmonary Disease N Parkinson's Disease N Thyroid Problems N GI Problems N Developmental Delay N Anemia N Immune System Disorder N Multiple Sclerosis N Colon Polyps N Heart Attack ([place]) N Diabetes N Cardiomyopathy N Blood Transfusions N Heart Problems/Murmur N Eye Trauma N Congestive Heart Failure (CHF) N Valvular Heart Disease N Hyperlipidemia N Double Vision N Abuse/Domestic Violence N Hepatitis B N Lupus N Epilepsy/Seizures N Reflux/GERD N Aneurysm N Bronchitis N Heart Disease N Hypertension N Pre-Eclampsia N Heart Failure N Other N Gout [...] N Kidney Failure N Ocular trauma N Dementia N Diverticulitis N Sleep Apnea N Mental Problems N [...] SNOMED-CT Code Diagnosis ICD10 Code Diagnosis Note [id number] MD Katherine Price (PULPING MACHINE OPERATOR) [address] [place] [id number] 08/13/2015 15:33:44 08/13/2015 19:02:35 Bladder muscle dysfunction - overactive 368239471 N32.81 Acute urin ricardo tract infection 668797634 N39.0 Health Concerns Section Related Observation LastModified by Organization Detai ls LastModified Time None Recorded Concern Status LastModified by Organization Details LastModified Time None Recorded Advance Directives Directive N: Payers Insurance Date Sequence Insurance Name Policy Number Policy Delgadillo Covered Member ID Delgadillo Member ID Guarantor Name 11/22/2017 1 [facility] (MEDICAID HMO) [id number] Jose Rafael Barnes [id number] Jose Rafael Barnes Notes Date Note Type [...] follow up with her pcp. Christopher rodriguez, [place] - [facility] 08/13/2015 19:01:03 OBGyn Episode Ob Episode Information Episode Created Date Number of Fetuses Patient Bloodtype Patient rh Status Prepregnancy Weight lbs Domestic Partner Domestic Partner Phone Father Name Hop Weigher Status 08/15/19 16 1 CLOSED Fetus Data First Name Last Name Admitted to NICU Weight (g) Sex Living Outcome Pediatric Complications Fetus ID Race Codes Race Delivery Type 3628.73 6 M Full Term 91454 Gopi Calculation Initial Gopi Date Initial Exam [...] Domestic Partner Domestic Partner Phone Father Name Hop Weigher Status 08/15/19 16 1 CLOSED Fetus Data First Name Last Name Admitted to NICU Weight (g) Sex Living Outcome Pediatric Complications Fetus ID Race Codes Race Delivery Type 3572.03 7 F Full Term 13274 Gopi Calculation Initial Gopi Date Initial Exam [...] Domestic Partner Domestic Partner Phone Father Name Hop Weigher Status 08/15/19 16 1 CLOSED Fetus Data First Name Last Name Admitted to NICU Weight (g) Sex Living Outcome Pediatric Complications Fetus ID Race Codes Race Delivery Type 4394.17 25 M Full Term 74974 Vaginal Gopi Calculation Initial Gopi Date Initial [...] Domestic Partner Domestic Partner Phone Father Name Hop Weigher Status 08/15/19 16 2 CLOSED Fetus Data First Name Last Name Admitted to NICU Weight (g) Sex Living Outcome Pediatric Complications Fetus ID Race Codes Race Delivery Type 2353.00 85 M Prematur e 08855 2693.20 25 M Prematur e [address]1072 Gopi Calculation Initial Gopi Date Initial Exam [...]
--- OUTSIDE RECORDS SUMMARY | 2024-10-15 00:38 | XMS_ITS | Referral Summary ---
Author Organization [facility] Address [address] [place] [id number] Care Team Providers Care Shadowgraph Operator Name Role Phone Cindy Barnes NP Primary [...] on file Legal Sex Female 10:09 AM [employer] Gender Identity Not on file Sexual Orientation Not on file Last Filed Vital Signs Vital Sign Reading Time Taken Comments Blood Pressure 159/95 06/08/2020 1:06 PM MANA[employer] Pulse 89 06/08/2020 1:06 PM MANAGER [employer] Temperature - - Respiratory Rate - - Oxygen Saturation - - Inhaled Oxygen Concentration - - Weight 98.2 kg (216 lb 6.4 oz) 06/08/2020 1:06 P M [employer] Height 167.6 cm (5' 6) 06/08/2020 1:06 PM MANAGER [employer] Body Mass Index 34.93 06/08/2020 1:06 PM MANAGER [employer] Plan of Treatment Not on file Insurance [facility] Care Teams Shadowgraph Operator Relationship Specialty Start Date End Date Cindy Barnes NP [address] [place] [id number] PCP - General Nurse Practitioner 04/06/20
--- OUTSIDE RECORDS SUMMARY | 2024-10-15 00:38 | XMS_ITS | Continuity of Care Document ---
Author Organization [facility] Address [address] [facility] [place] [address] Phone Care Team Providers Care Operating Room Manager Name Role Phone Anthony Hinson MD Unavailable Unavailable Allergies, Adverse Reactions, Alerts Substance Reaction Status Criticality No Known Allergies Active No Inform ation Medications Medication Instructions Dosage Effective Dates (start - stop) Status Comments propranolol 60 mg tablet take 1 tablet by oral route 2 times every day 60 MG - Active Celexa 20 mg tablet take 1 tablet by ora l route every day 20 MG - Active Procedures Procedure Date PREV [...] Diagnoses Date Provider Providers Copied on Encounter [facility], [address] [place] [address], [id number], [place] tel:[phone] [facility] No Information 8 Sravan Cruz. [address], [place], [place], [address] , [place]. [phone] PREV VISIT, EST, AGE 40-64 [facility], [address], [place], [place], [address], [place] [phone] [facility] Physical (chief complaint) Encntr for general adult medical exam w/o abnormal findings 8 Sravan Cruz. [address], [address], [place], [place], [address] , [place]. [phone] Referring Provider: Demetria [address], [place], [place], [address]. tel:[phone] OFFICE/OUTPA TIENT VISIT, EST [facility], [address], [place], [place], [address], [place] [phone] [facility] insomnia1 (chief complaint) anxiety1 (chief complaint) headache1 (chief complaint) InsomniaGeneralized anxiety disorderHeadache 7 Sravan Cruz. [address], [place], [place], [address] , [place]. tel:[phone] Referring Provider: Demetria [address], [place], [place], [address]. tel:[phone] PREV VISIT, EST, AGE 40-64 [facility], [address], [place], [place], [address], [place] tel:[phone] [facility] PHysical (chief complaint) Encounter for general adult medical exam w abnormal findingsGeneralized anxiety disorderChronic sinusitis, unspecifiedInsomnia 6 Sravan Cruz. [address], [place], [place], [address] , [place]. tel:[phone] Referring Provider: Demetria [address], [place], [place], [address]. tel:[phone] OFFICE/OUTPA TIENT VISIT, [facility], [address], [place], [place], [address], [place] tel:[phone] [facility] insomnia1 (chief complaint) anxiety1 (chief complaint) tremor1 (chief complaint) facial acne1 (chief complaint) TremorGeneralized anxiety disorderOther insomniaRash 6 Sravan Cruz. [address], [place], [place], [address] , [place]. [phone] Referring Provider: Demetria [address], [place], [place], [address]. tel:[phone] OFFICE/OUTPA TIENT VISIT, [facility], [address], [place], [place], [address], [place] tel:[phone] [facility] anxiety1 (chief complaint) dizziness1 (chief complaint) tremor (chief complaint) TremorGeneralized anxiety disorderHeadacheDiz ziness 6 Sravan Cruz. [address], [place], [place], [address] , [place]. [phone] Referring Provider: Demetria [address], [place], [place], [address]. tel:[phone] OFFICE/OUTPA TIENT VISIT, [facility], [address], [place], [place], [address], [place] [phone] [facility] dizziness1 (chief complaint) tremor (chief complaint) tremor1 (chief complaint) anxiety1 (chief complaint) VertigoTremorGenera lized anxiety disorder 6 Sravan Cruz. [address], [place], [place], [address] , [place]. [phone] Referring Provider: Demetria [address], [place], [place], [address]. tel:[phone] OFFICE/OUTPA TIENT VISIT, [facility], [address], [place], [place], [address], [place] tel:[phone] [facility] vertigo1 (chief complaint) insomnia1 (chief complaint) tremor1 (chief complaint) skin infection (chief complaint) VertigoGeneralized anxiety disorderTremorCellu litis of abdominal wall 6 Sravan Cruz. [address], [place], [place], [address] , [place]. [phone] Referring Provider: Demetria [address], [place], [place], [address]. tel:[phone] OFFICE/OUTPA TIENT VISIT, [facility], [address], [place], [place], [address], [place] tel:[phone] [facility] anxiety1 (chief complaint) insmonia1 (chief complaint) tremor1 (chief complaint) Generalized anxiety disorderOther insomniaTremor 6 Sravan Rosa [address], [place], [place], [address] , [place]. [phone] Referring Provider: Demetria [address], [place], [place], [address]. tel:[phone] OFFICE/OUTPA TIENT VISIT, [facility], [address], [place], [place], [address], [place] tel:[phone] [facility] abscess (chief complaint) breast nodule1 (chief complaint) Cellulitis of groinFibrocystic disease of left breast 6 Sravan Rosa [address], [place], [place], [address] , [place]. [phone] Referring Provider: Demetria [address], [place], [place], [address]. tel:[phone] OFFICE/OUTPA TIENT VISIT, [facility], [address], [place], [place], [address], [place] tel:[phone] [facility] breast nodule1 (chief complaint) anxiety1 (chief complaint) nodule (chief complaint) insomnia1 (chief complaint) LipomaUnspecified lump in breastGeneralized anxiety disorderOther insomnia 0201 6 Sravan Cruz. [address], [place], [place], [address] , [place]. tel:[phone] Referring Provider: Demetria [address], [place], [place], [address]. tel:[phone] OFFICE/OUTPA TIENT VISIT, [facility], [address], [place], [place], [address], [place] tel:[phone] [facility] anxiety1 (chief complaint) weight (chief complaint) fatigue1 (chief complaint) headache (chief complaint) Generalized anxiety disorderObesitySlee p apneaInconclusive mammogram 6 Sravan Rosa [address], [place], [place], [address] , [place]. tel:[phone] Referring Provider: Demetria Douglas [address], [place], [place], [address]. tel:[phone] OFFICE/OUTPA TIENT VISIT, [facility], [address], [place], [place], [address], [place] tel:[phone] [facility] anxiety1 (chief complaint) headache1 (chief complaint) weight (chief complaint) Encounter for oth screening for malignant neoplasm of breastGeneralized anxiety disorderObesityHead ache 6 Sravan Rosa [address], [place], [place], [address] , [place]. tel:[phone] Referring Provider: Demetria [address], [place], [place], [address]. tel:[phone] OFFICE/OUTPA TIENT VISIT, [facility], [address], [place], [place], [address], [place] tel:[phone] [facility] obesity (chief complaint) anxiety1 (chief complaint) insomnia1 (chief complaint) sinus (chief complaint) Acute sinusitisOther insomniaGeneralized anxiety disorderOther obesity 5 6 Sravan Rosa [address], [place], [place], [address] , [place]. tel:[phone] Referring Provider: Anthony Hinson, [address], [place], [place], [address]. tel:[phone] OFFICE/OUTPA TIENT VISIT, [facility], [address], [place], [place], [address], [place] tel:[phone] [facility] insomnia1 (chief complaint) anxiety1 (chief complaint) obesity1 (chief complaint) Body mass index (BMI) 34.0-34.9, adultGeneralized anxiety disorderOther insomnia 5 Sravan Cruz. [address], [place], [place], [address] , [place]. tel:[phone] Referring Provider: Anthony Hinson, [address], [place], [place], [address]. tel:[phone] OFFICE/OUTPA TIENT VISIT, [facility], [address], [place], [place], [address], [place] tel:[phone] [facility] glucose1 (chief complaint) vitamin d (chief complaint) HLP1 (chief complaint) anxiety1 (chief complaint) insomnia1 (chief complaint) Generalized anxiety disorderHyperglycem iaVitamin D deficiency, unspecifiedMixed hyperlipidemia 5 Sravan Cruz. [address], [place], [place], [address] , [place]. tel:[phone] Referring Provider: Demetria [address], [place], [place], [address]. tel:[phone] PREV VISIT, NEW, AGE 18-39 [facility], [address], [place], [place], [address], [place] tel:[phone] [facility] PHysical (chief complaint) Encntr for general adult medical exam w/o abnormal findings 5 Sravan Cruz. [address], [place], [place], [address] , [place]. tel:[phone] Family History Family Member Type Diagnosis Age At Onset Brother Problem (finding) Alive and well Mother Problem (finding) parkinson, Father Problem (finding) lung CA Mother Problem (finding) Diabetes mellitus type 2 Payers Payer name Insurance type Covered alliance party ID Authoriza tion(s) No Information Social History [...] Rash) ordered Referral Referred To: Monroe Wilkins [address] [place], [phone] Ordered: Referrals: Monroe Wilkins. Evaluate and treat [...] PT denies any suicidal or homcidialt hought vertigo1 Pt c/o suddent o nset of [...] during the episodes. ,Pt denies any SOB insomnia1 Pt states that s he has insomnia. Pt states that vistaril no longer works for her. Pt states that she could not fall asleep for hours. Pt is noncompliant with sleep study tremor1 PT c/o diffuse t ermor all over arm and leg. Pt states the tremor is worse all the time. Pt statse that she has family history of parkinson disease. Pt denies any headache. Pt states that requp did not help at all skin infection Pt has recurrent superficial skin infectoin, especiall around low abdomen inferior to umblicus. Pt notices induration with pain. Pt denies any drainage .Pt has current infection for one week. Pt denies any fever anxiety1 Pt has chronic a nxiety and depression. Pt takes celexa and xanax and doing ok. pt denies any sucidal or homicidal thought Pt denies any crying spells. pt has been having a lot of stress at home. insmonia1 pt has insomnia. Pt takes vistaril qhs and doing ok. Pt is noncompliant with sleep study Pt snores and feels fatigue tremor1 Pt c/o tremor ar ound hand and leg for years. Pt does not drink alcohol Pt feels that her leg is restless at night for long time. Pt notices some tingling both hand last week but resolved now abscess Pt c/o left groi n pimple since last Thursday and then developed to abscess with pain and pus draiange. Pt c/o pain. Pt denies any fever, chill. NO headache breast nodule1 Pt had left mian st nodule biospy. Pt denies any breast pain or any fever breast nodule1 Pt c/o left mian st nodule and pain for several years, but worse lately. Pt has abnormal ultraosund and she will undergo biospy in one week. Pt also just had manual breast exam done by livestock feeder recently and was also told left breast does not feel normal. Pt no longer needs pap smear per CORPORATE TRAFFIC MANAGER per pt anxiety1 Pt has chronic a nxiety and depression. Pt takes celexa and xanax and doing ok. Pt denies any suiciadl or homicidal thought nodule Pt notices nonte nder noulde behind right shoulder for two months, no change in size. NO pain. insomnia1 Pt has insomnia. Pt takes vistaril qhs and doing ok. Pt is noncompilant with sleep study anxiety1 Pt has chronic a nxziety and depression. Pt has been having more stress lately due to personal situation. Pt is taking celexa and xanax Pt denies any cyring spells. Pt denies any feeling of hopelessness weight Pt has been taki ng phentermine. Pt denies any chest pain or headache Pt has not been able to lose much weight but she feels more energy with it and she wants to continue on it for now. Pt has not been diet and exercising last month. fatigue1 Pt has chronic m orning fatigue and she also snores at night. Pt states that she does not want sleep study anymore sine she does not want to wear the mask even if she does have sleep apnea. headache Pertinent negati ves include memory loss [...] OTC meds. PT denies any fever Dec-28-2015 insomnia1 Pt has insomnia Pt states that ralph did not work. Pt sometimes stop breathing at night. Pt has difficulty falling alseep anxiety1 Pt has chronic a nxiety and depression. Pt denies any suicidal or homicidal thought. Pt doign ok with celexa and axnax. Pt denies any crying spells. obesity1 pt has difficult y losing weight. Pt is obese Pt is doing zunba and also only eat one meal per day. Pt is frustate about lack of weight los insomnia1 Pt has chronic i nsomnia. Pt uanble to fall asleep. Pt states that she does not know if she snore at night or not. Pt feels very fatigue in the morning . Pt states that she feels sometimes she stop breathing at night glucose1 Pt has mildly hi gh glucose Pt denies any polyuria, polydipsia vitamin d Pt has low vitam in D. HLP1 Pt has elevated TG and TC. pt does not eat very healthy. anxiety1 Pt has chronic a nxiety and depression. Pt states that celexa and xanax is helping above symptoms. P denies any feeling of hopelessness Pt denies any crying spells. PHysical Pt needs annual physical. Pt has [...]
--- OUTSIDE RECORDS SUMMARY | 2024-10-15 00:38 | XMS_ITS | Clinical Summary ---
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 Gender Identity Not on file Sexual Orientation Not on file Obstetrics History Last Filed Vital Signs Vital Sign Reading Time Taken Comments Blood Pressure 159/95 06/08/2020 1:06 PM REAL ESTATE SALESPERSON Pulse 89 06/08/2020 1:06 PM REAL ESTATE SALESPERSON Temperature - - Respiratory Rate - - Oxygen Saturation - - Inhaled Oxygen Concentration - - Weight 98.2 kg (216 lb 6.4 oz) 06/08/2020 1:06 P M REAL ESTATE SALESPERSON Height 167.6 cm (5' 6) 06/08/2020 1:06 PM REAL ESTATE SALESPERSON Body Mass Index 34.93 06/08/2020 1:06 PM REAL ESTATE SALESPERSON Plan of Treatment Not on file Insurance [facility] Care Teams Envelope Folder Relationship Specialty Start Date End Date Cindy Barnes NP [address] [place] [phone] PCP - General Nurse Practitioner 04/06/20
--- OUTSIDE RECORDS SUMMARY | 2024-10-15 00:38 | XMS_ITS | Continuity of Care Document ---
Author Organization [facility] Address [address] [facility] [address] [place] [address] Phone Care Team Providers Care Solderer Dipper Name Role Phone Hi OD, Christopher Unavailable Unavailable Procedures Procedure Date Eye Exam & Treatment Refraction Advance Directives Directive Yes / No Effective Date File Name No Information Encounters Encounter Description Practice Location Reason(s) For Visit Diagnoses Date Provider Providers Copied on Encounter [facility], [address], [place], [place], [id number], [place] tel:[phone] [facility] [place] No Information [phone] Hi OD Christopher. [address] , [address], [place], [address], [place]. tel:[phone] Family History Family Member Type Diagnosis Age At Onset No Information Payers Payer name Insurance type Covered alliance party ID Authoriza tion(s) Medicaid [facility] [id number] Social History Type Description Quantity Date Captured [...]
--- OUTSIDE RECORDS SUMMARY | 2024-10-15 00:38 | XMS_ITS | Clinical Summary ---
Author Organization [facility] Address [address] [facility] [place] [address] Care Team Providers Care Telegraph Installer Name Role Phone Cameron Cindychelle MATT Primary Care Provider [phone] Source Comments [facility] [employer] [employer],non-owned Affiliates and Associated Physician Practices is amultiple site organization consisting of ambulatory clinics and hospital sitesin [place], [place], [place] and [place]. This disclosure is being madepursuant to the Care Everywhere program and may not contain all information available regarding this patient. Last updated 18.[facility] [employer] Allergies No known active allergies Medications * Be aware that medications may not be up to date on this document. Alwaysverify current medications with the patient. risperiDONE (RISPERDAL) 1 MG tablet Take 1 mg by mouth once daily 9 Active zolpidem (AMBIEN) 10 MG tablet Take 10 mg by mouth at bedtime 9 Active traZODone (DESYREL) 50 MG tablet Take 1.5 tablets by mouth at bedtime 9 Active propranolol (INDERAL) 80 MG tablet Take 80 mg by mouth 2 times daily 9 Active buPROPion SR 12hr (WELLBUTRIN SR) 200 MG tablet Take 200 mg by mouth 2 times daily 9 Active spironolactone (ALDACTONE) 50 MG tablet Take 50 mg by mouth once daily 9 Active omeprazole (PRILOSEC) 20 MG capsule Take 20 mg by mouth once daily 9 Active erythromycin (ERYDERM) 2 % solution Apply 1 drop to affected area once daily 9 Active terbinafine (LAMISIL) 250 MG tabletIndicatio ns:Onychomycosi s Take 1 tablet by mouth once daily 84 tablet 9 Active Additional Information Patient not taking.Reported on 01/20/2019 itraconazole (ONMEL) 200 MG tabletIndicatio ns:Onychomycosi s Take 1 tablet by mouth daily with food for 12 wks. 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 Gender Identity Not on file Sexual Orientation [...] 1994 PAP with HPV 2005 COVID-19 VACCINE (1 - 2023-2 5 season) 2024 DEPRESSION SCREENING 05/04/2024 INFLUENZA VACCINE (Season Ended) 2025 ZOSTER VACCINE (1 of 2) 2025 HIB VACCINE Aged Out No longer eligi ble based on patient's age to complete this topic HPV VACCINE Aged Out No longer eligi ble based on patient's age to complete this topic MENINGOCOCCAL (Group B) VACC INE SHARED DECISION-MAKING Aged Out No longer eligibl e based on patient's age to complete this topic MENINGOCOCCAL GROUPS A/C/Y/W VACCINE Aged Out No longer eligible b ased on patient's age to complete this topic Insurance [facility] [place]ICAID - [place] Care Teams Telegraph Installer Relationship Specialty Start Date End Date Cindy Mcclure APRN-CNP [address] [place] [address] PCP - General 06/03/18
--- OUTSIDE RECORDS SUMMARY | 2024-10-15 00:38 | XMS_ITS | Encounter Summary ---
Author Organization [facility] Address [address] [facility] [place] [address] Care Team Providers Care Technical Service Rep Name Role Phone Cindy Barnes APRN-MIRNA Primary Care Provider [phone] Encounter Details Date Type Department Care Team (Late st Contact Info) Description 02/23/2024 Lab Requisition [facility] - DermPath Lab [address] [place] [id number] Chente Smith MD [address] [place] [address] Social History Tobacco Use Types Packs/Day Years Used Date Smoking Tobacco: Every Day Cigarettes 0.5 30 Smokeless Tobacco: Never Alcohol Use Standard Drinks/Week Comments No 0 (1 standard drink = 0.6 oz pur e alcohol) Comments Unknown Sex and Gender Information Value Date Recorded Sex Assigned at Not on file 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 Gender Identity Not on file Sexual Orientation Not on file documented as of this encounter Plan of Treatment Not on file documented as of this encounter Procedures Procedure Name Priority Date/Time Associated Diagnosis Comments DERMATOPATHOLOGY Routine 02/22/2024 12:0 0 AM CDT documented in this encounter Results * DERMATOPATHOLOGY (02/22/2024 12:00 AM CDT) Case Report Dermatopathology Report Case: [id number] Authorizing Provider: Chente Smith MD Collected: 02/22/2024 12:00 AM Ordering Location: [facility] - Received: 02/23/2024 12:38 PM DermPath Lab Pathologist: Alba Feliciano MD Specimen: Skin, left shoulder 12:33 PM T DERMATOPATHOLOGY LABORATORY Final Diagnosis Specimen A. SKIN, left shoulder: PIGMENTED SEBORRHEIC KERATOSIS (L82.1) NOT PRESENT AT SAMPLED MARGIN 12:33 PM T DERMATOPATHOLOGY LABORATORY at 1233 CDT Clinical History Changing lesion 12:33 PM CDT DERMATOPATHOLOGY LABORATORY Gross Description Specimen A: Received is one formalin filled container labeled with the patient's name and designated left shoulder. The specimen consists of a non-oriented ellipse of skin measuring [id number] mm. The epidermal surface is unremarkable. The [...] characteristic determined by the Dermatopathology Laboratory at [facility], directed by Dr. Dixon Ayers. These tests need not be, and therefore are not, approved by the [place] Food and Drug Administration. The tests are used for clinical purposes. Billing Codes Specimen Charges Stain Charges 08247 1 12:33 PM CDT DERMATOPATHOLOGY LABORATORY Embedded Images 12:33 PM CDT DERMATOPATHOLOGY LABORATORY Pathology/Cytolog y TISSUE SPECIMEN FROM SKIN / Unknown 02/22/2024 02/23/2024 12:38 PM CDT us Chentenorma Smith MD LAB - PATHOLOGY/CYTOLOGY TYRA MONTIEL Final Result DERMATOPATHOLOGY LABORATORY [facility] - Department of Dermatology [facility] Specialized Medicine [address] [place] [address], [address] [phone] documented in this encounter Visit Diagnoses Not on filedocumented in this encounter Care Teams Technical Service Rep Relationship Specialty Start Date End Date Cindy Barnes APRN-MIRNA [address] [place] [id number] PCP - General 06/03/18 documented as of this encounter
[2024-10-15 00:49] VITALS: BP 156/90; PULSE 95; RESP 16; TEMP 36.7; O2SAT 96
--- OUTSIDE RECORDS SUMMARY | 2024-10-15 01:16 | XMS_ITS | Clinical Summary ---
Author Organization [facility] Medical Office Building B Address [address] [place] [phone] Care Team Providers Care Fur Blowing Machine Operator Name Role Phone Cindy Barnes NP [...] on file Legal Sex Female 10:09 AM BUSINESS ANALYTICS INTERN Gender Identity Not on file Sexual Orientation Not on file Obstetrics History Last Filed Vital Signs Vital Sign Reading Time Taken Comments Blood Pressure 159/95 06/08/2020 1:06 PM BUSINESS ANALYTICS INTERN Pulse 89 06/08/2020 1:06 PM BUSINESS ANALYTICS INTERN Temperature - - Respiratory Rate - - Oxygen Saturation - - Inhaled Oxygen Concentration - - Weight 98.2 kg (216 lb 6.4 oz) 06/08/2020 1:06 P M BUSINESS ANALYTICS INTERN Height 167.6 cm (5' 6) 06/08/2020 1:06 PM BUSINESS ANALYTICS INTERN Body Mass Index 34.93 06/08/2020 1:06 PM BUSINESS ANALYTICS INTERN Plan of Treatment Not on file Insurance [facility] Care Teams Fur Blowing Machine Operator Relationship Specialty Start Date End Date Cindy Barnes NP [address] [place] [phone] PCP - General Nurse Practitioner 04/06/20
--- OUTSIDE RECORDS SUMMARY | 2024-10-15 01:16 | XMS_ITS | Encounter Summary ---
Author Organization [facility] Address [address] [facility] [place] [address] Care Team Providers Care Harvest Manager Name Role Phone Cindy Barnes APRN-MIRNA Primary Care Provider [phone] Encounter Details Date Type Department Care Team (Late st Contact Info) Description 02/23/2024 Lab Requisition [facility] - DermPath Lab [address] [place] [id number] Chente Smith MD [address] [place] [address] Social History Tobacco Use Types Packs/Day Years Used Date Smoking Tobacco: Every Day Cigarettes 0.5 30 Smokeless Tobacco: Never Alcohol Use Standard Drinks/Week Comments No 0 (1 standard drink = 0.6 oz pur e alcohol) Comments Unknown Sex and Gender Information Value Date Recorded Sex Assigned at Not on file 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 Sex 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 Gender Identity Not on file Sexual Orientation Not on file documented as of this encounter Plan of Treatment Not on file documented as of this encounter Procedures Procedure Name Priority Date/Time Associated Diagnosis Comments DERMATOPATHOLOGY Routine 02/22/2024 12:0 0 AM CDT documented in this encounter Results * DERMATOPATHOLOGY (02/22/2024 12:00 AM CDT) Case Report Dermatopathology Report Case: [id number] Authorizing Provider: Chente Smith MD Collected: 02/22/2024 12:00 AM Ordering Location: [facility] - Received: 02/23/2024 12:38 PM [...] of a non-oriented ellipse of skin measuring 64i73b3 mm. The epidermal surface is unremarkable. The [...] characteristic determined by the Dermatopathology Laboratory at [facility], directed by Dr. Dixon Ayers. These tests need not be, and therefore are not, approved by the [place] Food and Drug Administration. The tests are used for clinical purposes. Billing Codes Specimen Charges Stain Charges 23385 1 12:33 PM CDT DERMATOPATHOLOGY LABORATORY Embedded Images 12:33 PM CDT DERMATOPATHOLOGY LABORATORY Pathology/Cytolog y TISSUE SPECIMEN FROM SKIN / Unknown 02/22/2024 02/23/2024 12:38 PM CDT us Chentenorma Smith MD LAB - PATHOLOGY/CYTOLOGY TYRA MONTIEL Final Result DERMATOPATHOLOGY LABORATORY [facility] - Department of Dermatology [facility] Specialized Medicine [address] [place] [address], [address] [phone] documented in this encounter Visit Diagnoses Not on filedocumented in this encounter Care Teams Harvest Manager Relationship Specialty Start Date End Date Cindy Barnes APRN-MIRNA [address] [place] [address] PCP - General 06/03/18 documented as of this encounter
--- OUTSIDE RECORDS SUMMARY | 2024-10-15 01:16 | XMS_ITS | Continuity of Care Document ---
Author Organization [facility] Address [address] [facility] [address] [place] [address] Phone Care Team Providers Care Security Control Assessor Name Role Phone Hi OD, Christopher Unavailable Unavailable Procedures Procedure Date Eye Exam & Treatment Refraction Advance Directives Directive Yes / No Effective Date File Name No Information Encounters Encounter Description Practice Location Reason(s) For Visit Diagnoses Date Provider Providers Copied on Encounter [facility], [address], [place], [place], [id number], [place] tel:[phone] [address] [facility] [place] No Information 7-201 0 Hi OD Christopher. [address] , [address], [place], [address], [place]. tel:[phone] Family History Family Member Type Diagnosis Age At Onset No Information Payers Payer name Insurance type Covered constitution party ID Authoriza tion(s) Medicaid [facility] [id number] Social History Type Description Quantity Date Captured [...]
--- OUTSIDE RECORDS SUMMARY | 2024-10-15 01:16 | XMS_ITS | Clinical Summary ---
Author Organization [facility] Address [address] [facility] [place] [address] Care Team Providers Care Certified Vehicle Fire Investigator Name Role Phone Cameron Cindychelle MATT Primary Care Provider [phone] Source Comments [facility],non-owned Affiliates and Associated Physician Practices is amultiple site organization consisting of ambulatory clinics and hospital sitesin [place], [place], [place] and [place]. This disclosure is being madepursuant to the Care Everywhere program and may not contain all information available regarding this patient. Last updated 18.[facility] Allergies No known active allergies Medications * [...] on file Legal Sex Female 3:10 PM HR REPRESENTATIVE Gender Identity Not on file Sexual Orientation [...] age to complete this topic Insurance [facility] [place]ICA[place] [address] Care Teams Certified Vehicle Fire Investigator Relationship Specialty Start Date End Date Cindy Mcclure APRN-CNP [address] [place] [address] PCP - General 06/03/18
--- OUTSIDE RECORDS SUMMARY | 2024-10-15 01:16 | XMS_ITS | Referral Summary ---
Author Organization [facility] Address [address] [place] [address] Care Team Providers Care Fund Raiser Name Role Phone Cindy Barnes NP Primary [...] on file Legal Sex Female 10:09 AM BLACK LEATHER TRIMMER Gender Identity Not on file Sexual Orientation Not on file Last Filed Vital Signs Vital Sign Reading Time Taken Comments Blood Pressure 159/95 06/08/2020 1:06 PM BLACK LEATHER TRIMMER Pulse 89 06/08/2020 1:06 PM BLACK LEATHER TRIMMER Temperature - - Respiratory Rate - - Oxygen Saturation - - Inhaled Oxygen Concentration - - Weight 98.2 kg (216 lb 6.4 oz) 06/08/2020 1:06 P M BLACK LEATHER TRIMMER Height 167.6 cm (5' 6) 06/08/2020 1:06 PM BLACK LEATHER TRIMMER Body Mass Index 34.93 06/08/2020 1:06 PM BLACK LEATHER TRIMMER Plan of Treatment Not on file Insurance [facility] Care Teams Fund Raiser Relationship Specialty Start Date End Date Cindy Barnes NP [address] [place] [phone] PCP - General Nurse Practitioner 04/06/20
--- OUTSIDE RECORDS SUMMARY | 2024-10-15 01:16 | XMS_ITS | Continuity of Care Document ---
Author Organization [facility] Address [address] [facility] [place] [address] Phone Care Team Providers Care [employer] Developer Name Role Phone Anthony Hinson MD Unavailable [...] [facility], [address] [place] [address], [id number], [place] tel:[phone] [facility] No Information 8 Sravan Cruz. [address], [place], [place], [address] , [place]. [phone] PREV VISIT, EST, AGE 40-64 [facility], [address], [place], [place], [address], [place] [phone] [facility] Physical (chief complaint) Encntr for general adult medical exam w/o abnormal findings 8 Sravan Cruz. [address], [place], [place], [address] , [place]. tel:[phone] Referring Provider: Demetria Douglas [address], [place], [place], [id number]. tel:[phone] OFFICE/OUTPA TIENT VISIT, EST [facility], [address], [place], [place], [address], [place] [phone] [facility] insomnia1 (chief complaint) anxiety1 (chief complaint) headache1 (chief complaint) InsomniaGeneralized anxiety disorderHeadache 7 Sravan Cruz. [address], [place], [place], [address] , [place]. tel:[phone] Referring Provider: Demetria Douglas [address], [place], [place], [address]. tel:[phone] PREV VISIT, EST, AGE 40-64 [facility], [address], [place], [place], [address], [place] tel:[phone] [facility] PHysical (chief complaint) Encounter for general adult medical exam w abnormal findingsGeneralized anxiety disorderChronic sinusitis, unspecifiedInsomnia 6 Sravan Cruz. [address], [place], [place], [address] , [place]. tel:[phone] Referring Provider: Demetria [address], [place], [place], [address]. tel:[phone] OFFICE/OUTPA TIENT VISIT, [facility], [address], [place], [place], [address], [place] tel:[phone] [facility] insomnia1 (chief complaint) anxiety1 (chief complaint) tremor1 (chief complaint) facial acne1 (chief complaint) TremorGeneralized anxiety disorderOther insomniaRash 6 Sravan Cruz. [address], [place], [place], [address] , [place]. [phone] Referring Provider: Demetria [address], [place], [place], [address]. tel:[phone] OFFICE/OUTPA TIENT VISIT, [facility], [address], [place], [place], [address], [place] tel:[phone] [facility] anxiety1 (chief complaint) dizziness1 (chief complaint) tremor (chief complaint) TremorGeneralized anxiety disorderHeadacheDiz ziness 6 Sravan Cruz. [address], [place], [place], [address] , [place]. [phone] Referring Provider: Demetria Douglas [address], [place], [address]. tel:[phone] OFFICE/OUTPA TIENT VISIT, [facility], [address], [place], [place], [address], [place] [phone] [facility] dizziness1 (chief complaint) tremor (chief complaint) tremor1 (chief complaint) anxiety1 (chief complaint) VertigoTremorGenera lized anxiety disorder 6 Sravan Cruz. [address], [place], [place], [address] , [place]. [phone] Referring Provider: Demetrai [address], [place], [address]. tel:[phone] OFFICE/OUTPA TIENT VISIT, [facility], [address], [place], [place], [address], [place] tel:[phone] [facility] vertigo1 (chief complaint) insomnia1 (chief complaint) tremor1 (chief complaint) skin infection (chief complaint) VertigoGeneralized anxiety disorderTremorCellu litis of abdominal wall 6 Sravan Cruz. [address], [place], [address] , [place]. [phone] Referring Provider: Demetria Douglas [address], [place], [address]. tel:[phone] OFFICE/OUTPA TIENT VISIT, [facility], [address], [place], [address], [place] tel:[phone] [facility] anxiety1 (chief complaint) insmonia1 (chief complaint) tremor1 (chief complaint) Generalized anxiety disorderOther insomniaTremor 6 Sravan Rosa [address], [place], [address] , [place]. [phone] Referring Provider: Demetria [address], [place], [address]. tel:[phone] OFFICE/OUTPA TIENT VISIT, [facility], [address], [place], [place], [address], [place] tel:[phone] [facility] abscess (chief complaint) breast nodule1 (chief complaint) Cellulitis of groinFibrocystic disease of left breast 6 Sravan Rosa [address], [place], [address] , [place]. [phone] Referring Provider: Demetria [address], [place], [address]. tel:[phone] OFFICE/OUTPA TIENT VISIT, [facility], [address], [place], [place], [address], [place] tel:[phone] [facility] breast nodule1 (chief complaint) anxiety1 (chief complaint) nodule (chief complaint) insomnia1 (chief complaint) LipomaUnspecified lump in breastGeneralized anxiety disorderOther insomnia 0201 6 Sravan Cruz. [address], [place], [address] , [place]. tel:[phone] Referring Provider: Demetria [address], [place], [place], [address]. tel:[phone] OFFICE/OUTPA TIENT VISIT, [facility], [address], [place], [place], [address], [place] tel:[phone] [facility] anxiety1 (chief complaint) weight (chief complaint) fatigue1 (chief complaint) headache (chief complaint) Generalized anxiety disorderObesitySlee p apneaInconclusive mammogram 6 Sravan Rosa [address], [place], [place], [address] , [place]. tel:[phone] Referring Provider: Demetria [address], [place], [place], [address]. tel:[phone] OFFICE/OUTPA TIENT VISIT, [facility], [address], [place], [place], [address], [place] tel:[phone] [facility] anxiety1 (chief complaint) headache1 (chief complaint) weight (chief complaint) Encounter for oth screening for malignant neoplasm of breastGeneralized anxiety disorderObesityHead ache 6 Sravan Rosa [address], [place], [place], [address] , [place]. tel:[phone] Referring Provider: Demetria Douglas [address], [place], [address]. tel:[phone] OFFICE/OUTPA TIENT VISIT, [facility], [address], [place], [address], [place] tel:[phone] [facility] obesity (chief complaint) anxiety1 (chief complaint) insomnia1 (chief complaint) sinus (chief complaint) Acute sinusitisOther insomniaGeneralized anxiety disorderOther obesity 5 6 Sravan Rosa [address], [place], [place], [address] , [place]. tel:[phone] Referring Provider: Anthony Hinson, [address], [place], [place], [address]. tel:[phone] OFFICE/OUTPA TIENT VISIT, [facility], [address], [place], [address], [place] tel:[phone] [facility] insomnia1 (chief complaint) anxiety1 (chief complaint) obesity1 (chief complaint) Body mass index (BMI) 34.0-34.9, adultGeneralized anxiety disorderOther insomnia 5 Sravan Cruz. [address], [place], [address] , [place]. tel:[phone] Referring Provider: Anthony Hinson, [address], [place], [place], [address]. tel:[phone] OFFICE/OUTPA TIENT VISIT, [facility], [address], [place], [address], [place] tel:[phone] [facility] glucose1 (chief complaint) vitamin d (chief complaint) HLP1 (chief complaint) anxiety1 (chief complaint) insomnia1 (chief complaint) Generalized anxiety disorderHyperglycem iaVitamin D deficiency, unspecifiedMixed hyperlipidemia 5 Sravan Cruz. [address], [place], [address] , [place]. tel:[phone] Referring Provider: Demetria [address], [place], [place], [address]. tel:[phone] PREV VISIT, NEW, AGE [age] [facility], [address], [place], [place], [address], [place] tel:[phone] [facility] PHysical (chief complaint) Encntr for general adult medical exam w/o abnormal findings 5 Sravan Cruz. [address], [place], [place], [address] , [place]. tel:[phone] Family History Family Member Type Diagnosis Age [...] to Rash) ordered Referral Referred To: Monroe Wlikins [address] [place], [phone] Ordered: Referrals: Monroe Wilkins. Evaluate and treat [...] just had manual breast exam done by compressed gas equipment mechanic recently and was also told left breast does not feel normal. Pt no longer needs pap smear per SHANK SKINNER per pt anxiety1 Pt has chronic a [...] Diet Related to Dietary Surveillance and Counseling Assessments Type Assessment Date No Information
--- NOTE | 2024-10-15 01:21 | ED_ITS ---
HPI - Extremity Injury (Lower) General Chief Complaint: Extremity Injury, Lower Stated Complaint: fall down stairs Time Seen by Provider: 10/15/24 00:56 Source: patient Mode of arrival: wheelchair Limitations: no limitations History of Present Illness HPI Narrative: This is a 49 year old female that presents to the ER after a fall down steps. Reports she slipped and fell down her steps. She did not hit her head or lose consciousness. Reports pain, swelling to the right foot. No other focal injuries or areas of pain. 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 Allergic rhinitis Chronic diarrhea Nausea & vomiting Marijuana smoker Adenomatous colon polyp Folliculitis Ovarian cyst Difficult bowel movements Stress incontinence Nasal crusting Nasal polyps Gastroesophageal reflux disease Hx of renal calculi Bronchitis Irritable bowel syndrome with constipation Helicobacter positive gastritis Nasal congestion Chronic sinusitis Facial pressure Facial pain Ear pressure PND (post-nasal drip) Open comedone Changing skin lesion Right shoulder pain Head trauma Colon cancer screening Schizophrenia Low vitamin D level Insomnia Diffuse abdominal pain Bipolar 2 disorder Tremors of nervous system Hot flashes Hypertension Surgical History Surgical History Hx of sinus surgery History of History of hysterectomy Family History Family History Grandparent Alcohol abuse Father Cancer Mother Diabetes mellitus Hypertension Depression Thyroid disorder Cirrhosis Daughter Thyroid disorder Sibling No problems noted. Other ADHD Allergies Anxiety Hyperlipidemia Liver disease Lung cancer Social History Social History Social History: Caffeine-daily Smoking packs per day: 1 Smoking cigarettes per day: 20.0 Years smoked: 30 Smoking pack-years: 30.00 Smoking status: Current every day smoker Tobacco type: cigarettes Second hand tobacco smoke exposure: Yes Additional smoking assessment comments: 1 ppd x 30 years Alcohol intake: never Substance use: current Substance use type: marijuana Other substance usage details: smoking 2x daily Last use: daily Do You Feel Safe in your Home?: Yes Lack of Transportation: No Lack of Food: Never True Current Housing: I Have Housing Concerned About Future Housing: No Difficulty Paying Gas/Electric Bills: No Difficulty Paying for Meds: No Currently Unemployed: No Education: High School Diploma/GED Difficulty w/ Childcare or Family Care: No Living arrangements: with family Occupation/Education: occupation 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 HEAD: Normocephalic, atraumatic. EYES: EOMI CHEST: No respiratory distress. HEART: Regular rate EXTREMITIES: Decreased active range of motion of the right foot. Edema about the right foot dorsal surface. Normal DP pulse. Normal sensation SKIN: Warm, dry, no rash. NEURO: No focal deficits. Alert and oriented x3. PSYCH: Normal mood and affect Course Course Emergency Course: patient updated on workup and agrees with plan of care Vital Signs Vital signs: Vital Signs Temperature 98.0 F 10/15/24 00:49 Pulse Rate 95 10/15/24 00:49 Respiratory Rate 16 10/15/24 00:49 Blood Pressure 156/90 H 10/15/24 00:49 Pulse Oximetry 96 10/15/24 00:49 Oxygen Delivery Room Air 10/15/24 00:49 Temperature 98.0 F 10/15/24 00:49 Pulse Rate 95 10/15/24 00:49 Respiratory Rate 16 10/15/24 00:49 Blood Pressure 156/90 H 10/15/24 00:49 Pulse Oximetry 96 10/15/24 00:49 Oxygen Delivery Room Air 10/15/24 00:49 Procedures Orthopedic Splinting/Casting Injury #1: Splinting/Casting Date: 10/15/24 Splinting/Casting Time: 02:06 Side: right Lower Extremity Injury Location: foot Lower Extremity Immobilizer: posterior splint Splint: customized in ED OCL: short leg Pre-Procedure Neuro Vascular Exam: normal Post-Procedure Neuro Vascular Exam: normal Other Orthopedic Equipment: crutches MDM - Extremity Injury (Lower) MDM Narrative Medical decision making narrative: Patient presents to the emergency department after a fall and steps with right foot injury. She denies hitting her head or loss of consciousness. No other focal injuries or areas of pain. She is neurovascularly intact. Right foot/ankle x-rays showing possible 3rd metatarsal fracture. She is quite uncomfortable. Will place in splint and give crutches. Follow up with podiatry Differential Diagnosis Differential diagnosis: Likely ankle sprain and strain, ankle fracture and other (foot fracture) Imaging Data My impression: Right foot x-ray: Right third metatarsal fracture at the base Critical Care Time Critical Care Time Critical Care Time: No Discharge Plan Discharge Clinical Impression: Metatarsal fracture Qualifiers: Encounter type: initial encounter Metatarsal bone: third Fracture type: closed Fracture alignment: nondisplaced Laterality: right Qualified Code(s): S92.334A - Nondisplaced fracture of third metatarsal bone, right foot, initial encounter for closed fracture Patient Disposition: Home Condition: Stable Instructions: Foot Fracture in Adults (ED) Additional Instructions: Return to the ER if you experience fever, redness and swelling of your extremity, numbness or any other symptoms that are concerning to you Wear splint. No weight on the affected leg. Ice and elevate extremity. Pain medication as needed and directed. Follow up with podiatry for further care. Patient Language: [place] Islander Prescriptions: New hydrocodone-acetaminophen 5-325 mg tablet 1 tablet PO Q6H PRN (Reason: pain) Qty: 14 0RF No Action colestipol 1 gram tablet 1 g PO BID 30 Days Qty: 60 11RF mupirocin 2 % ointment 1 applic topical .COMPLEX 14 Days Qty: 44 3RF Rx Instructions: 1 applic topically; Intranasal, 6 times per day for 2 weeks quetiapine [Seroquel] 25 mg tablet 25 mg PO QHS Qty: 30 0RF fluticasone propionate [Flonase Allergy Relief] 50 mcg/actuation spray,suspension 1 - 2 spray intranasal BID Qty: 16 3RF Rx Instructions: administer into each nostril. Aim back/up/out cholecalciferol (vitamin D3) 125 mcg (5,000 unit) capsule 125 mcg PO DAILY Qty: 90 1RF pantoprazole [Protonix] 40 mg tablet,delayed release (DR/EC) 40 mg PO QAM Qty: 90 1RF fluoxetine 20 mg capsule 20 mg PO DAILY Qty: 30 2RF bupropion HCl 150 mg tablet extended release 24 hr 150 mg PO QAM Qty: 90 1RF albuterol sulfate 90 mcg/actuation HFA aerosol inhaler 2 inh inhalation Q6H PRN (Reason: shortness of breath or wheezing) Qty: 8.5 2RF propranolol 80 mg tablet 80 mg PO Q12H Qty: 60 5RF alprazolam 0.5 mg tablet 0.5 mg PO BID PRN (Reason: anxiety) Qty: 60 0RF ondansetron HCl 4 mg tablet 4 mg PO Q8H PRN (Reason: nausea and vomiting) Qty: 30 2RF Follow-up/Referrals: Nakia Solis DPM [Physician] - Chente Smith MD [Primary Care Provider] -
[2024-10-15] MEDS: HYDROcodone/acetaminophen (*CRX) 5-325 MG TABLET 1 TAB PO (01:38)
[2024-10-15] MEDS: ONDANSETRON HCL ODT 4 MG TABLET PO (02:08)
== END 2024-10-15 03:37 | disposition home or self-care (01) ==
PROVIDERS: Emergency Provider Physician Assistant; PCP Family Medicine
DX: S92.334A Nondisplaced fracture of third metatarsal bone, right foot, initial encounter for closed fracture (principal); I10 Essential (primary) hypertension; K21.9 Gastro-esophageal reflux disease without esophagitis; K58.1 Irritable bowel syndrome with constipation; F31.81 Bipolar II disorder; F20.9 Schizophrenia, unspecified; Z87.442 Personal history of urinary calculi; Z86.0101 Personal history of adenomatous and serrated colon polyps; Z90.710 Acquired absence of both cervix and uterus; F17.210 Nicotine dependence, cigarettes, uncomplicated; Z79.899 Other long term (current) drug therapy; W10.9XXA Fall (on) (from) unspecified stairs and steps, initial encounter
CPT/HCPCS: 29515; 73610; 73630; 99284; A9270